=== PATIENT | female | born 1935 | race Caucasian/White ===

== ENCOUNTER 2016-07-19 20:36 | Observation (INO) | payer OTHER ==
[~2016-07-19 20:36] MED LIST: ALPR0.25 PO; AMLO5TAB2 PO; ASPI325T PO; CARB10TA2 PO; GLYB2.5T3 PO; HYDR-3580 PO; ISOS20TA PO; LACTCAP8 PO; LACTTAB8 PO; LEVO50TA4 PO; LEXA10TA PO; LOSA100T PO; METO25TA3 PO; NITR50VP SL; NYST15T TOPICAL; PROT40TA PO; RANO500 PO; SENN8.6T81 PO; oxygen
[2016-07-19 20:48] VITALS: BP 166/88; PULSE 73; RESP 18; TEMP 97.4; O2SAT 95
[2016-07-19] MEDS ORDERED: SODIUM CHLORIDE 0.9% FLUSH 5 ML FLUSH IVF PRN ×2 (21:00→23:00)
[2016-07-19 21:30] VITALS: O2SAT 95
--- NOTE | 2016-07-19 21:43 | RADRPT ---
EXAM DATE/TIME: 07/19/2016 21:31 [place] COMPARISON: CHEST SINGLE AP, May 26, 2016, 18:28. INDICATIONS : Chest pain MEDICAL HISTORY : Hypertension. SURGICAL HISTORY : Cardiac stents ENCOUNTER: Initial ACUITY: 1 day PAIN SCORE: 0/10 LOCATION: Bilateral chest FINDINGS: No acute infiltrates seen. No pleural effusion or pneumothorax. Mild cardiomegaly is stable. Patient has had previous median sternotomy and CABG. CONCLUSION: No evidence of acute cardiopulmonary disease. Compensated cardiomegaly. Mundo Gresham MD on July 19, 2016 at 21:41 Board Certified Radiologist. This report was verified electronically.
--- NOTE | 2016-07-19 21:45 | PD ---
HPI Chief Complaint: Chest Pain Time Seen by Provider: 20:49 Travel History International Travel<30 days: No Contact w/Intl Traveler<30days: No Traveled to known affect area: No History of Present Illness HPI 81-year-old female with history of CAD, 11 stents, CABG in 2006 with redo bypass in 2008, here for evaluation of chest pain. Patient describes substernal chest pressure that started about 30 minutes prior to arrival. She states that the pain has improved, however is still there. She follows with Dr. Shelley whom she states she saw 3 weeks ago and he told her that she was doing fine. No dyspnea. No paresthesias or motor deficits. The patient also expresses concerns that she may have a UTI. 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29) Cardiac Catheterization: Yes Cardiovascular Problems: Yes High Cholesterol: Yes Chemotherapy: Yes Chest Pain: Yes Congestive Heart Failure: Yes COPD: Yes Cerebrovascular Accident: Yes (left sided weakness) Coronary Artery Disease: Yes Diabetes: Yes Patient Takes Glucophage: No Diminished Hearing: No Endocrine: Yes Gastrointestinal Disorders: No GERD: Yes Glaucoma: No Genitourinary: Yes Headaches: No Hepatitis: No Hiatal Hernia: No Heparin Induced Thrombocytopen: No Hypertension: Yes Immune Disorder: No Implanted Vascular Access Dvce: Yes Kidney Stones: No Musculoskeletal: Yes (SPINAL STENOSIS) Neurologic: Yes (PARKINSONS ) Parkinson's Disease: Yes Psychiatric: No Reproductive: No Respiratory: Yes Migraines: No Myocardial Infarction: Yes Radiation Therapy: No Renal Failure: No Seizures: No Sickle Cell Disease: No Sleep Apnea: No Thyroid Disease: Yes Ulcer: No PNEUMOCCOCAL Vaccine (Year): 2007 ?: Not Menopausal: Yes : 11 Para: 4 Miscarriage: 7 Past Surgical History AICD: No Appendectomy: Yes Arteriovenous Shunt: No Body Medical Devices: cardiac stents x 11. Cardiac Surgery: Yes (QUADRUPLE BYPASS X2) Section: No Cholecystectomy: Yes Coronary Artery Bypass Graft: Yes Coronary Stent: Yes (11 STENTS) Ear Surgery: No Endocrine Surgery: No Eye Surgery: No Genitourinary Surgery: No Gynecologic Surgery: Yes (FIBROIDS REMOVED) Insulin Pump: No Joint Replacement: No Neurologic Surgery: Yes (TUMOR REMOVED FROM SPINE, TWO RIBS REMOVED) Oral Surgery: No Pacemaker: No Thoracic Surgery: Yes (QUAD BYPASS x2 (2007, 2009), ribs removed) Other Surgery: Yes (SARCOMA BILATERAL BREASTS,SPINE AND RIBS,UTERINE FIBROIDS) Social History Alcohol Use: No Tobacco Use: No ("QUIT 50 YEARS AGO") Substance Use: No Allergies-Medications (Allergen,Severity, Reaction): Coded Allergies: Contrast Media (Verified Allergy, Severe, Anaphylaxis, 07/19/16) Ilosone (Verified Allergy, Severe, UNKNOWN, 07/19/16) Iron (Verified Adverse Reaction, Intermediate, PT DOES NOT KNOW, 07/19/16) PT CAN'T TOLERATE "PO" IRON PILLS....PER DR. DARNELL WILLIS patient does not have allergy to iron (tolerated IV iron without issue)... PER DR. ALESHA MAXWELL (POM NOTE- 02/23/14) Reported Meds & Prescriptions Reported Meds & Active Scripts Active Reported [oxygen] 2 Hydrocodone-Acetaminophen 7.5-325 mg Tab 1 Tab PO Q6H PRN Sennosides 8.6 Mg Tab 17.2 Mg PO TID Ranexa ER 12 HR (Ranolazine) 500 Mg Tab 500 Mg PO DAILY Protonix (Pantoprazole Sodium) 40 Mg Tab 40 Mg PO DAILY Nystatin Topical (Nystatin) 100,000 unit/gm Cream 1 Applic TOPICAL ONCE PRN Nitroglycerin 5 Mg/Ml Inj 0.4 Mg SL PRN Metoprolol Tartrate 25 Mg Tab 25 Mg PO BID Losartan (Losartan Potassium) 100 Mg Tab 100 Mg PO DAILY Levothyroxine (Levothyroxine Sodium) 50 Mcg Tab 50 Mcg PO DAILY Probiotic (Lactobacillus Acidophilus) 1 Cap Cap 1 Cap PO DAILY Lactobacillus Acidophilus 1 Tab Tab 1 Tab PO TIDAC Isosorbide Mononitrate 20 Mg Tab 120 Mg PO BID Take 2 doses 7 hours apart. Glyburide 2.5 Mg Tab 2.5 Mg PO DAILY Take with meals at the same time each day Lexapro (Escitalopram Oxalate) 10 Mg Tab 10 Mg PO DAILY Carbidopa-Levodopa 10-100 Mg Tab 1 Tab PO TID Amlodipine (Amlodipine Besylate) 5 Mg Tab 5 Mg PO DAILY Aspirin 325 Mg Tab 325 Mg PO DAILY Alprazolam 0.25 Mg Tab 0.25 Mg PO HS PRN Review of Systems Except as stated in HPI: all other systems reviewed are Neg Physical Exam Narrative GENERAL: Well-developed, well-nourished, elderly-appearing female, awake, alert , no acute distress. SKIN: Warm and dry. HEAD: Atraumatic. Normocephalic. EYES: Pupils equal and round. No scleral icterus. No injection or drainage. ENT: Mucous membranes pink and moist. NECK: Trachea midline. No JVD. CARDIOVASCULAR: Regular rate and rhythm. Distal pulses brisk and equal bilaterally. RESPIRATORY: No accessory muscle use. Clear to auscultation. Breath sounds equal bilaterally. GASTROINTESTINAL: Abdomen soft, non-tender, nondistended. MUSCULOSKELETAL: No obvious deformities. No clubbing. No cyanosis. No edema. No chest wall tenderness. NEUROLOGICAL: Awake and alert. No obvious cranial nerve deficits. Motor grossly within normal limits. Normal speech. PSYCHIATRIC: Appropriate mood and affect; insight and judgment normal. Data Data Last Documented VS Vital Signs Date Time Temp Pulse Resp B/P Pulse Ox O2 Delivery O2 Flow Rate FiO2 07/19/16 21:30 95 Room Air 07/19/16 20:53 81 18 07/19/16 20:48 97.4 166/88 Orders Basic Metabolic Panel (Bmp) (07/19/16 20:58) Ckmb (Isoenzyme) Profile (07/19/16 20:58) Complete Blood Count With Diff (07/19/16 20:58) Prothrombin Time / Inr (Pt) (07/19/16 20:58) Act Partial Throm Time (Ptt) (07/19/16 20:58) Troponin I (07/19/16 20:58) Lipase (07/19/16 20:58) Chest, Single Ap (07/19/16 20:58) Ecg Monitoring (07/19/16 20:58) Bilateral Bp Monitoring (07/19/16 20:58) Iv Access Insert/Monitor (07/19/16 20:58) Oximetry (07/19/16 20:58) Sodium Chloride 0.9% Flush (Ns Flush) (07/19/16 21:00) Urinalysis - C+S If Indicated (07/19/16 20:58) Cath For Specimen (07/19/16 20:58) CKMB (07/19/16 21:20) CKMB% (07/19/16 21:20) Labs Laboratory Tests Test 07/19/16 07/19/16 21:20 21:42 White Blood Count 8.0 TH/MM3 Red Blood Count 4.99 MIL/MM3 Hemoglobin 13.5 GM/DL Hematocrit 41.0 % Mean Corpuscular Volume 82.1 FL Mean Corpuscular Hemoglobin 27.0 PG Mean Corpuscular Hemoglobin 32.8 % Concent Red Cell Distribution Width 15.9 % Platelet Count 153 TH/MM3 Mean Platelet Volume 9.4 FL Neutrophils (%) (Auto) 77.7 % Lymphocytes (%) (Auto) 13.3 % Monocytes (%) (Auto) 6.4 % Eosinophils (%) (Auto) 2.0 % Basophils (%) (Auto) 0.6 % Neutrophils # (Auto) 6.3 TH/MM3 Lymphocytes # (Auto) 1.1 TH/MM3 Monocytes # (Auto) 0.5 TH/MM3 Eosinophils # (Auto) 0.2 TH/MM3 Basophils # (Auto) 0.0 TH/MM3 CBC Comment DIFF FINAL Differential Comment Prothrombin Time 11.4 SEC Prothromb Time International 1.0 RATIO Ratio Activated Partial 22.1 SEC Thromboplast Time Sodium Level 136 MEQ/L Potassium Level 4.7 MEQ/L Chloride Level 101 MEQ/L Carbon Dioxide Level 27.3 MEQ/L Anion Gap 8 MEQ/L Blood Urea Nitrogen 28 MG/DL Creatinine 1.44 MG/DL Estimat Glomerular Filtration 35 ML/MIN Rate Random Glucose 146 MG/DL Calcium Level 9.3 MG/DL Total Creatine Kinase 103 U/L Creatine Kinase MB LESS THAN 0.5 NG/ML Troponin I LESS THAN 0.02 NG/ML Lipase 163 U/L Urine Color YELLOW Urine Turbidity HAZY Urine pH 5.5 Urine Specific [place] 1.028 Urine Protein 100 mg/dL Urine Glucose (UA) NEG mg/dL Urine Ketones NEG mg/dL Urine Occult Blood SMALL Urine Nitrite NEG Urine Bilirubin NEG Urine Urobilinogen LESS THAN 2.0 MG/DL Urine Leukocyte Esterase SMALL Urine RBC 20 /hpf Urine WBC 6 /hpf Urine Squamous Epithelial 1 /hpf Cells Urine Mucus FEW /lpf Microscopic Urinalysis Comment CATH-CULT NOT IND MDM Medical Decision Making Medical Screen Exam Complete: Yes Emergency Medical Condition: Yes Medical Record Reviewed: Yes Interpretation(s) EKG: Atrial fibrillation, rate 79, left axis deviation, RBBB with LAFB, T-wave inversions in V1 through V3, essentially unchanged from prior. Differential Diagnosis ACS, pneumothorax, pericarditis, PE, pneumonia, dissection Narrative Course Vital signs show heart rate 73, blood pressure 166/88, pulse ox 95% on room air , oral temp of 97.4F. CBC is unremarkable. BMP is remarkable for BUN 20, creatinine 1.44, GFR 35 which is around her baseline, otherwise unremarkable. Lipase is 163. Cardiac enzymes are negative. Catheterized urine specimen shows hazy urine, 100 protein, small occult blood, small leukocyte esterase, 20 RBCs, 6 WBCs. UA findings are not suggestive of UTI and RBCs are likely from slight trauma from catheter specimen. Chest x-ray shows no acute disease., Tachycardia megaly. Case discussed with head coach Dr. Brown who is covering for the patient's head coach Dr. Shelley. Given significant cardiac history, he agrees with keeping the patient overnight in the chest pain center for further cardiac evaluation. The patient was made aware of all findings and of plan for admission. Diagnosis Primary Impression: Chest pain Qualified Code: R07.9 - Chest pain, unspecified type Admitting Information Admitting Physician Requests: Observation Diony Juan MD Jul 19, 2016 21:45
[2016-07-19 22:01] LABS: BLOOD, URINE SMALL (NEG); GLUCOSE,URINE NEG (NEG); KETONE, URINE NEG (NEG); MUCUS URINE FEW /lpf (OCC); NITRITE,URINE NEG (NEG); PH, URINE 5.5 (5.0-8.5); SQUAMOUS EPITHELIAL CELL URINE 1 /hpf (0-5); URINE COLOR YELLOW (YELLW/STRAW)
[2016-07-19 22:02] LABS: COMMENT (UR) CATH-CULT NOT IND; CULTURE IF INDICATED CATH CULTURE NOT IND
[2016-07-19 22:04] LABS: AUTOMATED NEUTROPHIL # 6.3 TH/MM3 (1.8-7.7); BASOPHIL % 0.6 % (0.0-2.0); EOSINOPHIL # 0.2 TH/MM3 (0-0.4); HEMO FLAGS DIFF FINAL; LYMPH % 13.3 % (9.0-44.0); LYMPHOCYTE # 1.1 TH/MM3 (1.0-4.8); MEAN CELL VOLUME 82.1 FL (80.0-100.0); MEAN CORPUSCULAR HGB CONC 32.8 % (32.0-36.0); MONO % 6.4 % (0.0-8.0); NEUT % 77.7 % (16.0-70.0); PLATELET COUNT 153 TH/MM3 (150-450); RED BLOOD COUNT 4.99 MIL/MM3 (4.00-5.30); RED CELL DISTRIBUTION WIDTH 15.9 % (11.6-17.2)
[2016-07-19 22:23] LABS: ANION GAP 8 MEQ/L (5-15); APTT (PATIENT) 22.1 SEC (24.3-30.1); PROTHROMBIN TIME - PATIENT 11.4 SEC (9.8-11.6)
[2016-07-19 22:29] LABS: BICARBONATE 27.3 MEQ/L (21.0-32.0); BLOOD UREA NITROGEN 28 MG/DL (7-18); CHLORIDE 101 MEQ/L (98-107); CREATINE KINASE 103 U/L (26-192); GLOMERULAR FILTRATION RATE 35 ML/MIN (>89); SODIUM (NA) 136 MEQ/L (136-145)
[2016-07-19 22:30] LABS: POTASSIUM 4.7 MEQ/L (3.5-5.1)
[2016-07-19 22:43] LABS: CKMB LESS THAN 0.5 NG/ML (0.5-3.6)
[2016-07-19 23:00] VITALS: BP 144/72; PULSE 82; RESP 18; O2SAT 99
[2016-07-19] MEDS ORDERED: ASPIRIN 81 MG CHEW TAB PO ONE (23:00)
[2016-07-20] VITALS (9 sets, daily range): BP systolic 134–169; BP diastolic 60–80; PULSE 58–88; RESP 18–20; TEMP 97.9–99.4; O2SAT 95–97
[2016-07-20] MEDS: SODIUM CHLORIDE 0.9% FLUSH 5 ML FLUSH IVF SCH ×2 (09:00→21:11)
[2016-07-20] MEDS: RANOLAZINE 500 MG EXTENDED RELEASE TAB PO SCH (12:00)
[2016-07-20] MEDS: LACTOBACILLUS ACIDOPHILUS TAB PO SCH (12:14)
[2016-07-20] MEDS: LEVOTHYROXINE SODIUM 50 MCG TAB PO SCH (12:14)
[2016-07-20] MEDS: ESCITALOPRAM OXALATE 10 MG TAB PO SCH (12:15)
[2016-07-20] MEDS: ASPIRIN 325 MG TAB PO SCH (12:15)
[2016-07-20] MEDS: glyBURIDE 2.5 MG TAB PO SCH (12:15)
[2016-07-20] MEDS: amLODIPine BESYLATE 5 MG TAB PO SCH (12:15)
[2016-07-20] MEDS: PANTOPRAZOLE SOD 40 MG DELAYED RELEASE TAB PO SCH (12:15)
[2016-07-20] MEDS: METOPROLOL TARTRATE 25 MG TAB PO SCH ×2 (12:15→21:11)
[2016-07-20] MEDS: LOSARTAN 50 MG TAB PO SCH (12:15)
--- NOTE | 2016-07-20 13:03 | HHI.DCPOC ---
Discharge Care Plan Diagnosis: (1) Chest pain (2) Hx of CABG (3) Atrial fibrillation (4) H/O heart artery stent Goals to Promote Your Health * To prevent worsening of your condition and complications * To maintain your health at the optimal level Directions to Meet Your Goals Take your medications as prescribed Follow your dietary instruction Follow activity as directed Keep your appointments as scheduled Take your immunizations and boosters as scheduled If your symptoms worsen call your PCP, if no PCP go to Urgent Care Center or Emergency Room Smoking is Dangerous to Your Health. Avoid second hand smoke Call the 24-hour hour crisis hotline for domestic abuse at [facility] Jul 20, 2016 13:03
--- NOTE | 2016-07-20 14:18 | MH ---
cc: VAZQUEZ BUTLER MD DATE OF ADMISSION: 07/19/2016 DATE OF : 1935 CHIEF COMPLAINT Chest pain HISTORY OF PRESENT ILLNESS This 81-year-old patient with known coronary artery disease including open heart surgery and 11 cardiac stents and developed chest pain approximately four to five p.m. last night he characterized as "someone took a screwdriver into the center of my chest". There was radiation of pain to bilateral jaws and her neck area. Duration was approximately 15 minutes during this time it hurt to take a deep breath and she was nauseated diaphoretic and states she vomited in the emergency squad. No known precipitating factors or relieving factors. The patient followed with Dr. Shelley states she has seen him 3 weeks ago. PAST MEDICAL HISTORY: Past medical history includes; 1. COPD 2. Diabetes 3. hyperlipidemia 4. Hypertension 5. Parkinson's disease 6. Atrial fibrillation. 7. congestive heart failure 8. gastroesophageal reflux disease 9. 11 cardiac stents PAST SURGICAL HISTORY She had coronary artery bypass graft in 2006 and a redo bypass in 2008. SOCIAL HISTORY She lives at home with her son, her son helps take care of her she quit smoking at age 21. No alcohol or illegal drug use. States she has not been able to walk and has been progressively declining over the past 6 weeks and does follow with her primary provider and her primary care provider is made aware of this prior to arrival to this emergency room visit. PAST CARDIAC TESTING: She had seen Dr. Shelley three ago, at that time he recommended a cardiac nuclear stress test. She subsequently has declined that testing and she was admitted to the chest pain center in the fall of 2015 at that time was also recommended for her to have a nuclear stress test which she declined. MEDICATIONS Current medications include 1. Losartan 100 mg daily. 1. Lexapro 10 mg daily 2. a probiotic 1 tablet daily. 3. Xanax 0.25 mg q.h.s. p.r.n. as needed for anxiety. 4. Metoprolol Tartrate 25 mg b.i.d. 5. Ranexa 500 mg daily. 6. Amlodipine 5 mg daily. 7. Carbidopa / Levodopa 10/100, 3 tablets p.o. b.i.d. 8. Imdur 120 mg p.o. b.i.d. 9. Nitroglycerin sublingual p.r.n. as needed for chest pain. 10. Aspirin 325 mg daily. 11. Hydrocodone / Acetaminophen 7.5 / 3.25 mg tablet 1 tablet q.6 h p.r.n. 12. Protonix 40 mg daily. 13. Glipizide 2.5 mg daily. 14. Levothyroxine 50 mcg daily. ALLERGIES CONTRAST MEDIA IRON ILOSONE REVIEW OF SYSTEMS IN GENERAL: She states she has been in her general state of health with no recent illness, fevers, fatigue, malaise, reports an increasing progression of weakness where she is unable to walk. She is following with her primary care provider regarding this. Prior to that she was not walking much improved pretty sedentary. HEAD, EYES, EARS, NOSE, AND THROAT: No headache or dysphagia. CARDIOVASCULAR SYSTEM: No current chest pain, otherwise as stated above. RESPIRATORY: No current shortness of breath. No recent upper respiratory infection, cough, wheeze or hemoptysis. ABDOMEN: No diarrhea, constipation pain distension, blood in stools, nausea or vomiting other than during chest pain episode as mentioned above. GENITOURINARY: No dysuria or urgency, frequency. Does report a change in her urine is more concentrated and foul-smelling EXTREMITIES: No lower leg pain. Reports occasional numbness in her right lower extremity this is chronic and unchanged. MUSCULOSKELETAL: No change in Range of motion, no discomfort. Warmth, redness or swelling of her joints. Reports a progressive fatigue E[place] and is unable to walk and has been mostly bed bound for the last couple weeks. NEUROLOGIC: No motor or sensory deficits, loss of consciousness or change in memory. PSYCHIATRIC: No anxiety or depression. SKIN: No concerning lesions or rashes. PHYSICAL EXAMINATION VITAL SIGNS: Temperature is 98.4, pulse 80, respiratory 20, blood pressure 135/80 and 96% on room air. IN GENERAL: She is alert, obese, well-nourished, well-developed in no acute distress pleasant female. HEAD, EYES, EARS, NOSE, AND THROAT: Head: Normocephalic, atraumatic. Eyes clear. Pupils clear conjunctivae without injection. NECK: Neck is supple. Trachea is midline. CARDIOVASCULAR SYSTEM: She has an regular rate that is controlled without murmur, rub or gallop. No JVD. S1-S2. No S3. No S4. RESPIRATORY: Clear lungs throughout bilateral with no crackles, wheeze or rhonchi. Diminished in the bases. She is nonlabored, speaking in full sentences. Symmetrical chest rise. ABDOMEN: Abdomen is obese, soft, nontender, nondistended. Positive bowel sounds. EXTREMITIES: Pulses +2 x4. No dependent edema. NEUROLOGIC: Cranial nerves II through XII grossly intact. Motor strength 5/5. MUSCULOSKELETAL: Normal tone x4. She is nontender. No obvious deformities. PSYCHIATRIC: Psych she is alert, oriented x3 has a pleasant affect appropriate to mood, insight and judgment. SKIN: Skin is warm and dry with a normal turgor and texture. LABORATORY CBC is unremarkable. Chemistry has a creatinine of 1.44 and random glucose 146 otherwise unremarkable. Three sets of cardiac enzymes are negative. Coagulation is unremarkable. Also UA was completed is unremarkable. Chest x-ray Read by radiologist has a conclusion of no evidence of acute cardiopulmonary disease. Compensated cardiomegaly. Three EKG's. Atrial fibrillation with the right bundle branch block and T-wave abnormality and Q-waves in her inferior leads. ASSESSMENT/PLAN Chest pain. Patient has been admitted to the chest pain center. She was ruled out with three sets of EKG's and cardiac enzymes was also seen evaluated by Dr. Vazquez Butler. The patient was offered and encouraged to have a chemical stress test. The patient is adamant that she will not have a chemical stress test and we have called Dr. Myers who was covering for Dr. Shelley and he has been made aware of the patient's arrival to chest pain center and her continued refusal for any further cardiac testing. She states she would like to go home. All of her home medications have been reordered while appropriate in the chest pain center regarding her concern of her dark urine have encouraged her to increase her water intake. She has been encouraged to follow up with her primary care provider regarding her inability to walk over the past few weeks. The patient states her primary care provider is aware and is doing further testing. DICTATED BY: MELISSA Benedict Brent Allen/yomi /1:08 PM /2:15 PM
--- NOTE | 2016-07-20 15:59 | EKG ---
Date Performed: 07/20/2016 Time Performed: 03:54:50 PTAGE: 81 years EKG: ATRIAL FIBRILLATION INDETERMINATE AXIS RIGHT BUNDLE BRANCH BLOCK LEFT ANTERIOR FASCICULAR B LOCK MODERATE T-WAVE ABNORMALITY, CONSIDER LATERAL ISCHEMIA MODERATE T-WAVE ABNORMALITY, CONSIDER INF ERIOR ISCHEMIA ABNORMAL ECG Since PREVIOUS TRACING , no significant change noted PREVIOUS TRACIN07/19/2016 23.45 DOCTOR: Asuncion Oakes Interpretating Date/Time 07/20/2016 15:57:48
--- NOTE | 2016-07-20 16:00 | EKG ---
Date Performed: 07/19/2016 Time Performed: 23:45:16 PTAGE: 81 years EKG: ATRIAL FIBRILLATION RIGHT BUNDLE BRANCH BLOCK LEFT ANTERIOR FASCICULAR BLOCK ABNORMAL ECG S jim PREVIOUS TRACING , no significant change noted PREVIOUS TRACIN07/19/2016 19.44 DOCTOR: Asuncion Oakes Interpretating Date/Time 07/20/2016 15:59:24
--- NOTE | 2016-07-20 16:02 | EKG ---
Date Performed: 07/19/2016 Time Performed: 19:44:25 PTAGE: 81 years EKG: ATRIAL FIBRILLATION RIGHT BUNDLE BRANCH BLOCK LEFT ANTERIOR FASCICULAR BLOCK ABNORMAL ECG S jim PREVIOUS TRACING , no significant change noted PREVIOUS TRACIN05/27/2016 00.25 DOCTOR: Asuncion Oakes Interpretating Date/Time 07/20/2016 16:01:04
[2016-07-21 00:04] VITALS: BP 145/70; PULSE 64; RESP 20; TEMP 98.3; O2SAT 95
[2016-07-21 03:27] VITALS: BP 117/67; PULSE 57; RESP 20; TEMP 98; O2SAT 95
[2016-07-21] MEDS: LEVOTHYROXINE SODIUM 50 MCG TAB PO SCH (05:43)
[2016-07-21 08:00] VITALS: BP 194/80; PULSE 56; PULSE 62; RESP 20; TEMP 96.4; O2SAT 97
[2016-07-21 08:02] VITALS: O2SAT 96
[2016-07-21] MEDS: PANTOPRAZOLE SOD 40 MG DELAYED RELEASE TAB PO SCH (08:18)
[2016-07-21] MEDS: LACTOBACILLUS ACIDOPHILUS TAB PO SCH (08:18)
[2016-07-21] MEDS: glyBURIDE 2.5 MG TAB PO SCH (08:18)
[2016-07-21] MEDS: RANOLAZINE 500 MG EXTENDED RELEASE TAB PO SCH (08:19)
[2016-07-21] MEDS: METOPROLOL TARTRATE 25 MG TAB PO SCH (08:19)
[2016-07-21] MEDS: ASPIRIN 325 MG TAB PO SCH (08:19)
[2016-07-21] MEDS: LOSARTAN 50 MG TAB PO SCH (08:19)
[2016-07-21] MEDS: amLODIPine BESYLATE 5 MG TAB PO SCH (08:19)
[2016-07-21] MEDS: SODIUM CHLORIDE 0.9% FLUSH 5 ML FLUSH IVF SCH (08:19)
[2016-07-21] MEDS: ESCITALOPRAM OXALATE 10 MG TAB PO SCH (08:19)
[2016-07-21] MEDS ORDERED: ONDANSETRON HCL 4 MG/2 ML VIAL IV PUSH ONE (10:00)
[2016-07-21] MEDS ORDERED: COMMODE 3-IN-11 MIS (10:51)
[2016-07-21 12:00] VITALS: BP 175/82; PULSE 73; RESP 20; TEMP 95; O2SAT 98
== END 2016-07-21 13:30 | disposition home or self-care (01) ==
LOC: NEPE 20:36 → NEDA 22:52 → NEPFCDU 07-20 01:03
PROVIDERS: ADMIT Internal Medicine Interventional Cardiology; ATTEND Internal Medicine Interventional Cardiology
DX: R07.89 Other chest pain (principal); I48.91 Unspecified atrial fibrillation; I25.10 Atherosclerotic heart disease of native coronary artery without angina pectoris; I10 Essential (primary) hypertension; I50.9 Heart failure, unspecified; I25.2 Old myocardial infarction; E78.5 Hyperlipidemia, unspecified; E11.9 Type 2 diabetes mellitus without complications; J44.9 Chronic obstructive pulmonary disease, unspecified; J45.909 Unspecified asthma, uncomplicated; K21.9 Gastro-esophageal reflux disease without esophagitis; E78.00 Pure hypercholesterolemia, unspecified; M19.90 Unspecified osteoarthritis, unspecified site; Z95.5 Presence of coronary angioplasty implant and graft; Z95.1 Presence of aortocoronary bypass graft; Z86.73 Personal history of transient ischemic attack (TIA), and cerebral infarction without residual deficits; Z87.891 Personal history of nicotine dependence
CPT/HCPCS: 71010; 80048; 81001; 82550; 82552; 83690; 84484; 85025; 85610; 85730; 93005; 99285; G0378; J2405

== ENCOUNTER 2017-01-03 18:18 | Emergency (ER) | payer OTHER ==
[~2017-01-03] VITALS: Ht 162.6 cm; Wt 118.0 kg
[~2017-01-03 18:18] MED LIST changes: +COMMODE 3-IN-11 MIS; -LACTTAB8 PO; -NYST15T TOPICAL; -SENN8.6T81 PO; -oxygen
[2017-01-03 18:37] VITALS: BP 157/70; PULSE 60; RESP 20; TEMP 98.2; O2SAT 97
[2017-01-03] MEDS ORDERED: NEUR300C PO (18:45)
--- NOTE | 2017-01-03 18:54 | PD ---
HPI . 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 Patient tells me that she has been experiencing generalized weakness for quite some time and thinks that it may have worsened slightly yesterday and today. She decided to come in for further evaluation as she thinks it has become somewhat harder for her to get around her house. She does live with her son, who is a IRR[employer]ATION [employer]ER and helps her out on a daily basis. Today she is only reporting generalized weakness and tells me she feels fatigued. She also admits to dry mouth that has been going on for the past few weeks. She denies any recent fall or injury. She denies any nausea, vomiting, chest pain, shortness of breath or abdominal pain. She does admit to occasional constipation, which is chronic in nature. 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29) Cardiac Catheterization: Yes Cardiovascular Problems: Yes High Cholesterol: Yes Chemotherapy: Yes Chest Pain: Yes Congestive Heart Failure: Yes COPD: Yes Cerebrovascular Accident: Yes (left sided weakness) Coronary Artery Disease: Yes Diabetes: Yes Patient Takes Glucophage: No Diminished Hearing: No Endocrine: Yes Gastrointestinal Disorders: No GERD: Yes Glaucoma: No Genitourinary: Yes Headaches: No Hepatitis: No Hiatal Hernia: No Heparin Induced Thrombocytopen: No Hypertension: Yes Immune Disorder: No Implanted Vascular Access Dvce: Yes Kidney Stones: No Medical other: Yes (RHEUMATIC FEVER A CHILD) Musculoskeletal: Yes (SPINAL STENOSIS) Neurologic: Yes (PARKINSONS ) Parkinson's Disease: Yes Psychiatric: No Reproductive: No Respiratory: Yes Migraines: No Myocardial Infarction: Yes Radiation Therapy: No Renal Failure: No Seizures: No Sickle Cell Disease: No Sleep Apnea: No Thyroid Disease: Yes Ulcer: No Tetanus Vaccination: > 5 Years Influenza Vaccination: Yes PNEUMOCCOCAL Vaccine (Year): 2007 ?: Not Menopausal: Yes : 11 Para: 4 Miscarriage: 7 Past Surgical History AICD: No Appendectomy: Yes Arteriovenous Shunt: No Body Medical Devices: cardiac stents x 11. Cardiac Surgery: Yes (QUADRUPLE BYPASS X2) Section: No Cholecystectomy: Yes Coronary Artery Bypass Graft: Yes Coronary Stent: Yes (11 STENTS) Ear Surgery: No Endocrine Surgery: No Eye Surgery: No Genitourinary Surgery: No Gynecologic Surgery: Yes (FIBROIDS REMOVED) Insulin Pump: No Joint Replacement: No Neurologic Surgery: Yes (TUMOR REMOVED FROM SPINE, TWO RIBS REMOVED) Oral Surgery: No Pacemaker: No Thoracic Surgery: Yes (QUAD BYPASS x2 (2006, 2008), ribs removed) Other Surgery: Yes (SARCOMA BILATERAL BREASTS,SPINE AND RIBS,UTERINE FIBROIDS) Family History Family Myocardial Infarction: Yes Social History Alcohol Use: No Tobacco Use: No ("QUIT 50 YEARS AGO") Substance Use: No (PT DENIES) Allergies-Medications (Allergen,Severity, Reaction): Coded Allergies: Contrast Media (Verified Allergy, Severe, Anaphylaxis, 01/03/17) Ilosone (Verified Allergy, Severe, RASH, 01/03/17) Iron (Verified Adverse Reaction, Intermediate, RASH, 01/03/17) Reported Meds & Prescriptions Reported Meds & Active Scripts Active Reported Neurontin (Gabapentin) 300 Mg Cap 300 Mg PO TID Hydrocodone-Acetaminophen 7.5-325 mg Tab 1 Tab PO Q6H PRN Ranexa ER 12 HR (Ranolazine) 500 Mg Tab 500 Mg PO DAILY Protonix (Pantoprazole Sodium) 40 Mg Tab 40 Mg PO DAILY Nitroglycerin 5 Mg/Ml Inj 0.4 Mg SL PRN Metoprolol Tartrate 25 Mg Tab 25 Mg PO BID Losartan (Losartan Potassium) 100 Mg Tab 100 Mg PO DAILY Levothyroxine (Levothyroxine Sodium) 50 Mcg Tab 50 Mcg PO DAILY Probiotic (Lactobacillus Acidophilus) 1 Cap Cap 1 Cap PO DAILY Isosorbide Mononitrate 20 Mg Tab 120 Mg PO BID Take 2 doses 7 hours apart. Glyburide 2.5 Mg Tab 2.5 Mg PO DAILY Take with meals at the same time each day Lexapro (Escitalopram Oxalate) 10 Mg Tab 10 Mg PO DAILY Carbidopa-Levodopa 10-100 Mg Tab 3 Tab PO BID Amlodipine (Amlodipine Besylate) 5 Mg Tab 5 Mg PO DAILY Aspirin 325 Mg Tab 325 Mg PO DAILY Alprazolam 0.25 Mg Tab 0.25 Mg PO HS PRN Review of Systems General / Constitutional: No: Fever Eyes: No: Visual changes HENT: No: Headaches Cardiovascular: No: Chest Pain or Discomfort Respiratory: No: Shortness of Breath Gastrointestinal: No: Abdominal Pain Genitourinary: No: Dysuria Musculoskeletal: No: Pain Skin: No Rash Neurologic: Positive: Weakness Psychiatric: No: Depression Endocrine: No: Polydipsia Hematologic/Lymphatic: No: Easy Bruising Physical Exam Narrative GENERAL: AAO x 3, no acute distress, Well-nourished, well-developed patient. On nasal cannula. SKIN: Warm and dry. No visible rashes or bruising. Excoriations scattered over bilateral lower extremities right greater than left. no evidence of cellulitis HEAD: Normocephalic and atraumatic. EYES: No scleral icterus. No injection or drainage. EOM intact, PERRLA ENT: No nasal drainage noted. Mucous membranes pink. Airway patent. NECK: Supple, trachea midline. No JVD. No lymphadenopathy. CARDIOVASCULAR: Regular rate and rhythm without murmurs, gallops, or rubs. RESPIRATORY: Breath sounds equally diminished bilaterally. No accessory muscle use. No rhonchi or rales. No wheezing. GASTROINTESTINAL: Abdomen soft, non-tender, nondistended. Normoactive bowel sounds EXTREMITIES: No cyanosis or edema. Pedal pulses intact bilaterally. BACK: Nontender without obvious deformity. No CVA tenderness. NEURO: CN II-12 intact, senior sales associate strength normal b/l, UE and LE 5/5, no focal deficits PSYCH: AAO x 3, normal affect. Data Data Last Documented VS Vital Signs Date Time Temp Pulse Resp B/P Pulse Ox O2 Delivery O2 Flow Rate FiO2 01/03/17 18:40 59 18 98 Nasal Cannula 2 01/03/17 18:37 98.2 157/70 Orders Electrocardiogram (01/03/17 ) Complete Blood Count With Diff (01/03/17 19:05) Comprehensive Metabolic Panel (01/03/17 19:05) Prothrombin Time / Inr (Pt) (01/03/17 19:05) Act Partial Throm Time (Ptt) (01/03/17 19:05) Urinalysis - C+S If Indicated (01/03/17 19:05) Chest, Single Ap (01/03/17 ) Urine Culture (01/03/17 21:40) Labs Laboratory Tests Test 01/03/17 01/03/17 19:20 21:40 White Blood Count 5.5 TH/MM3 Red Blood Count 4.44 MIL/MM3 Hemoglobin 12.8 GM/DL Hematocrit 37.8 % Mean Corpuscular Volume 85.3 FL Mean Corpuscular Hemoglobin 28.7 PG Mean Corpuscular Hemoglobin 33.7 % Concent Red Cell Distribution Width 14.1 % Platelet Count 153 TH/MM3 Mean Platelet Volume 9.9 FL Neutrophils (%) (Auto) 71.0 % Lymphocytes (%) (Auto) 18.8 % Monocytes (%) (Auto) 8.1 % Eosinophils (%) (Auto) 1.7 % Basophils (%) (Auto) 0.4 % Neutrophils # (Auto) 3.9 TH/MM3 Lymphocytes # (Auto) 1.0 TH/MM3 Monocytes # (Auto) 0.4 TH/MM3 Eosinophils # (Auto) 0.1 TH/MM3 Basophils # (Auto) 0.0 TH/MM3 CBC Comment DIFF FINAL Differential Comment Prothrombin Time 11.6 SEC Prothromb Time International 1.0 RATIO Ratio Activated Partial 25.4 SEC Thromboplast Time Sodium Level 138 MEQ/L Potassium Level 4.5 MEQ/L Chloride Level 104 MEQ/L Carbon Dioxide Level 25.9 MEQ/L Anion Gap 8 MEQ/L Blood Urea Nitrogen 24 MG/DL Creatinine 1.35 MG/DL Estimat Glomerular Filtration 38 ML/MIN Rate Random Glucose 161 MG/DL Calcium Level 9.3 MG/DL Total Bilirubin 0.9 MG/DL Aspartate Amino Transf 25 U/L (AST/SGOT) Alanine Aminotransferase 7 U/L (ALT/SGPT) Alkaline Phosphatase 55 U/L Total Protein 7.3 GM/DL Albumin 3.6 GM/DL Urine Color DARK-YELLOW Urine Turbidity HAZY Urine pH 5.5 Urine Specific [place] 1.025 Urine Protein 30 mg/dL Urine Glucose (UA) NEG mg/dL Urine Ketones TRACE mg/dL Urine Occult Blood NEG Urine Nitrite NEG Urine Bilirubin NEG Urine Urobilinogen 2.0 MG/DL Urine Leukocyte Esterase TRACE Urine RBC 6 /hpf Urine WBC 6 /hpf Urine Squamous Epithelial 6 /hpf Cells Urine Amorphous Sediment RARE Urine Bacteria MANY /hpf Urine Hyaline Casts 3 /lpf Urine Mucus FEW /lpf Microscopic Urinalysis Comment CULTURE INDICATED MDM Medical Decision Making Medical Screen Exam Complete: Yes Emergency Medical Condition: Yes Medical Record Reviewed: Yes Differential Diagnosis Parkinson's-related fatigue, less likely CVA, urinary tract infection, pneumonia , hypothyroidism, Narrative Course 81-year-old female here with complaints of over one months worth of weakness. She has no specific complaints other than generalized weakness and some dry mouth. Labs and chest x-ray have been ordered. This may be related to her medications and chronic conditions. However we will rule out any type of acute infection. Labs have been reviewed. Patient appears to have a urinary tract infection, which can explain her symptoms. I will go ahead and treat her with a course of antibiotics. Ultimately she'll need follow-up to primary care provider to make sure that this has been resolved. The rest of her labs are fairly unremarkable compared to prior labs in the computer. Chest x-ray is unremarkable. I discussed these findings with the patient. She was understanding. Case discussed with Dr. Eason. Patient verbalized understanding of instructions, questions were answered, and thanked me for their care. I advised them if their condition worsens, please return to the nearest emergency room for further care. Diagnosis Primary Impression: UTI (urinary tract infection) Qualified Code: N30.01 - Acute cystitis with hematuria Patient Instructions: General Instructions Additional Instructions: Please return to emergency department if your symptoms return or worsen. Follow up with your primary care provider. Take medications as prescribed. Med/Other Pt SpecificInfo: Prescription(s) given Scripts Nitrofurantoin Monohydrate Macrocrystals (Macrobid)100 Mg [id number] Mg PO BID 7 Days Ref 0 Prov:Walter Myers MD 01/03/17 Disposition: DISCHARGE HOME Condition: Stable Juliana Bullock Jan 03, 2017 18:54
[2017-01-03 19:46] LABS: AUTOMATED NEUTROPHIL # 3.9 TH/MM3 (1.8-7.7); BASOPHIL % 0.4 % (0.0-2.0); EOSINOPHIL # 0.1 TH/MM3 (0-0.4); EOSINOPHIL % 1.7 % (0.0-4.0); HEMATOCRIT 37.8 % (35.0-46.0); HEMO FLAGS DIFF FINAL; LYMPH % 18.8 % (9.0-44.0); MEAN CELL VOLUME 85.3 FL (80.0-100.0); MEAN CORPUSCULAR HEMOGLOBIN 28.7 PG (27.0-34.0); MEAN CORPUSCULAR HGB CONC 33.7 % (32.0-36.0); MONO % 8.1 % (0.0-8.0); PLATELET COUNT 153 TH/MM3 (150-450); RED BLOOD COUNT 4.44 MIL/MM3 (4.00-5.30); RED CELL DISTRIBUTION WIDTH 14.1 % (11.6-17.2); WHITE BLOOD COUNT 5.5 TH/MM3 (4.0-11.0)
[2017-01-03 19:57] LABS: APTT (PATIENT) 25.4 SEC (24.3-30.1); PROTHROMBIN TIME - PATIENT 11.6 SEC (9.8-11.6)
[2017-01-03 20:12] LABS: ALT (GPT) 7 U/L (10-53)
[2017-01-03 20:15] LABS: ALKALINE PHOSPHATASE 55 U/L (45-117); TOTAL BILIRUBIN ADULT 0.9 MG/DL (0.2-1.0)
[2017-01-03 20:22] LABS: ANION GAP 8 MEQ/L (5-15); AST (GOT) 25 U/L (15-37); BICARBONATE 25.9 MEQ/L (21.0-32.0); BLOOD UREA NITROGEN 24 MG/DL (7-18); CHLORIDE 104 MEQ/L (98-107); GLOMERULAR FILTRATION RATE 38 ML/MIN (>89); POTASSIUM 4.5 MEQ/L (3.5-5.1); SODIUM (NA) 138 MEQ/L (136-145)
--- NOTE | 2017-01-03 20:40 | RADRPT ---
EXAM DATE/TIME: 01/03/2017 19:46 [facility] COMPARISON: CHEST SINGLE AP, July 19, 2016, 21:31. INDICATIONS : Weakness, cough MEDICAL HISTORY : Hypertension. Diabetes mellitus type II. Cardiovascular disease. SURGICAL HISTORY : CABG. ENCOUNTER: Initial ACUITY: 1 day PAIN SCORE: 6/10 LOCATION: Bilateral chest FINDINGS: Cardiomegaly, median sternotomy, CABG, similar to prior. The central bronchopulmonary markings are f airly well delineated. Calcified nodule lower left lung stable. No focal infiltrate seen. Both hem idiaphragms well delineated. CONCLUSION: No acute findings. Cardiomegaly. Cruz Art MD on January 03, 2017 at 20:36 Board Certified Radiologist. This report was verified electronically.
[2017-01-03 22:11] LABS: BACTERIA, URINE MANY /hpf; BLOOD, URINE NEG (NEG); COMMENT (UR) CULTURE INDICATED; CULTURE IF INDICATED CULTURE INDICATED; GLUCOSE,URINE NEG (NEG); HYALINE CAST, URINE 3 /lpf (RARE); KETONE, URINE TRACE mg/dL (NEG); MUCUS URINE FEW /lpf (OCC); NITRITE,URINE NEG (NEG); PH, URINE 5.5 (5.0-8.5); SQUAMOUS EPITHELIAL CELL URINE 6 /hpf (0-5); URINE COLOR DARK-YELLOW (YELLW/STRAW)
[2017-01-03] MEDS ORDERED: MACR100C2 PO (22:16)
[2017-01-03 23:04] VITALS: BP 155/98; PULSE 88; RESP 16; O2SAT 96
[2017-01-04] MEDS ORDERED: ONDANSETRON ODT 4 MG TAB PO ONE (00:30)
--- NOTE | 2017-01-04 13:45 | EKG ---
Date Performed: 01/03/2017 Time Performed: 18:58:13 PTAGE: 81 years EKG: ATRIAL FIBRILLATION MARKED RIGHT AXIS DEVIATION RIGHT BUNDLE BRANCH BLOCK MODERATE T-WAVE A BNORMALITY, CONSIDER LATERAL ISCHEMIA ABNORMAL ECG Compared to prior tracing no significant change PREVIOUS TRACING : 07/20/2016 03.54 DOCTOR: Sunday Forbes Interpretating Date/Time 01/04/2017 13:42:44
== END 2017-01-04 00:48 | disposition home or self-care (01) ==
LOC: NEPE 18:18
DX: N30.01 Acute cystitis with hematuria (principal); R94.31 Abnormal electrocardiogram [ECG] [EKG]; I10 Essential (primary) hypertension; J44.9 Chronic obstructive pulmonary disease, unspecified; I50.9 Heart failure, unspecified; E11.9 Type 2 diabetes mellitus without complications; I48.91 Unspecified atrial fibrillation; Z79.82 Long term (current) use of aspirin; I25.10 Atherosclerotic heart disease of native coronary artery without angina pectoris; Z95.5 Presence of coronary angioplasty implant and graft; Z79.84 Long term (current) use of oral hypoglycemic drugs
CPT/HCPCS: 71010; 80053; 81001; 85025; 85610; 85730; 87086; 93005; 99285

== ENCOUNTER 2017-03-09 10:47 | Emergency (ER) | payer MEDICAID, MEDICARE, OTHER ==
[~2017-03-09] VITALS: Ht 157.5 cm; Wt 114.0 kg
[~2017-03-09 10:47] MED LIST changes: -COMMODE 3-IN-11 MIS; +MACR100C2 PO; +NEUR300C PO
[2017-03-09 10:52] VITALS: BP 167/74; PULSE 71; RESP 18; TEMP 97.8; O2SAT 98
[2017-03-09] MEDS ORDERED: PLAV75TA29 PO (11:00)
[2017-03-09] MEDS ORDERED: SODIUM CHLORIDE 0.9% FLUSH 10 ML FLUSH IVF PRN (11:15)
[2017-03-09 11:17] VITALS: RESP 18; O2SAT 98
[2017-03-09 11:21] VITALS: BP_SYST 135; BP_SYST 153; BP_DIAS 68; BP_DIAS 69; PULSE 68; RESP 18; O2SAT 99
--- NOTE | 2017-03-09 11:24 | PD ---
HPI Chief Complaint: Pain: Acute or Chronic Time Seen by Provider: 11:05 Travel History International Travel<30 days: No Contact w/Intl Traveler<30days: No Traveled to known affect area: No History of Present Illness HPI Patient is an 81-year-old female presenting to emergency for evaluation of back pain. Patient states the pain started 2 months ago, it's intermittent occurring approximately once a week. When it does occur it radiates to her right upper chest wall and down her back. She states when it occurs it wakes her up and she equates it to labor pains. Patient reports taking Lortab which alleviates the pain, pain is worse with movement. She states the pain is a 7 out of 10 and describes it as cramping. Patient is wheelchair bound for the last 2 years and oxygen dependent on 2 L nasal cannula. She denies any nausea, vomiting, abdominal pain, chest pain, dizziness, increased shortness of breath. She does have COPD which again requires her to be on oxygen. She saw her primary doctor 2 weeks ago and did not mention it to her at that time despite the symptoms ongoing for 2 months. 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29) Cardiac Catheterization: Yes High Cholesterol: Yes Chemotherapy: Yes Chest Pain: Yes Congestive Heart Failure: Yes COPD: Yes Cerebrovascular Accident: Yes Coronary Artery Disease: Yes Diabetes: Yes Gastrointestinal Disorders: No GERD: Yes Glaucoma: No Genitourinary: Yes Headaches: No Hepatitis: No Hiatal Hernia: No Heparin Induced Thrombocytopen: No Hypertension: Yes Immune Disorder: No Kidney Stones: No Musculoskeletal: Yes (SPINAL STENOSIS) Parkinson's Disease: Yes Psychiatric: No Reproductive: No Migraines: No Myocardial Infarction: Yes Radiation Therapy: No Renal Failure: No Seizures: No Sickle Cell Disease: No Sleep Apnea: No Thyroid Disease: Yes Ulcer: No Tetanus Vaccination: > 5 Years Influenza Vaccination: Yes PNEUMOCCOCAL Vaccine (Year): 2007 Menopausal: Yes : 11 Para: 4 Miscarriage: 7 Past Surgical History AICD: No Appendectomy: Yes Arteriovenous Shunt: No Section: No Cholecystectomy: Yes Coronary Artery Bypass Graft: Yes Coronary Stent: Yes (11 STENTS) Ear Surgery: No Endocrine Surgery: No Eye Surgery: No Genitourinary Surgery: No Gynecologic Surgery: Yes (FIBROIDS REMOVED) Insulin Pump: No Joint Replacement: No Neurologic Surgery: Yes (TUMOR REMOVED FROM SPINE, TWO RIBS REMOVED) Oral Surgery: No Pacemaker: No Family History Family Myocardial Infarction: Yes Social History Alcohol Use: Yes (rare) Tobacco Use: No ("QUIT 50 YEARS AGO") Substance Use: No (PT DENIES) Allergies-Medications (Allergen,Severity, Reaction): Coded Allergies: diatrizoate meglumine (Verified Allergy, Severe, Anaphylaxis, 03/09/17) erythromycin base (Verified Allergy, Severe, RASH, 03/09/17) gadobenic acid (Verified Allergy, Severe, Anaphylaxis, 03/09/17) gadodiamide (Verified Allergy, Severe, Anaphylaxis, 03/09/17) gadoteridol (Verified Allergy, Severe, Anaphylaxis, 03/09/17) iodixanol (Verified Allergy, Severe, Anaphylaxis, 03/09/17) iohexol (Verified Allergy, Severe, Anaphylaxis, 03/09/17) ferrous fumarate (Verified Allergy, Intermediate, RASH, 03/09/17) ferrous sulfate (Verified Allergy, Intermediate, RASH, 03/09/17) ferumoxytol (Verified Allergy, Intermediate, RASH, 03/09/17) iron (Verified Allergy, Intermediate, RASH, 03/09/17) multivitamin infusion, adult no.4 with vitamin K (Verified Allergy, Intermediate, RASH, 03/09/17) multivitamin with iron,other minerals (Verified Allergy, Intermediate, RASH, 03/09/17) Reported Meds & Prescriptions Reported Meds & Active Scripts Active Reported Plavix (Clopidogrel Bisulfate) 75 Mg Tab 75 Mg PO DAILY Neurontin (Gabapentin) 300 Mg Cap 300 Mg PO TID Hydrocodone-Acetaminophen 7.5-325 mg Tab 1 Tab PO Q6H PRN Ranexa ER 12 HR (Ranolazine) 500 Mg Tab 500 Mg PO DAILY Protonix (Pantoprazole Sodium) 40 Mg Tab 40 Mg PO DAILY Nitroglycerin 5 Mg/Ml Inj 0.4 Mg SL PRN Metoprolol Tartrate 25 Mg Tab 25 Mg PO BID Losartan (Losartan Potassium) 100 Mg Tab 100 Mg PO DAILY Levothyroxine (Levothyroxine Sodium) 50 Mcg Tab 50 Mcg PO DAILY Isosorbide Mononitrate 20 Mg Tab 120 Mg PO BID Take 2 doses 7 hours apart. Glyburide 2.5 Mg Tab 2.5 Mg PO DAILY Take with meals at the same time each day Lexapro (Escitalopram Oxalate) 10 Mg Tab 10 Mg PO DAILY Carbidopa-Levodopa 10-100 Mg Tab 3 Tab PO BID Amlodipine (Amlodipine Besylate) 5 Mg Tab 5 Mg PO DAILY Aspirin 325 Mg Tab 325 Mg PO DAILY Alprazolam 0.25 Mg Tab 0.25 Mg PO HS PRN Review of Systems ROS Limitations: Unresponsive General / Constitutional: No: Fever, Chills HENT: No: Headaches, Lightheadedness Cardiovascular: No: Chest Pain or Discomfort, Diaphoresis, Edema Respiratory: Positive: Pleuritic Pain, No: Shortness of Breath Gastrointestinal: No: Nausea, Vomiting, Abdominal Pain Genitourinary: No: Dysuria Musculoskeletal: Positive: Myalgias, Pain (RIGHT UPPER BACK) Neurologic: No: Weakness, Dizziness, Syncope, Change in Mentation Physical Exam Narrative GENERAL: Obese, alert, elderly female. Resting comfortably in no acute distress. SKIN: Warm and dry. HEAD: Atraumatic. Normocephalic. EYES: Pupils equal and round. No scleral icterus. No injection or drainage. ENT: No nasal bleeding or discharge. Mucous membranes pink and moist. NECK: Trachea midline. No JVD. CARDIOVASCULAR: Regular rate and rhythm. RESPIRATORY: No accessory muscle use. Diminished in bases. GASTROINTESTINAL: Abdomen soft, non-tender, nondistended. Hepatic and splenic margins not palpable. Positive bowel sounds, no rebound, no guarding MUSCULOSKELETAL: Extremities without clubbing, cyanosis, or edema. No obvious deformities. TTP in right upper back. NEUROLOGICAL: Awake and alert. No obvious cranial nerve deficits. Motor grossly within normal limits. Five out of 5 muscle strength in the arms and legs. Normal speech. Tremor in upper extremities PSYCHIATRIC: Appropriate mood and affect; insight and judgment normal. Data Data Last Documented VS Vital Signs Date Time Temp Pulse Resp B/P (MAP) Pulse Ox O2 Delivery O2 Flow Rate FiO2 03/09/17 11:21 68 18 153/69 (97) 99 Nasal Cannula 2.00 135/68 (90) 03/09/17 10:52 97.8 Orders Orders Electrocardiogram (03/09/17 11:15) Ckmb (Isoenzyme) Profile (03/09/17 11:15) Complete Blood Count With Diff (03/09/17 11:15) Comprehensive Metabolic Panel (03/09/17 11:15) Magnesium (Mg) (03/09/17 11:15) Prothrombin Time / Inr (Pt) (03/09/17 11:15) Act Partial Throm Time (Ptt) (03/09/17 11:15) Troponin I (03/09/17 11:15) Lipase (03/09/17 11:15) Chest, Single Ap (03/09/17 11:15) Ecg Monitoring (03/09/17 11:15) Bilateral Bp Monitoring (03/09/17 11:15) Iv Access Insert/Monitor (03/09/17 11:15) Oximetry (03/09/17 11:15) Sodium Chloride 0.9% Flush (Ns Flush) (03/09/17 11:15) Labs Laboratory Tests Test 03/09/17 11:20 White Blood Count 5.8 TH/MM3 Red Blood Count 4.47 MIL/MM3 Hemoglobin 12.9 GM/DL Hematocrit 39.0 % Mean Corpuscular Volume 87.4 FL Mean Corpuscular Hemoglobin 29.0 PG Mean Corpuscular Hemoglobin Concent 33.2 % Red Cell Distribution Width 14.4 % Platelet Count 144 TH/MM3 Mean Platelet Volume 9.3 FL Neutrophils (%) (Auto) 65.8 % Lymphocytes (%) (Auto) 24.3 % Monocytes (%) (Auto) 7.5 % Eosinophils (%) (Auto) 2.0 % Basophils (%) (Auto) 0.4 % Neutrophils # (Auto) 3.8 TH/MM3 Lymphocytes # (Auto) 1.4 TH/MM3 Monocytes # (Auto) 0.4 TH/MM3 Eosinophils # (Auto) 0.1 TH/MM3 Basophils # (Auto) 0.0 TH/MM3 CBC Comment DIFF FINAL Differential Comment Prothrombin Time 11.3 SEC Prothromb Time International Ratio 1.0 RATIO Activated Partial Thromboplast Time 26.8 SEC Blood Urea Nitrogen 34 MG/DL Creatinine 1.53 MG/DL Random Glucose 169 MG/DL Total Protein 7.3 GM/DL Albumin 3.5 GM/DL Calcium Level 8.8 MG/DL Magnesium Level 2.1 MG/DL Alkaline Phosphatase 55 U/L Aspartate Amino Transf (AST/SGOT) 13 U/L Alanine Aminotransferase (ALT/SGPT) LESS THAN 6 U/L Total Bilirubin 0.6 MG/DL Sodium Level 140 MEQ/L Potassium Level 4.1 MEQ/L Chloride Level 106 MEQ/L Carbon Dioxide Level 26.4 MEQ/L Anion Gap 8 MEQ/L Estimat Glomerular Filtration Rate 33 ML/MIN Total Creatine Kinase 32 U/L Troponin I LESS THAN 0.02 NG/ML Lipase 196 U/L MDM Medical Decision Making Medical Screen Exam Complete: Yes Emergency Medical Condition: Yes Medical Record Reviewed: Yes Interpretation(s) Last Impressions Chest X-Ray 03/09/17 1115 Signed Impressions: Service Date/Time: Saturday, March 09, 2017 11:20 - CONCLUSION: No acute cardiopulmonary abnormality is identified. Mundo Abel MD Laboratory Tests Test 03/09/17 11:20 White Blood Count 5.8 TH/MM3 Red Blood Count 4.47 MIL/MM3 Hemoglobin 12.9 GM/DL Hematocrit 39.0 % Mean Corpuscular Volume 87.4 FL Mean Corpuscular Hemoglobin 29.0 PG Mean Corpuscular Hemoglobin Concent 33.2 % Red Cell Distribution Width 14.4 % Platelet Count 144 TH/MM3 Mean Platelet Volume 9.3 FL Neutrophils (%) (Auto) 65.8 % Lymphocytes (%) (Auto) 24.3 % Monocytes (%) (Auto) 7.5 % Eosinophils (%) (Auto) 2.0 % Basophils (%) (Auto) 0.4 % Neutrophils # (Auto) 3.8 TH/MM3 Lymphocytes # (Auto) 1.4 TH/MM3 Monocytes # (Auto) 0.4 TH/MM3 Eosinophils # (Auto) 0.1 TH/MM3 Basophils # (Auto) 0.0 TH/MM3 CBC Comment DIFF FINAL Differential Comment Prothrombin Time 11.3 SEC Prothromb Time International Ratio 1.0 RATIO Activated Partial Thromboplast Time 26.8 SEC Blood Urea Nitrogen 34 MG/DL Creatinine 1.53 MG/DL Random Glucose 169 MG/DL Total Protein 7.3 GM/DL Albumin 3.5 GM/DL Calcium Level 8.8 MG/DL Magnesium Level 2.1 MG/DL Alkaline Phosphatase 55 U/L Aspartate Amino Transf (AST/SGOT) 13 U/L Alanine Aminotransferase (ALT/SGPT) LESS THAN 6 U/L Total Bilirubin 0.6 MG/DL Sodium Level 140 MEQ/L Potassium Level 4.1 MEQ/L Chloride Level 106 MEQ/L Carbon Dioxide Level 26.4 MEQ/L Anion Gap 8 MEQ/L Estimat Glomerular Filtration Rate 33 ML/MIN Total Creatine Kinase 32 U/L Troponin I LESS THAN 0.02 NG/ML Lipase 196 U/L Vital Signs Date Time Temp Pulse Resp B/P (MAP) Pulse Ox O2 Delivery O2 Flow Rate FiO2 03/09/17 10:55 79 17 03/09/17 10:52 97.8 71 18 167/74 (105) 98 Differential Diagnosis Radiculopathy versus muscle strain versus muscle spasm versus ACS versus unstable angina versus other Narrative Course Patient is an 81-year-old female presenting with 2 months of right upper back pain that radiates to her chest and down her back. Pain in right upper back is reproducible on palpation. Patient's vital signs are stable, IV access established, patient placed on telemetry monitoring continuous pulse oximetry. She is on 2 L of O2 via nasal cannula this is her baseline. Labs and imaging ordered and pending. CBC, chemistry, coags reviewed, no acute abnormalities identified EKG reviewed by my attending physician. Cardiac enzymes are negative 1 set Chest x-ray shows no acute disease. Discussed findings and plan with my attending physician. Due to the chronic nature of patient's pain and the negative cardiac workup. Patient will be discharged home. Pain is most consistent with musculoskeletal pain. She is encouraged to follow-up with her primary doctor next week as scheduled. She is encouraged to continue taking the previously prescribed Lortab as needed for pain. Additionally patient was encouraged to apply warm moist heat to the affected area and continue range of motion exercises in her upper extremities. She was encouraged to return to emergency department for any new or worsening symptoms. Patient verbalized understanding of instructions. Patient is stable for discharge. Diagnosis Primary Impression: Back pain Qualified Codes: M54.6 - Pain in thoracic spine Referrals: Primary Care Physician 1 week As scheduled Patient Instructions: Back Pain (ED), General Instructions, Muscle Cramp (ED), Muscle Spasm (ED) Additional Instructions: Follow-up with your primary doctor as scheduled Continue home medications as previously prescribed You may apply topical analgesics such as BenGay or bio freeze to the affected area as directed and as needed Apply warm moist heat to the effected area, continue range of motion exercises and upper extremities. Return to emergency department for any new or worsening symptoms Med/Other Pt SpecificInfo: No Change to Meds Disposition: 01 DISCHARGE HOME Condition: Stable Swati Snowden Mar 09, 2017 11:24
[2017-03-09 11:32] LABS: AUTOMATED NEUTROPHIL # 3.8 TH/MM3 (1.8-7.7); BASOPHIL % 0.4 % (0.0-2.0); EOSINOPHIL # 0.1 TH/MM3 (0-0.4); HEMO FLAGS DIFF FINAL; LYMPH % 24.3 % (9.0-44.0); LYMPHOCYTE # 1.4 TH/MM3 (1.0-4.8); MEAN CELL VOLUME 87.4 FL (80.0-100.0); MEAN CORPUSCULAR HGB CONC 33.2 % (32.0-36.0); MONO % 7.5 % (0.0-8.0); NEUT % 65.8 % (16.0-70.0); PLATELET COUNT 144 TH/MM3 (150-450); RED BLOOD COUNT 4.47 MIL/MM3 (4.00-5.30); RED CELL DISTRIBUTION WIDTH 14.4 % (11.6-17.2); WHITE BLOOD COUNT 5.8 TH/MM3 (4.0-11.0)
--- NOTE | 2017-03-09 11:39 | RADRPT ---
EXAM DATE/TIME: 03/09/2017 11:20 [facility] COMPARISON: CHEST SINGLE AP, January 03, 2017, 19:46. INDICATIONS : Chest pain. MEDICAL HISTORY : Hypertension. Diabetes mellitus type II. Cardiovascular disease. SURGICAL HISTORY : CABG. ENCOUNTER: Initial ACUITY: 1 day PAIN SCORE: 3/10 LOCATION: Right upper chest FINDINGS: Portable AP view of the chest demonstrates mildly enlarged cardiac silhouette stable from the prior s tudy. Patient is post median sternotomy and CABG. No effusion, consolidation, or pneumothorax is pres ent. Stable calcified granuloma in the left lower lung zone. Bones and soft tissues demonstrate no ac trevor finding. CONCLUSION: No acute cardiopulmonary abnormality is identified. Mundo Abel MD on March 09, 2017 at 11:34 Board Certified Radiologist. This report was verified electronically.
[2017-03-09 11:42] LABS: APTT (PATIENT) 26.8 SEC (24.3-30.1); PROTHROMBIN TIME - PATIENT 11.3 SEC (9.8-11.6)
[2017-03-09 11:49] LABS: ANION GAP 8 MEQ/L (5-15); AST (GOT) 13 U/L (15-37); BICARBONATE 26.4 MEQ/L (21.0-32.0); BLOOD UREA NITROGEN 34 MG/DL (7-18); CHLORIDE 106 MEQ/L (98-107); GLOMERULAR FILTRATION RATE 33 ML/MIN (>89); MAGNESIUM 2.1 MG/DL (1.5-2.5); POTASSIUM 4.1 MEQ/L (3.5-5.1); SODIUM (NA) 140 MEQ/L (136-145)
[2017-03-09 11:55] LABS: ALKALINE PHOSPHATASE 55 U/L (45-117); ALT (GPT) LESS THAN 6 U/L (10-53); TOTAL BILIRUBIN ADULT 0.6 MG/DL (0.2-1.0)
[2017-03-09 12:14] LABS: CREATINE KINASE 32 U/L (26-192)
[2017-03-09 18:10] VITALS: BP 144/78; TEMP 97.7
--- NOTE | 2017-03-10 09:50 | EKG ---
Date Performed: 03/09/2017 Time Performed: 10:56:53 PTAGE: 81 years EKG: Likely Sinus rhythm ; although, there is some baseline artifact and T-waves are fairly subtle INDETERMINATE AXIS RIGHT BU NDLE BRANCH BLOCK ABNORMAL ECG PREVIOUS TRACING : 01/03/2017 18.58 Since prior tracing, likely sinus rhythm has replaced the a trial fibrillation. DOCTOR: Amado Horta Interpretating Date/Time 03/10/2017 09:48:43
== END 2017-03-09 18:10 | disposition home or self-care (01) ==
LOC: NEPC 10:47
DX: M54.6 Pain in thoracic spine (principal); R07.9 Chest pain, unspecified; M79.1 Myalgia; I45.10 Unspecified right bundle-branch block; R94.31 Abnormal electrocardiogram [ECG] [EKG]; I48.91 Unspecified atrial fibrillation; I11.0 Hypertensive heart disease with heart failure; I50.9 Heart failure, unspecified; G20 Parkinson's disease
CPT/HCPCS: 71010; 80053; 82550; 83690; 83735; 84484; 85025; 85610; 85730; 93005; 99285

== ENCOUNTER 2017-03-11 10:37 | Emergency (ER) | payer MEDICARE ==
[~2017-03-11 10:37] MED LIST changes: -LACTCAP8 PO; -MACR100C2 PO; +PLAV75TA29 PO
[2017-03-11 10:39] VITALS: BP 113/55; PULSE 72; RESP 20; TEMP 98.1; O2SAT 94
[2017-03-11] MEDS: RESP: ALBUTEROL 2.5 MG/IPRATROPIUM 0.5 MG NEB (SCH) INH (11:00)
[2017-03-11] MEDS ORDERED: SODIUM CHLORIDE 0.9% FLUSH 10 ML FLUSH IVF PRN (11:00)
[2017-03-11 11:07] VITALS: O2SAT 95
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
[2017-03-11 11:11] LABS: BLOOD GAS BASE EXCESS 2.9 mmol/L (-2-2); BLOOD GAS CARBOXYHEMOGLOBIN 1.8 % (0-4); BLOOD GAS HCO3 27 mmol/L (22-26); BLOOD GAS O2 HGB SATURATION 92 % (90-100); BLOOD GAS OXYGEN CONTENT 16.8 Vol % (12.0-20.0); BLOOD GAS PCO2 44 mmHG (38-42); BLOOD GAS PO2 70 mmHG (61-120); CRITICAL VALUE NO; DRAW SITE LT RADIAL; FIO2 21 %; NUMBER OF ARTERIAL PUNCTURES 1; STAT YES; TEMP CORR TO 98.6; ULNAR PULSE PRESENT
--- NOTE | 2017-03-11 11:19 | RADRPT ---
EXAM DATE/TIME: 03/11/2017 11:09 [facility] COMPARISON: CHEST SINGLE AP, March 09, 2017, 11:20. INDICATIONS : Short of breath & chest pressure. MEDICAL HISTORY : Stroke. Hypercholesterolemia. Hypertension. Thyroid disease. Parkinson's disease. head trauma. tremor s. myocardial infarction. congestive heart failure. coronary artery disease. copd. asthma. tuberculos is. gerd. decreased renal function. spinal stenosis. chronic uti. arthritis. diabetes. sarcoma, chest . chemotherapy. SURGICAL HISTORY : CABG Appendectomy. Cholecystectomy. Tumor removed form spine. 2Ribs removed. Vein stripping for bypas s graft. 11 coronary stents. Abdominal srurgery for ruptured stomach. Fibroids removed. Bilateral joaquin ast surgery. Spine surgery. ENCOUNTER: Initial ACUITY: 1 day PAIN SCORE: 5/10 LOCATION: chest FINDINGS: Median sternotomy wires with post surgical changes of prior cardiac surgery. Rectal exam enlarged. Mi ld diffuse interstitial prominence. No significant focal pleural or parenchymal opacities. Remainder of the exam is unchanged. CONCLUSION: 1. No acute abnormality or significant interval change. Titi Gillis MD on March 11, 2017 at 11:16 Board Certified Radiologist. This report was verified electronically.
[2017-03-11 11:22] LABS: AUTOMATED NEUTROPHIL # 3.5 TH/MM3 (1.8-7.7); BASOPHIL % 0.5 % (0.0-2.0); EOSINOPHIL # 0.2 TH/MM3 (0-0.4); EOSINOPHIL % 3.3 % (0.0-4.0); HEMATOCRIT 38.6 % (35.0-46.0); HEMO FLAGS DIFF FINAL; LYMPH % 19.5 % (9.0-44.0); MEAN CELL VOLUME 86.3 FL (80.0-100.0); MEAN CORPUSCULAR HEMOGLOBIN 29.1 PG (27.0-34.0); MEAN CORPUSCULAR HGB CONC 33.7 % (32.0-36.0); MONO % 8.8 % (0.0-8.0); NEUT % 67.9 % (16.0-70.0); PLATELET COUNT 138 TH/MM3 (150-450); RED BLOOD COUNT 4.47 MIL/MM3 (4.00-5.30); WHITE BLOOD COUNT 5.2 TH/MM3 (4.0-11.0)
[2017-03-11 11:25] LABS: CHLORIDE 105 MEQ/L (98-107); POTASSIUM 4.3 MEQ/L (3.5-5.1); SODIUM (NA) 140 MEQ/L (136-145)
[2017-03-11 11:29] LABS: ANION GAP 8 MEQ/L (5-15); BLOOD UREA NITROGEN 27 MG/DL (7-18); MAGNESIUM 2.4 MG/DL (1.5-2.5)
[2017-03-11 11:32] LABS: ALT (GPT) 15 U/L (10-53); AST (GOT) 20 U/L (15-37); GLOMERULAR FILTRATION RATE 43 ML/MIN (>89)
[2017-03-11 11:34] LABS: TOTAL BILIRUBIN ADULT 0.7 MG/DL (0.2-1.0)
[2017-03-11 11:35] LABS: ALKALINE PHOSPHATASE 64 U/L (45-117); CREATINE KINASE 200 U/L (26-192)
[2017-03-11 11:48] LABS: CKMB 0.8 NG/ML (0.5-3.6)
[2017-03-11] MEDS ORDERED: ACETAMINOPHEN/HYDROcodone 325 MG/5 MG TAB PO ONE (12:15)
[2017-03-11] MEDS ORDERED: CARBIDOPA/LEVODOPA 10 MG/100 MG TAB PO ONE (12:15)
[2017-03-11] MEDS ORDERED: ALBUTEROL SULFATE 90 MCG/ACT HFA 8 GM INHALER INH ONE (12:30)
[2017-03-11 13:47] VITALS: BP 189/83; PULSE 82; RESP 18; O2SAT 96
[2017-03-11 14:00] VITALS: BP 199/83; PULSE 78; RESP 16
[2017-03-11 14:57] VITALS: BP 186/74; PULSE 78; RESP 16; O2SAT 97
--- NOTE | 2017-03-12 13:18 | EKG ---
Date Performed: 03/11/2017 Time Performed: 13:21:13 PTAGE: 81 years EKG: Sinus rhythm with low amplitude P-wave INDETERMINATE AXIS RIGHT BUNDLE BRANCH BLOCK LEFT ANTERIOR FASCICULAR BLOC K MODERATE T-WAVE ABNORMALITY, CONSIDER ANTEROLATERAL ISCHEMIA ABNORMAL ECG PREVIOUS TRACING : 03/09/2017 10.56 Since the prior tracing, there has been no significant seri al change. DOCTOR: Rin Fletcher Interpretating Date/Time 03/12/2017 13:16:18
== END 2017-03-11 15:31 | disposition home or self-care (01) ==
LOC: PHED 10:37
DX: R06.00 Dyspnea, unspecified (principal); G89.29 Other chronic pain; E07.9 Disorder of thyroid, unspecified; E11.9 Type 2 diabetes mellitus without complications; G20 Parkinson's disease; I11.0 Hypertensive heart disease with heart failure; I25.10 Atherosclerotic heart disease of native coronary artery without angina pectoris; I25.2 Old myocardial infarction; I48.91 Unspecified atrial fibrillation; I50.9 Heart failure, unspecified; J44.9 Chronic obstructive pulmonary disease, unspecified; Z86.73 Personal history of transient ischemic attack (TIA), and cerebral infarction without residual deficits; Z90.49 Acquired absence of other specified parts of digestive tract; Z95.5 Presence of coronary angioplasty implant and graft; Z95.1 Presence of aortocoronary bypass graft
CPT/HCPCS: 36600; 71010; 80053; 82550; 82552; 82805; 83735; 83880; 84484; 85025; 93005; 94640; 94664; 99285

== ENCOUNTER 2017-04-07 11:25 | Emergency (ER) | payer MEDICARE ==
[~2017-04-07] VITALS: Ht 165.1 cm; Wt 110.0 kg
[2017-04-07 11:35] VITALS: BP 191/86; PULSE 81; RESP 22; TEMP 98.7; O2SAT 97
[2017-04-07] MEDS ORDERED: SODIUM CHLORIDE 0.9% FLUSH 10 ML FLUSH IVF PRN (11:45)
--- NOTE | 2017-04-07 11:47 | PD ---
HPI Chief Complaint: Respiratory Distress Time Seen by Provider: 11:35 Travel History International Travel<30 days: No Contact w/Intl Traveler<30days: No Traveled to known affect area: No History of Present Illness HPI This is an 81-year-old female with history of Parkinson's, diabetes, coronary artery disease, COPD, CHF, atrial fibrillation, presents via EMS for evaluation. She reports increased dyspnea for 1 year. She has been evaluated for this several times in the past. She reports that today she got up and felt some generalized weakness and she also feels that her chronic dyspnea was somewhat worse and this opted her to come here for evaluation. She did use her at-home albuterol nebulizer prior to arrival. She endorses increased urinary frequency and is concerned that she may have a urinary tract infection. She also reports a chronic cough with clear sputum production. She denies any chest pain, fevers or chills, abdominal pain, nausea or vomiting, dysuria, flank pain. She has no other complaints at this time. 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29) Cardiac Catheterization: Yes Cardiovascular Problems: Yes High Cholesterol: Yes Chemotherapy: Yes Chest Pain: Yes Congestive Heart Failure: Yes COPD: Yes Cerebrovascular Accident: Yes Coronary Artery Disease: Yes Diabetes: Yes Patient Takes Glucophage: No Diminished Hearing: No Endocrine: Yes Gastrointestinal Disorders: No GERD: Yes Glaucoma: No Genitourinary: Yes Headaches: No Hepatitis: No Hiatal Hernia: No Heparin Induced Thrombocytopen: No Hypertension: Yes Immune Disorder: No Implanted Vascular Access Dvce: Yes Kidney Stones: No Musculoskeletal: Yes (SPINAL STENOSIS) Neurologic: Yes (PARKINSONS ) Parkinson's Disease: Yes Psychiatric: No Reproductive: No Respiratory: Yes (copd) Migraines: No Myocardial Infarction: Yes Radiation Therapy: No Renal Failure: No Seizures: No Sickle Cell Disease: No Sleep Apnea: No Thyroid Disease: Yes Ulcer: No PNEUMOCCOCAL Vaccine (Year): 2007 ?: Not Menopausal: Yes : 11 Para: 4 Miscarriage: 7 Past Surgical History AICD: No Appendectomy: Yes Arteriovenous Shunt: No Body Medical Devices: cardiac stents x 11. Cardiac Surgery: Yes (QUADRUPLE BYPASS X2) Section: No Cholecystectomy: Yes Coronary Artery Bypass Graft: Yes Coronary Stent: Yes (11 STENTS) Ear Surgery: No Endocrine Surgery: No Eye Surgery: No Genitourinary Surgery: No Gynecologic Surgery: Yes (FIBROIDS REMOVED) Insulin Pump: No Joint Replacement: No Neurologic Surgery: Yes (TUMOR REMOVED FROM SPINE, TWO RIBS REMOVED) Oral Surgery: No Pacemaker: No Thoracic Surgery: Yes (QUAD BYPASS x2 (2006, 2009), ribs removed) Other Surgery: Yes (SARCOMA BILATERAL BREASTS,SPINE AND RIBS,UTERINE FIBROIDS) Family History Family Myocardial Infarction: Yes Social History Alcohol Use: Yes (rare) Tobacco Use: No ("QUIT 50 YEARS AGO") Substance Use: No (PT DENIES) Allergies-Medications (Allergen,Severity, Reaction): Coded Allergies: diatrizoate meglumine (Verified Allergy, Severe, Anaphylaxis, 03/11/17) erythromycin base (Verified Allergy, Severe, RASH, 03/11/17) gadobenic acid (Verified Allergy, Severe, Anaphylaxis, 03/11/17) gadodiamide (Verified Allergy, Severe, Anaphylaxis, 03/11/17) gadoteridol (Verified Allergy, Severe, Anaphylaxis, 03/11/17) iodixanol (Verified Allergy, Severe, Anaphylaxis, 03/11/17) iohexol (Verified Allergy, Severe, Anaphylaxis, 03/11/17) ferrous fumarate (Verified Allergy, Intermediate, RASH, 03/11/17) ferrous sulfate (Verified Allergy, Intermediate, RASH, 03/11/17) ferumoxytol (Verified Allergy, Intermediate, RASH, 03/11/17) iron (Verified Allergy, Intermediate, RASH, 03/11/17) multivitamin infusion, adult no.4 with vitamin K (Verified Allergy, Intermediate, RASH, 03/11/17) multivitamin with iron,other minerals (Verified Allergy, Intermediate, RASH, 03/11/17) Reported Meds & Prescriptions Reported Meds & Active Scripts Active Macrobid (Nitrofurantoin Monohydrate Macrocrystals) 100 Mg Capsule 100 Mg PO BID 7 Days Reported Plavix (Clopidogrel Bisulfate) 75 Mg Tab 75 Mg PO DAILY Neurontin (Gabapentin) 300 Mg Cap 300 Mg PO TID Hydrocodone-Acetaminophen 7.5-325 mg Tab 1 Tab PO Q6H PRN Ranexa ER 12 HR (Ranolazine) 500 Mg Tab 500 Mg PO DAILY Protonix (Pantoprazole Sodium) 40 Mg Tab 40 Mg PO DAILY Nitroglycerin 5 Mg/Ml Inj 0.4 Mg SL PRN Metoprolol Tartrate 25 Mg Tab 25 Mg PO BID Losartan (Losartan Potassium) 100 Mg Tab 100 Mg PO DAILY Levothyroxine (Levothyroxine Sodium) 50 Mcg Tab 50 Mcg PO DAILY Isosorbide Mononitrate 20 Mg Tab 120 Mg PO BID Take 2 doses 7 hours apart. Glyburide 2.5 Mg Tab 2.5 Mg PO DAILY Take with meals at the same time each day Lexapro (Escitalopram Oxalate) 10 Mg Tab 10 Mg PO DAILY Carbidopa-Levodopa 10-100 Mg Tab 3 Tab PO BID Amlodipine (Amlodipine Besylate) 5 Mg Tab 5 Mg PO DAILY Aspirin 325 Mg Tab 325 Mg PO DAILY Alprazolam 0.25 Mg Tab 0.25 Mg PO HS PRN Review of Systems Except as stated in HPI: all other systems reviewed are Neg Physical Exam Narrative GENERAL: Well-developed well-nourished female in no acute distress, conversing normally on room air pulse oximetry 97%. SKIN: Warm and dry. There are some excoriated skin lesions noted on the right leg and right arm. HEAD: Atraumatic. Normocephalic. EYES: Pupils equal and round. No scleral icterus. No injection or drainage. ENT: No nasal bleeding or discharge. Mucous membranes pink and moist. NECK: Trachea midline. No JVD. CARDIOVASCULAR: Regular rate and rhythm. No murmur appreciated. RESPIRATORY: No accessory muscle use. Clear to auscultation. Breath sounds equal bilaterally. No crackles no wheezing or rhonchi GASTROINTESTINAL: Abdomen soft, non-tender, nondistended. Hepatic and splenic margins not palpable. MUSCULOSKELETAL: No obvious deformities. No clubbing. No cyanosis. No edema. NEUROLOGICAL: Awake and alert. No obvious cranial nerve deficits. Motor grossly within normal limits. Normal speech. PSYCHIATRIC: Appropriate mood and affect; insight and judgment normal. Data Data Last Documented VS Vital Signs Date Time Temp Pulse Resp B/P (MAP) Pulse Ox O2 Delivery O2 Flow Rate FiO2 04/07/17 11:43 97 Room Air 04/07/17 11:35 98.7 81 22 191/86 (121) Orders Orders Complete Blood Count With Diff (04/07/17 11:42) Comprehensive Metabolic Panel (04/07/17 11:42) B-Type Natriuretic Peptide (04/07/17 11:42) Magnesium (Mg) (04/07/17 11:42) Ckmb (Isoenzyme) Profile (04/07/17 11:42) Troponin I (04/07/17 11:42) Urinalysis - C+S If Indicated (04/07/17 11:42) Iv Access Insert/Monitor (04/07/17 11:42) Electrocardiogram (04/07/17 11:42) Ecg Monitoring (04/07/17 11:42) Oximetry (04/07/17 11:42) Oxygen Administration (04/07/17 11:42) Chest, Single Ap (04/07/17 11:42) Sodium Chloride 0.9% Flush (Ns Flush) (04/07/17 11:45) Acetaminophen (Tylenol) (04/07/17 12:30) CKMB (04/07/17 11:45) CKMB% (04/07/17 11:45) Urine Culture (04/07/17 12:55) Nitrofurantoin Monohyd Macrocr (Macrobid (04/07/17 13:30) Tramadol (Ultram) (04/07/17 13:30) Labs Laboratory Tests Test 04/07/17 11:45 04/07/17 12:55 White Blood Count 6.3 TH/MM3 Red Blood Count 4.39 MIL/MM3 Hemoglobin 12.7 GM/DL Hematocrit 38.1 % Mean Corpuscular Volume 86.7 FL Mean Corpuscular Hemoglobin 28.9 PG Mean Corpuscular Hemoglobin Concent 33.4 % Red Cell Distribution Width 14.7 % Platelet Count 134 TH/MM3 Mean Platelet Volume 8.8 FL Neutrophils (%) (Auto) 74.7 % Lymphocytes (%) (Auto) 16.6 % Monocytes (%) (Auto) 5.7 % Eosinophils (%) (Auto) 1.8 % Basophils (%) (Auto) 1.2 % Neutrophils # (Auto) 4.7 TH/MM3 Lymphocytes # (Auto) 1.0 TH/MM3 Monocytes # (Auto) 0.4 TH/MM3 Eosinophils # (Auto) 0.1 TH/MM3 Basophils # (Auto) 0.1 TH/MM3 CBC Comment DIFF FINAL Differential Comment Blood Urea Nitrogen 20 MG/DL Creatinine 1.38 MG/DL Random Glucose 187 MG/DL Total Protein 7.5 GM/DL Albumin 3.5 GM/DL Calcium Level 9.1 MG/DL Magnesium Level 2.1 MG/DL Alkaline Phosphatase 57 U/L Aspartate Amino Transf (AST/SGOT) 45 U/L Alanine Aminotransferase (ALT/SGPT) 7 U/L Total Bilirubin 0.7 MG/DL Sodium Level 138 MEQ/L Potassium Level 5.3 MEQ/L Chloride Level 105 MEQ/L Carbon Dioxide Level 27.2 MEQ/L Anion Gap 6 MEQ/L Estimat Glomerular Filtration Rate 37 ML/MIN Total Creatine Kinase 115 U/L Creatine Kinase MB 0.5 NG/ML Troponin I LESS THAN 0.02 NG/ML B-Type Natriuretic Peptide 112 PG/ML Urine Color YELLOW Urine Turbidity HAZY Urine pH 5.5 Urine Specific [place] 1.026 Urine Protein TRACE mg/dL Urine Glucose (UA) NEG mg/dL Urine Ketones TRACE mg/dL Urine Occult Blood NEG Urine Nitrite NEG Urine Bilirubin NEG Urine Urobilinogen 2.0 MG/DL Urine Leukocyte Esterase TRACE Urine RBC LESS THAN 1 /hpf Urine WBC 6 /hpf Urine WBC Clumps RARE Urine Squamous Epithelial Cells 4 /hpf Urine Bacteria MOD /hpf Urine Mucus FEW /lpf Microscopic Urinalysis Comment CULTURE INDICATED MDM Medical Decision Making Medical Screen Exam Complete: Yes Emergency Medical Condition: Yes Medical Record Reviewed: Yes Differential Diagnosis COPD, CHF, CHF exacerbation, COPD exacerbation, acute coronary syndrome, pneumonia, pneumothorax, pulmonary embolism, UTI Narrative Course The patient was placed on ECG monitoring pulse oximetry. A 12-lead EKG will be obtained. Plan is for basic lab work, chest x-ray. Labwork is been reviewed and found to be reassuring. EKG reveals atrial fibrillation with a rate of 72, her EKG appears consistent with previous on record. Her potassium is 5.3 but this is moderately hemolyzed and this is likely a spurious result. Her GFR is 37 which is consistent with her baseline. BNP is mildly elevated at 112. Cardiac enzymes are negative. Urine was cloudy and foul-smelling. She has wbc's and wbc clumps with moderate bacteria, culture pending. Therefore the patient will be started on Macrobid for her UTI. She is stable for discharge and outpatient follow-up. Diagnosis Primary Impression: UTI (urinary tract infection) Qualified Codes: N39.0 - Urinary tract infection, site not specified Additional Impression: Dyspnea Qualified Codes: R06.00 - Dyspnea, unspecified Additional Instructions: Medication as prescribed. Follow up close with primary care physician. Stay well hydrated. Return for any emergent medical conditions. Med/Other Pt SpecificInfo: Prescription(s) given Scripts Nitrofurantoin Monohydrate Macrocrystals (Macrobid) 100 Mg Capsule 100 MG PO BID for Infection for 7 Days, #14 CAP 0 Refills Prov: Josh Dinero MD 04/07/17 Disposition: 01 DISCHARGE HOME Condition: Stable Zia Garvey Apr 07, 2017 11:47
[2017-04-07 11:55] LABS: AUTOMATED NEUTROPHIL # 4.7 TH/MM3 (1.8-7.7); BASOPHIL # 0.1 TH/MM3 (0-0.2); BASOPHIL % 1.2 % (0.0-2.0); EOSINOPHIL # 0.1 TH/MM3 (0-0.4); EOSINOPHIL % 1.8 % (0.0-4.0); HEMATOCRIT 38.1 % (35.0-46.0); HEMO FLAGS DIFF FINAL; LYMPH % 16.6 % (9.0-44.0); MEAN CELL VOLUME 86.7 FL (80.0-100.0); MEAN CORPUSCULAR HEMOGLOBIN 28.9 PG (27.0-34.0); MEAN CORPUSCULAR HGB CONC 33.4 % (32.0-36.0); MONO % 5.7 % (0.0-8.0); NEUT % 74.7 % (16.0-70.0); PLATELET COUNT 134 TH/MM3 (150-450); RED BLOOD COUNT 4.39 MIL/MM3 (4.00-5.30); RED CELL DISTRIBUTION WIDTH 14.7 % (11.6-17.2); WHITE BLOOD COUNT 6.3 TH/MM3 (4.0-11.0)
--- NOTE | 2017-04-07 12:11 | RADRPT ---
EXAM DATE/TIME: 04/07/2017 11:48 [facility] COMPARISON: CHEST SINGLE AP, March 11, 2017, 11:09. INDICATIONS : Shortness of breath and general weakness. MEDICAL HISTORY : Chronic obstructive pulmonary disease. Congestive heart failure. Myocardial infarction. Stroke. SURGICAL HISTORY : CABG. Cardiac stents. ENCOUNTER: Initial ACUITY: 1 day PAIN SCORE: 0/10 LOCATION: Bilateral chest FINDINGS: There is advanced cardiomegaly. The patient is post median sternotomy. The lungs demonstrate chronic interstitial changes but are otherwise clear. The examination is stable compared to a previous dated 03/11/17. CONCLUSION: 1. Advanced cardiomegaly. 2. No acute cardiopulmonary findings. Walter Sarabia MD on April 07, 2017 at 12:08 Board Certified Radiologist. This report was verified electronically.
[2017-04-07] MEDS ORDERED: ACETAMINOPHEN 325 MG TAB PO ONE (12:30)
[2017-04-07 12:49] LABS: ALKALINE PHOSPHATASE 57 U/L (45-117); ALT (GPT) 7 U/L (10-53); ANION GAP 6 MEQ/L (5-15); AST (GOT) 45 U/L (15-37); BICARBONATE 27.2 MEQ/L (21.0-32.0); BLOOD UREA NITROGEN 20 MG/DL (7-18); CHLORIDE 105 MEQ/L (98-107); GLOMERULAR FILTRATION RATE 37 ML/MIN (>89); MAGNESIUM 2.1 MG/DL (1.5-2.5); SODIUM (NA) 138 MEQ/L (136-145); TOTAL BILIRUBIN ADULT 0.7 MG/DL (0.2-1.0)
[2017-04-07 12:50] LABS: CREATINE KINASE 115 U/L (26-192); POTASSIUM 5.3 MEQ/L (3.5-5.1)
--- NOTE | 2017-04-07 13:04 | EKG ---
Date Performed: 04/07/2017 Time Performed: 11:50:15 PTAGE: 81 years EKG: ATRIAL FIBRILLATION INDETERMINATE AXIS RIGHT BUNDLE BRANCH BLOCK MODERATE T-WAVE ABNORMALIT Y, CONSIDER LATERAL ISCHEMIA MODERATE T-WAVE ABNORMALITY, CONSIDER INFERIOR ISCHEMIA ABNORMAL ECG PREVIOUS TRACING : 03/11/2017 13.21 DOCTOR: Mateo Mata Interpretating Date/Time 04/07/2017 12:59:48
[2017-04-07 13:17] LABS: BACTERIA, URINE MOD /hpf; BLOOD, URINE NEG (NEG); COMMENT (UR) CULTURE INDICATED; CULTURE IF INDICATED CULTURE INDICATED; GLUCOSE,URINE NEG (NEG); KETONE, URINE TRACE mg/dL (NEG); MUCUS URINE FEW /lpf (OCC); NITRITE,URINE NEG (NEG); PH, URINE 5.5 (5.0-8.5); SQUAMOUS EPITHELIAL CELL URINE 4 /hpf (0-5); URINE COLOR YELLOW (YELLW/STRAW)
[2017-04-07] MEDS ORDERED: MACR100C2 PO (13:22)
[2017-04-07 13:27] LABS: CKMB 0.5 NG/ML (0.5-3.6)
[2017-04-07] MEDS ORDERED: NITROFURANTOIN MONOHYD MACROCR 100 MG CAP PO ONE (13:30)
[2017-04-07] MEDS ORDERED: traMADol HCL 50 MG TAB PO ONE (13:30)
[2017-04-07 14:49] VITALS: O2SAT 97
== END 2017-04-07 16:54 | disposition home or self-care (01) ==
LOC: NEPC 11:25
DX: N39.0 Urinary tract infection, site not specified (principal); R06.00 Dyspnea, unspecified; R94.31 Abnormal electrocardiogram [ECG] [EKG]; E11.9 Type 2 diabetes mellitus without complications; J44.9 Chronic obstructive pulmonary disease, unspecified; I48.91 Unspecified atrial fibrillation; G20 Parkinson's disease; I11.0 Hypertensive heart disease with heart failure; Z79.01 Long term (current) use of anticoagulants
CPT/HCPCS: 71010; 80053; 81001; 82550; 82552; 83735; 83880; 84484; 85025; 87086; 93005

== ENCOUNTER 2017-06-02 12:51 | Emergency (ER) | payer MEDICARE, OTHER ==
[~2017-06-02 12:51] MED LIST changes: +ASPI-183 PO; -ASPI325T PO; +MACR100C2 PO
[2017-06-02 13:10] VITALS: BP 201/119; PULSE 82; RESP 18; TEMP 98; O2SAT 98
--- NOTE | 2017-06-02 13:24 | PD ---
HPI Chief Complaint: Flank/Kidney Pain Time Seen by Provider: 13:10 Travel History International Travel<30 days: No Contact w/Intl Traveler<30days: No Traveled to known affect area: No History of Present Illness HPI 82-year-old female came to the emergency room with history of abdominal pain, back pain, feeling anxious for past 4 days. She also says that she's been vomiting. She had seen her primary care 2 days ago and was given medication. Patient says she takes it but it has not resolved the symptoms. She has been somewhat hypertensive. She appeared extremely anxious. The pain seems to be just there. No aggravating or relieving factors identified. Pain is everywhere on the abdominal area. PFSH Past Medical History Narrative Medical List of her past medical, surgical, social and family history is reviewed from the nursing note. 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29) Cardiac Catheterization: Yes Cardiovascular Problems: Yes High Cholesterol: Yes Chemotherapy: Yes Chest Pain: Yes Congestive Heart Failure: Yes COPD: Yes Cerebrovascular Accident: Yes Coronary Artery Disease: Yes Diabetes: Yes Patient Takes Glucophage: No Diminished Hearing: No Endocrine: Yes Gastrointestinal Disorders: No GERD: Yes Glaucoma: No Genitourinary: Yes Headaches: No Hepatitis: No Hiatal Hernia: No Heparin Induced Thrombocytopen: No Hypertension: Yes Immune Disorder: No Implanted Vascular Access Dvce: Yes Kidney Stones: No Musculoskeletal: Yes (SPINAL STENOSIS) Neurologic: Yes (PARKINSONS ) Parkinson's Disease: Yes Psychiatric: No Reproductive: No Respiratory: Yes (copd) Migraines: No Myocardial Infarction: Yes Radiation Therapy: No Renal Failure: No Seizures: No Sickle Cell Disease: No Sleep Apnea: No Thyroid Disease: Yes Ulcer: No PNEUMOCCOCAL Vaccine (Year): 2007 Menopausal: Yes : 11 Para: 4 Miscarriage: 7 Past Surgical History AICD: No Appendectomy: Yes Arteriovenous Shunt: No Body Medical Devices: cardiac stents x 11. Cardiac Surgery: Yes (QUADRUPLE BYPASS X2) Section: No Cholecystectomy: Yes Coronary Artery Bypass Graft: Yes Coronary Stent: Yes (11 STENTS) Ear Surgery: No Endocrine Surgery: No Eye Surgery: No Genitourinary Surgery: No Gynecologic Surgery: Yes (FIBROIDS REMOVED) Insulin Pump: No Joint Replacement: No Neurologic Surgery: Yes (TUMOR REMOVED FROM SPINE, TWO RIBS REMOVED) Oral Surgery: No Pacemaker: No Thoracic Surgery: Yes (QUAD BYPASS x2 (2007, 2008), ribs removed) Other Surgery: Yes (SARCOMA BILATERAL BREASTS,SPINE AND RIBS,UTERINE FIBROIDS) Family History Family Myocardial Infarction: Yes Social History Alcohol Use: Yes (rare) Tobacco Use: No ("QUIT 50 YEARS AGO") Substance Use: No (PT DENIES) Allergies-Medications (Allergen,Severity, Reaction): Coded Allergies: diatrizoate meglumine (Verified Allergy, Severe, Anaphylaxis, 06/02/17) erythromycin base (Verified Allergy, Severe, RASH, 06/02/17) gadobenic acid (Verified Allergy, Severe, Anaphylaxis, 06/02/17) gadodiamide (Verified Allergy, Severe, Anaphylaxis, 06/02/17) gadoteridol (Verified Allergy, Severe, Anaphylaxis, 06/02/17) iodixanol (Verified Allergy, Severe, Anaphylaxis, 06/02/17) iohexol (Verified Allergy, Severe, Anaphylaxis, 06/02/17) ferrous fumarate (Verified Allergy, Intermediate, RASH, 06/02/17) ferrous sulfate (Verified Allergy, Intermediate, RASH, 06/02/17) ferumoxytol (Verified Allergy, Intermediate, RASH, 06/02/17) iron (Verified Allergy, Intermediate, RASH, 06/02/17) multivitamin infusion, adult no.4 with vitamin K (Verified Allergy, Intermediate, RASH, 06/02/17) multivitamin with iron,other minerals (Verified Allergy, Intermediate, RASH, 06/02/17) Comments List of his allergies reviewed from the nursing note. Reported Meds & Prescriptions Reported Meds & Active Scripts Active Reported Plavix (Clopidogrel Bisulfate) 75 Mg Tab 75 Mg PO DAILY Neurontin (Gabapentin) 300 Mg Cap 300 Mg PO TID Hydrocodone-Acetaminophen 7.5-325 mg Tab 1 Tab PO Q6H PRN Ranexa ER 12 HR (Ranolazine) 500 Mg Tab 500 Mg PO DAILY Protonix (Pantoprazole Sodium) 40 Mg Tab 40 Mg PO DAILY Nitroglycerin 5 Mg/Ml Inj 0.4 Mg SL PRN Metoprolol Tartrate 25 Mg Tab 25 Mg PO BID Losartan (Losartan Potassium) 100 Mg Tab 100 Mg PO DAILY Levothyroxine (Levothyroxine Sodium) 50 Mcg Tab 50 Mcg PO DAILY Isosorbide Mononitrate 20 Mg Tab 120 Mg PO BID Take 2 doses 7 hours apart. Glyburide 2.5 Mg Tab 2.5 Mg PO DAILY Take with meals at the same time each day Lexapro (Escitalopram Oxalate) 10 Mg Tab 10 Mg PO DAILY Carbidopa-Levodopa 10-100 Mg Tab 3 Tab PO BID Amlodipine (Amlodipine Besylate) 5 Mg Tab 5 Mg PO DAILY Aspirin 325 Mg Tab 325 Mg PO DAILY Alprazolam 0.25 Mg Tab 0.25 Mg PO HS PRN Narrative Medication List of her home medications reviewed from the nursing note. Review of Systems Except as stated in HPI: all other systems reviewed are Neg Gastrointestinal: Positive: Nausea, Vomiting, Abdominal Pain Physical Exam Narrative GENERAL: Awake, alert, obese, very anxious, moderate disc SKIN: Focused skin assessment warm/dry. HEAD: Atraumatic. Normocephalic. EYES: Pupils equal and round. No scleral icterus. No injection or drainage. ENT: No nasal bleeding or discharge. Mucous membranes pink and moist. NECK: Trachea midline. No JVD. CARDIOVASCULAR: Regular rate and rhythm. No murmur appreciated. RESPIRATORY: No accessory muscle use. Clear to auscultation. Breath sounds equal bilaterally. GASTROINTESTINAL: Abdomen soft, diffuse tenderness, nondistended. Hepatic and splenic margins not palpable. MUSCULOSKELETAL: No obvious deformities. No clubbing. No cyanosis. No edema. NEUROLOGICAL: Awake and alert. No obvious cranial nerve deficits. Motor grossly within normal limits. Normal speech. PSYCHIATRIC: Appropriate mood and affect; insight and judgment normal. Data Data Last Documented VS Orders Orders Complete Blood Count With Diff (06/02/17 13:34) Comprehensive Metabolic Panel (06/02/17 13:34) Urinalysis - C+S If Indicated (06/02/17 13:34) Electrocardiogram (06/02/17 ) Chest, Single Ap (06/02/17 ) Ct Abd/Pel W/O Iv Contrast (06/02/17 ) Clonidine (Catapres) (06/02/17 13:45) Non Destructive Tester / Telemetry [id number].Q8H (06/02/17 13:34) ^ Saline Lock (06/02/17 13:34) Urine Culture (06/02/17 13:45) Albuterol Neb (Albuterol Neb) (12/3/17 15:30) Ed Discharge Order (06/02/17 15:52) Labs Laboratory Tests Test 06/02/17 13:45 White Blood Count 4.3 TH/MM3 Red Blood Count 4.75 MIL/MM3 Hemoglobin 13.3 GM/DL Hematocrit 42.1 % Mean Corpuscular Volume 88.7 FL Mean Corpuscular Hemoglobin 28.1 PG Mean Corpuscular Hemoglobin Concent 31.7 % Red Cell Distribution Width 14.1 % Platelet Count 140 TH/MM3 Mean Platelet Volume 9.3 FL Neutrophils (%) (Auto) 63.7 % Lymphocytes (%) (Auto) 25.8 % Monocytes (%) (Auto) 8.0 % Eosinophils (%) (Auto) 2.2 % Basophils (%) (Auto) 0.3 % Neutrophils # (Auto) 2.8 TH/MM3 Lymphocytes # (Auto) 1.1 TH/MM3 Monocytes # (Auto) 0.3 TH/MM3 Eosinophils # (Auto) 0.1 TH/MM3 Basophils # (Auto) 0.0 TH/MM3 CBC Comment DIFF FINAL Differential Comment Urine Collection Type CLEAN CATCH Urine Color YELLOW Urine Turbidity CLEAR Urine pH 5.5 Urine Specific [place] 1.016 Urine Protein NEG mg/dL Urine Glucose (UA) NEG mg/dL Urine Ketones NEG mg/dL Urine Occult Blood NEG Urine Nitrite NEG Urine Bilirubin NEG Urine Leukocyte Esterase NEG Urine WBC 0-2 /hpf Urine Squamous Epithelial Cells 6-8 /hpf Urine Bacteria MOD /hpf Microscopic Urinalysis Comment CULTURE INDICATED Urine Collection Time 13:45 Blood Urea Nitrogen 16 MG/DL Creatinine 1.30 MG/DL Random Glucose 167 MG/DL Total Protein 7.9 GM/DL Albumin 3.8 GM/DL Calcium Level 8.8 MG/DL Alkaline Phosphatase 62 U/L Aspartate Amino Transf (AST/SGOT) 46 U/L Alanine Aminotransferase (ALT/SGPT) 22 U/L Total Bilirubin 0.8 MG/DL Sodium Level 137 MEQ/L Potassium Level 5.2 MEQ/L Chloride Level 104 MEQ/L Carbon Dioxide Level 26.6 MEQ/L Anion Gap 6 MEQ/L Estimat Glomerular Filtration Rate 39 ML/MIN MDM Medical Decision Making Medical Screen Exam Complete: Yes Emergency Medical Condition: Yes Medical Record Reviewed: Yes Interpretation(s) Twelve-lead EKG was reviewed by me. Normal sinus rhythm, extremely right axis deviation, right bundle branch block. Heart rate of 80 bpm. Differential Diagnosis Small bowel obstruction, acute cholecystitis, electrolyte abnormality Narrative Course 3:56 PM all the blood test results of back and within acceptable limit. UA is negative. CT abdomen and pelvis was negative. Patient started complaining of some shortness of breath after she came back from CT and I ordered an albuterol. I am ready to discharge her home. In my opinion patient is extremely anxious. She needs to see her primary care. Procedures EKG Prior to Arrival: No Diagnosis Primary Impression: Abdominal pain, unspecified site Additional Impression: Anxiety Referrals: Primary Care Physician Additional Instructions: Please follow-up with your primary care physician. Return to the ER if the condition worsens or any other new concerns. Disposition: 01 DISCHARGE HOME Condition: Stable Vignesh Rojo MD Jun 02, 2017 13:24
[2017-06-02] MEDS ORDERED: cloNIDine HCL 0.1 MG TAB PO ONE (13:45)
[2017-06-02 13:56] LABS: BLOOD, URINE NEG (NEG); GLUCOSE,URINE NEG (NEG); KETONE, URINE NEG (NEG); NITRITE,URINE NEG (NEG); PH, URINE 5.5 (5.0-8.5)
[2017-06-02 13:57] LABS: AUTOMATED NEUTROPHIL # 2.8 TH/MM3 (1.8-7.7); BASOPHIL % 0.3 % (0.0-2.0); EOSINOPHIL # 0.1 TH/MM3 (0-0.4); EOSINOPHIL % 2.2 % (0.0-4.0); HEMATOCRIT 42.1 % (35.0-46.0); HEMO FLAGS DIFF FINAL; LYMPH % 25.8 % (9.0-44.0); LYMPHOCYTE # 1.1 TH/MM3 (1.0-4.8); MEAN CELL VOLUME 88.7 FL (80.0-100.0); MEAN CORPUSCULAR HEMOGLOBIN 28.1 PG (27.0-34.0); MEAN CORPUSCULAR HGB CONC 31.7 % (32.0-36.0); NEUT % 63.7 % (16.0-70.0); PLATELET COUNT 140 TH/MM3 (150-450); RED BLOOD COUNT 4.75 MIL/MM3 (4.00-5.30); RED CELL DISTRIBUTION WIDTH 14.1 % (11.6-17.2); WHITE BLOOD COUNT 4.3 TH/MM3 (4.0-11.0)
[2017-06-02 14:04] VITALS: BP 213/128; PULSE 70; RESP 20; O2SAT 97
[2017-06-02 14:05] LABS: CHLORIDE 104 MEQ/L (98-107); SODIUM (NA) 137 MEQ/L (136-145)
[2017-06-02 14:08] LABS: METHOD OF COLLECTION CLEAN CATCH
[2017-06-02 14:09] LABS: ANION GAP 6 MEQ/L (5-15); BACTERIA, URINE MOD /hpf; BICARBONATE 26.6 MEQ/L (21.0-32.0); BLOOD UREA NITROGEN 16 MG/DL (7-18); COMMENT (UR) CULTURE INDICATED; CULTURE IF INDICATED CULTURE INDICATED; URINE COLOR YELLOW (YELLW/STRAW); WBC, URINE 0-2 /hpf (0-5)
[2017-06-02 14:12] LABS: ALT (GPT) 22 U/L (10-53); AST (GOT) 46 U/L (15-37); GLOMERULAR FILTRATION RATE 39 ML/MIN (>89)
[2017-06-02 14:14] LABS: TOTAL BILIRUBIN ADULT 0.8 MG/DL (0.2-1.0)
[2017-06-02 14:15] LABS: ALKALINE PHOSPHATASE 62 U/L (45-117)
--- NOTE | 2017-06-02 14:22 | RADRPT ---
EXAM DATE/TIME: 06/02/2017 13:49 [facility] COMPARISON: CHEST SINGLE AP, April 07, 2017, 11:48. INDICATIONS : Fever, cough, chest pains, right flank pain MEDICAL HISTORY : Carcinoma, bone. Congestive heart failure. Chronic obstructive pulmonary disease. SURGICAL HISTORY : CABG. ENCOUNTER: Initial ACUITY: 1 day PAIN SCORE: 5/10 LOCATION: Bilateral chest FINDINGS: Postsurgical features of prior median sternotomy and cardiac surgery. Cardiac slit is enlarged. There are no new focal pleural or parenchymal opacities. Remainder of exam is unchanged. CONCLUSION: 1. Postsurgical features with compensated cardiomegaly. 2. No significant interval change or acute abnormality. Titi Gillis MD on June 02, 2017 at 14:19 Board Certified Radiologist. This report was verified electronically.
[2017-06-02 14:23] LABS: POTASSIUM 5.2 MEQ/L (3.5-5.1)
[2017-06-02] MEDS ORDERED: RESP: ALBUTEROL 2.5 MG/3 ML NEB (SCH) NEB ONE (15:30)
--- NOTE | 2017-06-02 15:33 | RADRPT ---
EXAM DATE/TIME: 06/02/2017 14:46 [facility] COMPARISON: CT ABDOMEN & PELVIS W/O CONTRAST, October 01, 2015, 12:47. INDICATIONS : Right flank pain. ORAL CONTRAST: No oral contrast ingested. RADIATION DOSE: 23.34 CTDIvol (mGy) MEDICAL HISTORY : Cerebrovascular disease. Cardiovascular disease Hypertension.Renal disease. Diabetes. SURGICAL HISTORY : CABG Coronary artery stent.Appendectomy.Cholecystectomy. Fibroids removed. ENCOUNTER: Initial ACUITY: 3 days PAIN SCALE: 6/10 LOCATION: Right flank TECHNIQUE: Volumetric scanning of the abdomen and pelvis was performed. Using automated exposure control and ad justment of the mA and/or kV according to patient size, radiation dose was kept as low as reasonably achievable to obtain optimal diagnostic quality images. DICOM format image data is available electro nically for review and comparison. FINDINGS: LOWER LUNGS: The visualized lower lungs are clear. LIVER: Homogeneous density without lesion. There is no dilation of the biliary tree. Gallbladder is surgica lly absent. SPLEEN: Normal size without lesion. Scattered calcifications. PANCREAS: Within normal limits. KIDNEYS: Stable in appearance with cortical scarring noted in the right kidney. Small calcified density in the central superior right renal pole stable from prior exam and likely vascular in etiology. No hydrone phrosis or radiopaque renal calculi. ADRENAL GLANDS: Within normal limits. VASCULAR: There is no aortic aneurysm. BOWEL/MESENTERY: The stomach, small bowel, and colon demonstrate no acute abnormality. There is no free intraperitone al air or fluid. ABDOMINAL WALL: Within normal limits. RETROPERITONEUM: There is no lymphadenopathy. BLADDER: No wall thickening or mass. REPRODUCTIVE: Within normal limits. INGUINAL: There is no lymphadenopathy or hernia. MUSCULOSKELETAL: Within normal limits for patient age. CONCLUSION: 1. No calcified renal calculi or evidence for obstructive uropathy. 2. No stable examination without acute CT abnormality in the abdomen or pelvis. Titi Gillis MD on June 02, 2017 at 15:27 Board Certified Radiologist. This report was verified electronically.
[2017-06-02 15:38] VITALS: BP 188/99; PULSE 65; RESP 20; O2SAT 100
--- NOTE | 2017-06-03 18:28 | EKG ---
Date Performed: 06/02/2017 Time Performed: 13:59:33 PTAGE: 82 years EKG: ATRIAL FIBRILLATION MARKED RIGHT AXIS DEVIATION RIGHT BUNDLE BRANCH BLOCK ABNORMAL ECG Comp ared to PREVIOUS TRACING , the patient continues in a right bundle branch block. Patient continue s in atrial fibrillation. PREVIOUS TRACING 04/07/2017 11.50.15 DOCTOR: Rodriguez Pedro Interpretating Date/Time 06/03/2017 18:27:33
== END 2017-06-02 16:22 | disposition home or self-care (01) ==
LOC: PHED 12:51
DX: R10.9 Unspecified abdominal pain (principal); F41.9 Anxiety disorder, unspecified; R82.99 Other abnormal findings in urine; J44.9 Chronic obstructive pulmonary disease, unspecified; I10 Essential (primary) hypertension; E78.00 Pure hypercholesterolemia, unspecified; J45.909 Unspecified asthma, uncomplicated; E11.9 Type 2 diabetes mellitus without complications; I67.9 Cerebrovascular disease, unspecified; Z95.5 Presence of coronary angioplasty implant and graft; Z79.01 Long term (current) use of anticoagulants; Z79.899 Other long term (current) drug therapy
CPT/HCPCS: 71010; 74176; 80053; 81001; 85025; 87086; 93005; 94664; 99285; J7613

== ENCOUNTER 2017-07-19 18:11 | Observation (INO) | payer MEDICARE, MEDICAID ==
[~2017-07-19] VITALS: Ht 160 cm; Wt 110.2 kg
[2017-07-19] VITALS (8 sets, daily range): BP systolic 120–191; BP diastolic 68–112; PULSE 93–109; RESP 16–18; TEMP 98.3–98.9; O2SAT 97–100
[~2017-07-19 18:11] MED LIST changes: -MACR100C2 PO
[2017-07-19] MEDS ORDERED: ONDANSETRON HCL 4 MG/2 ML VIAL IV PUSH ONE (18:30)
--- NOTE | 2017-07-19 18:31 | PD ---
HPI Chief Complaint: Abdominal Pain Time Seen by Provider: 18:16 Travel History International Travel<30 days: No Contact w/Intl Traveler<30days: No Traveled to known affect area: No History of Present Illness HPI 82 y/o female presents with diffuse abdominal pain with cough, congestion, body aches, nonbloody emesis, constipation and general ill feeling over the past couple of days. She states her son is sick with similar symptoms. She states she feels worse when she moves around. She denies other modifying factors. She denies other concurrent complaints. She presents by ambulance. 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29) Cardiac Catheterization: Yes Cardiovascular Problems: Yes (QUAD BYPASSX2) High Cholesterol: Yes Chemotherapy: No Chest Pain: Yes Congestive Heart Failure: Yes COPD: Yes Cerebrovascular Accident: No Coronary Artery Disease: Yes Diabetes: Yes Patient Takes Glucophage: No Diminished Hearing: No Endocrine: Yes Gastrointestinal Disorders: No GERD: Yes Glaucoma: No Genitourinary: Yes Headaches: No Hepatitis: No Hiatal Hernia: No Heparin Induced Thrombocytopen: No Hypertension: Yes Immune Disorder: No Implanted Vascular Access Dvce: Yes Kidney Stones: No Medical other: No (RHEUMATIC FEVER A CHILD) Musculoskeletal: Yes (SPINAL STENOSIS) Neurologic: Yes (PARKINSONS ) Parkinson's Disease: Yes Psychiatric: No Reproductive: No Respiratory: No Migraines: No Myocardial Infarction: Yes Radiation Therapy: No Renal Failure: No Seizures: No Sickle Cell Disease: No Sleep Apnea: No Thyroid Disease: Yes Ulcer: No Tetanus Vaccination: > 5 Years Influenza Vaccination: Yes PNEUMOCCOCAL Vaccine (Year): 2007 Menopausal: Yes : 11 Para: 4 Miscarriage: 7 Past Surgical History AICD: No Appendectomy: Yes Arteriovenous Shunt: No Body Medical Devices: cardiac stents x 11. Cardiac Surgery: Yes (QUADRUPLE BYPASS X2) Section: No Cholecystectomy: Yes Coronary Artery Bypass Graft: Yes Coronary Stent: Yes (11 STENTS) Ear Surgery: No Endocrine Surgery: No Eye Surgery: No Genitourinary Surgery: No Gynecologic Surgery: Yes (FIBROIDS REMOVED) Hysterectomy: No Insulin Pump: No Joint Replacement: No Neurologic Surgery: Yes (TUMOR REMOVED FROM SPINE, TWO RIBS REMOVED) Oral Surgery: No Pacemaker: No Thoracic Surgery: Yes (QUAD BYPASS x2 (2007, 2009), ribs removed) Other Surgery: Yes (SARCOMA BILATERAL BREASTS,SPINE AND RIBS,UTERINE FIBROIDS) Family History Family Myocardial Infarction: Yes Social History Alcohol Use: Yes (rare) Tobacco Use: No ("QUIT 50 YEARS AGO") Substance Use: No (PT DENIES) Allergies-Medications (Allergen,Severity, Reaction): Coded Allergies: diatrizoate meglumine (Verified Allergy, Severe, Anaphylaxis, 07/19/17) erythromycin base (Verified Allergy, Severe, RASH, 07/19/17) gadobenic acid (Verified Allergy, Severe, Anaphylaxis, 07/19/17) gadodiamide (Verified Allergy, Severe, Anaphylaxis, 07/19/17) gadoteridol (Verified Allergy, Severe, Anaphylaxis, 07/19/17) iodixanol (Verified Allergy, Severe, Anaphylaxis, 07/19/17) iohexol (Verified Allergy, Severe, Anaphylaxis, 07/19/17) ferrous fumarate (Verified Allergy, Intermediate, RASH, 07/19/17) ferrous sulfate (Verified Allergy, Intermediate, RASH, 07/19/17) ferumoxytol (Verified Allergy, Intermediate, RASH, 07/19/17) iron (Verified Allergy, Intermediate, RASH, 07/19/17) multivitamin infusion, adult no.4 with vitamin K (Verified Allergy, Intermediate, RASH, 07/19/17) multivitamin with iron,other minerals (Verified Allergy, Intermediate, RASH, 07/19/17) Reported Meds & Prescriptions Reported Meds & Active Scripts Active Reported Plavix (Clopidogrel Bisulfate) 75 Mg Tab 75 Mg PO DAILY Neurontin (Gabapentin) 300 Mg Cap 300 Mg PO TID Hydrocodone-Acetaminophen 7.5-325 mg Tab 1 Tab PO Q6H PRN Ranexa ER 12 HR (Ranolazine) 500 Mg Tab 500 Mg PO DAILY Protonix (Pantoprazole Sodium) 40 Mg Tab 40 Mg PO DAILY Nitroglycerin 5 Mg/Ml Inj 0.4 Mg SL PRN Metoprolol Tartrate 25 Mg Tab 25 Mg PO BID Losartan (Losartan Potassium) 100 Mg Tab 100 Mg PO DAILY Levothyroxine (Levothyroxine Sodium) 50 Mcg Tab 50 Mcg PO DAILY Isosorbide Mononitrate 20 Mg Tab 120 Mg PO BID Take 2 doses 7 hours apart. Glyburide 2.5 Mg Tab 2.5 Mg PO DAILY Take with meals at the same time each day Lexapro (Escitalopram Oxalate) 10 Mg Tab 10 Mg PO DAILY Carbidopa-Levodopa 10-100 Mg Tab 3 Tab PO BID Amlodipine (Amlodipine Besylate) 5 Mg Tab 5 Mg PO DAILY Aspirin 325 Mg Tab 325 Mg PO DAILY Alprazolam 0.25 Mg Tab 0.25 Mg PO HS PRN Review of Systems Except as stated in HPI: all other systems reviewed are Neg Physical Exam Narrative GENERAL: Well-nourished, well-developed patient. Frequent nonproductive cough noted SKIN: Warm and dry. HEAD: Normocephalic and atraumatic. EYES: No injection or drainage. ENT: No nasal drainage noted. NECK: Supple, trachea midline. CARDIOVASCULAR: Regular rate and rhythm RESPIRATORY: Breath sounds equal bilaterally. No accessory muscle use. GASTROINTESTINAL: Abdomen soft, mild distention with diffuse tenderness NEUROLOGICAL: Awake. Moves all extremities and sensory grossly within normal limits. Normal speech. Data Data Last Documented VS Vital Signs Date Time Temp Pulse Resp B/P (MAP) Pulse Ox O2 Delivery O2 Flow Rate FiO2 07/19/17 18:29 18 97 Room Air 07/19/17 18:16 98.3 93 177/95 (122) Orders Orders Complete Blood Count With Diff (07/19/17 18:16) Comprehensive Metabolic Panel (07/19/17 18:16) Urinalysis - C+S If Indicated (07/19/17 18:16) Lipase (07/19/17 18:16) Iv Access Insert/Monitor (07/19/17 18:16) Oximetry (07/19/17 18:16) Ct Abd/Pel W/O Iv Contrast (07/19/17 ) Ondansetron Inj (Zofran Inj) (07/19/17 18:30) Influenzae A/B Antigen (07/19/17 18:25) Chest, Pa & Lat (07/19/17 ) Lactic Acid (07/19/17 18:26) Albuterol-Ipratropium Neb (Duoneb Neb) (07/19/17 18:45) Oral Contrast - Adult (07/19/17 18:36) Labs Laboratory Tests Test 07/19/17 18:40 White Blood Count 5.6 TH/MM3 Red Blood Count 4.44 MIL/MM3 Hemoglobin 13.1 GM/DL Hematocrit 39.5 % Mean Corpuscular Volume 88.8 FL Mean Corpuscular Hemoglobin 29.6 PG Mean Corpuscular Hemoglobin Concent 33.3 % Red Cell Distribution Width 13.0 % Platelet Count 122 TH/MM3 Mean Platelet Volume 9.6 FL Neutrophils (%) (Auto) 79.6 % Lymphocytes (%) (Auto) 8.8 % Monocytes (%) (Auto) 9.9 % Eosinophils (%) (Auto) 1.2 % Basophils (%) (Auto) 0.5 % Neutrophils # (Auto) 4.4 TH/MM3 Lymphocytes # (Auto) 0.5 TH/MM3 Monocytes # (Auto) 0.6 TH/MM3 Eosinophils # (Auto) 0.1 TH/MM3 Basophils # (Auto) 0.0 TH/MM3 CBC Comment DIFF FINAL Differential Comment MDM Medical Decision Making Medical Screen Exam Complete: Yes Emergency Medical Condition: Yes Medical Record Reviewed: Yes (past history confirmed) Differential Diagnosis Influenza, pneumonia, URI, obstruction, gastroenteritis, COPD Narrative Course Will check blood work, urinalysis, chest x-ray, influenza, and check CT scan abdomen pelvis while dosing with Zofran and DuoNeb's and reevaluate Physician Communication Physician Communication oncoming physician dr ignacio will follow workup and reevaluate Nahomi Beranrd MD Jul 19, 2017 18:31
[2017-07-19] MEDS ORDERED: RESP: ALBUTEROL 2.5 MG/IPRATROPIUM 0.5 MG NEB (SCH) NEB ONE (18:45)
[2017-07-19 18:52] LABS: AUTOMATED NEUTROPHIL # 4.4 TH/MM3 (1.8-7.7); BASOPHIL % 0.5 % (0.0-2.0); EOSINOPHIL # 0.1 TH/MM3 (0-0.4); EOSINOPHIL % 1.2 % (0.0-4.0); HEMATOCRIT 39.5 % (35.0-46.0); HEMOGLOBIN 13.1 GM/DL (11.6-15.3); LYMPH % 8.8 % (9.0-44.0); LYMPHOCYTE # 0.5 TH/MM3 (1.0-4.8); MEAN CELL VOLUME 88.8 FL (80.0-100.0); MEAN CORPUSCULAR HEMOGLOBIN 29.6 PG (27.0-34.0); MEAN CORPUSCULAR HGB CONC 33.3 % (32.0-36.0); MEAN PLATELET VOLUME 9.6 FL (7.0-11.0); MONO % 9.9 % (0.0-8.0); MONOCYTE # 0.6 TH/MM3 (0-0.9); NEUT % 79.6 % (16.0-70.0); PLATELET COUNT 122 TH/MM3 (150-450); RED BLOOD COUNT 4.44 MIL/MM3 (4.00-5.30); WHITE BLOOD COUNT 5.6 TH/MM3 (4.0-11.0)
[2017-07-19 19:01] LABS: CHLORIDE 100 MEQ/L (98-107); SODIUM (NA) 135 MEQ/L (136-145)
[2017-07-19 19:04] LABS: CALCIUM 9.1 MG/DL (8.5-10.1)
[2017-07-19 19:05] LABS: ALBUMIN 3.6 GM/DL (3.4-5.0); BICARBONATE 26.5 MEQ/L (21.0-32.0); BLOOD UREA NITROGEN 23 MG/DL (7-18); GLUCOSE,RANDOM 179 MG/DL (74-106); LIPASE 108 U/L (73-393)
[2017-07-19 19:07] LABS: ALT (GPT) 7 U/L (10-53); AST (GOT) 20 U/L (15-37); GLOMERULAR FILTRATION RATE 27 ML/MIN (>89)
[2017-07-19 19:09] LABS: TOTAL BILIRUBIN ADULT 0.8 MG/DL (0.2-1.0); TOTAL PROTEIN 7.6 GM/DL (6.4-8.2)
[2017-07-19 19:10] LABS: ALKALINE PHOSPHATASE 64 U/L (45-117)
--- NOTE | 2017-07-19 19:10 | PD ---
Physical Exam Date Seen by Provider: Jul 19, 2017 Time Seen by Provider: 19:10 Narrative Accepted in transfer of care from Dr. Bernard GENERAL: Pleasant elderly female in no acute distress no respiratory distress with 2 L/m supplemental oxygen in place SKIN: Warm and dry. HEAD: Normocephalic. EYES: No scleral icterus. No injection or drainage. NECK: Supple, trachea midline. No JVD or lymphadenopathy. CARDIOVASCULAR: Regular rate and rhythm without murmurs, gallops, or rubs. RESPIRATORY: Breath sounds equal bilaterally. No accessory muscle use. GASTROINTESTINAL: Abdomen soft, non-tender, nondistended. Data Data Last Documented VS Vital Signs Date Time Temp Pulse Resp B/P (MAP) Pulse Ox O2 Delivery O2 Flow Rate FiO2 07/19/17 21:55 18 07/19/17 21:51 98 130/73 (92) 100 Nasal Cannula 4.00 07/19/17 18:16 98.3 Orders Orders Complete Blood Count With Diff (07/19/17 18:16) Comprehensive Metabolic Panel (07/19/17 18:16) Urinalysis - C+S If Indicated (07/19/17 18:16) Lipase (07/19/17 18:16) Iv Access Insert/Monitor (07/19/17 18:16) Oximetry (07/19/17 18:16) Ct Abd/Pel W/O Iv Contrast (07/19/17 ) Ondansetron Inj (Zofran Inj) (07/19/17 18:30) Influenzae A/B Antigen (07/19/17 18:25) Chest, Pa & Lat (07/19/17 ) Lactic Acid (07/19/17 18:26) Albuterol-Ipratropium Neb (Duoneb Neb) (07/19/17 18:45) Oral Contrast - Adult (07/19/17 18:36) Diatrizoate Liq ( Gastrofer Brownleeq) (07/19/17 19:12) Nitroglycerin 2% Oint (Nitroglycerin 2% (07/19/17 19:45) Ckmb (Isoenzyme) Profile (07/19/17 18:40) Troponin I (07/19/17 18:40) Nitroglycerin 2% Oint (Nitroglycerin 2% (07/19/17 21:45) Electrocardiogram (07/19/17 ) Admit Order (Ed Use Only) (07/19/17 ) Soil Science Professor / Telemetry AILYN.Q8H (07/19/17 22:03) Diet 1999 Ada Cons Carb (07/20/17 Breakfast) Activity Oob With Assistance (07/19/17 22:03) Notify Dr: Other (07/19/17 22:03) Activity Bed Rest With Brp (07/19/17 22:03) Vital Signs (Adult) Q4H (07/19/17 22:03) Cardiac Rhythm .As Directed (07/19/17 22:03) Notify Dr: Other .PRN (07/19/17 22:03) Notify Parameters (07/19/17 22:03) Resp Oxygen Nasal Cannula (07/19/17 ) Ckmb (Isoenzyme) Profile (07/19/17 22:03) Ckmb (Isoenzyme) Profile (07/20/17 01:03) Troponin I (07/19/17 22:03) Troponin I (07/20/17 01:03) Electrocardiogram (07/19/17 22:03) Electrocardiogram (07/20/17 01:03) ^ Obtain (07/19/17 22:03) Sodium Chloride 0.9% Flush (Ns Flush) (07/19/17 22:15) Sodium Chloride 0.9% Flush (Ns Flush) (07/20/17 09:00) Acetaminophen (Tylenol) (07/19/17 22:15) Ondansetron Inj (Zofran Inj) (07/19/17 22:15) Nitroglycerin Sl (Nitrostat Sl) (07/19/17 22:15) Aspirin (Aspirin) (07/20/17 09:00) Soil Science Professor / Telemetry AILNY.Q8H (07/19/17 22:03) Albuterol-Ipratropium Neb (Duoneb Neb) (07/19/17 22:15) Labs Laboratory Tests Test 07/19/17 18:40 07/19/17 21:15 White Blood Count 5.6 TH/MM3 Red Blood Count 4.44 MIL/MM3 Hemoglobin 13.1 GM/DL Hematocrit 39.5 % Mean Corpuscular Volume 88.8 FL Mean Corpuscular Hemoglobin 29.6 PG Mean Corpuscular Hemoglobin Concent 33.3 % Red Cell Distribution Width 13.0 % Platelet Count 122 TH/MM3 Mean Platelet Volume 9.6 FL Neutrophils (%) (Auto) 79.6 % Lymphocytes (%) (Auto) 8.8 % Monocytes (%) (Auto) 9.9 % Eosinophils (%) (Auto) 1.2 % Basophils (%) (Auto) 0.5 % Neutrophils # (Auto) 4.4 TH/MM3 Lymphocytes # (Auto) 0.5 TH/MM3 Monocytes # (Auto) 0.6 TH/MM3 Eosinophils # (Auto) 0.1 TH/MM3 Basophils # (Auto) 0.0 TH/MM3 CBC Comment DIFF FINAL Differential Comment Blood Urea Nitrogen 23 MG/DL Creatinine 1.80 MG/DL Random Glucose 179 MG/DL Total Protein 7.6 GM/DL Albumin 3.6 GM/DL Calcium Level 9.1 MG/DL Alkaline Phosphatase 64 U/L Aspartate Amino Transf (AST/SGOT) 20 U/L Alanine Aminotransferase (ALT/SGPT) 7 U/L Total Bilirubin 0.8 MG/DL Sodium Level 135 MEQ/L Potassium Level 4.1 MEQ/L Chloride Level 100 MEQ/L Carbon Dioxide Level 26.5 MEQ/L Anion Gap 9 MEQ/L Estimat Glomerular Filtration Rate 27 ML/MIN Lactic Acid Level 1.2 mmol/L Total Creatine Kinase 64 U/L Troponin I LESS THAN 0.02 NG/ML Lipase 108 U/L Urine Color ANT Urine Turbidity SLIGHT Urine pH 5.5 Urine Specific [place] 1.032 Urine Protein TRACE mg/dL Urine Glucose (UA) NEG mg/dL Urine Ketones TRACE mg/dL Urine Occult Blood NEG Urine Nitrite NEG Urine Bilirubin NEG Urine Leukocyte Esterase NEG Urine RBC 0-3 /hpf Urine WBC 3-5 /hpf Urine Squamous Epithelial Cells 0-5 /hpf Urine Calcium Oxalate Crystals MOD /hpf Urine Hyaline Casts 3-5 /lpf Microscopic Urinalysis Comment CULT NOT INDICATED [facility] Medical Record Reviewed: Yes Supervised Visit with ART: No Interpretation(s) UA: cx not indicated tropo I: <0.02, not elevated; ck: 64, not elevated lactic acid: 1.2, not elevated influenza a/b ag: neg Last Impressions Chest X-Ray 07/19/17 0000 Signed Impressions: Service Date/Time: Wednesday, July 19, 2017 19:07 - CONCLUSION: 1. Mild cardiomegaly. Clear lungs. Cruz Barrett Jr., MD Abdomen/Pelvis CT 07/19/17 0000 Signed Impressions: Service Date/Time: Wednesday, July 19, 2017 20:19 - CONCLUSION: 1. No acute abnormality. 2. Prior cholecystectomy. 3. Prior granulomatous disease. Cruz Barrett Jr., MD CBC & BMP Diagram 07/19/17 18:40 Total Protein 7.6, Albumin 3.6, Calcium Level 9.1, Alkaline Phosphatase 64, Aspartate Amino Transf (AST/SGOT) 20, Alanine Aminotransferase (ALT/SGPT) 7 L, Total Bilirubin 0.8 Vital Signs Date Time Temp Pulse Resp B/P (MAP) Pulse Ox O2 Delivery O2 Flow Rate FiO2 07/19/17 21:55 18 07/19/17 21:51 98 16 130/73 (92) 100 Nasal Cannula 4.00 07/19/17 20:44 109 18 182/78 (112) 100 Nasal Cannula 4.00 07/19/17 20:11 108 18 191/112 (138) 100 Nasal Cannula 4.00 07/19/17 18:29 18 97 Room Air 07/19/17 18:16 98.3 93 18 177/95 (122) 97 EKG: sinus tachycardia with first degree av block rate [address] depression Differential Diagnosis Accepted in transfer of care from Dr. Bernard; please refer to her dictation Narrative Course Accepted in transfer of care from Dr. Bernard Lab values resulted patient identified to have renal insufficiency CK and troponin are within normal range; CT abdomen and pelvis reveals no acute process. Patient with history of CAD CABG and a catheterization with multiple coronary stents hypertension dyslipidemia diabetes AFib RBBB previous tobacco use COPD who presents for complaint of recent chest pain and intermittent nausea and intermittent and vague abdominal pain with lab values grossly within normal range specifically CK and troponin I less than 0.02 also with some renal insufficiency no evidence of congestive heart failure COPD; in view of risk factors profile of CAD hypertension dyslipidemia and COPD with a chest pain abdominal pain and nausea concerning for her nausea being her anginal equivalents that has improved while here in the emergency department after application Nitropaste and Zofran recommend patient be admitted for observation to chest pain center for serial cardiac enzymes and evaluation for nuclear stress test in a.m. Patient is followed by Dr. Shelley and review medical records indicates previously she had declined any recommendations for stress test but states that she was just here for but states that she is agreeable with this time to proceed with stress test if indicated. Discussed with Dr Roth --obs to group home supervisor Physician Communication Physician Communication discussed with [facility] --- OBS Diagnosis Primary Impression: Chest pain Additional Impression: Renal insufficiency Admitting Information Admitting Physician Requests: Observation Dian Valero MD Jul 19, 2017 19:10
[2017-07-19] MEDS ORDERED: DIATRIZOATE MEGLUM/DIATRIZOATE SOD 9 ML CUP ONE (19:12)
--- NOTE | 2017-07-19 19:27 | RADRPT ---
EXAM DATE/TIME: 07/19/2017 19:07 [facility] COMPARISON: CHEST PA & LAT, April 17, 2014, 12:27. INDICATIONS : Cough. MEDICAL HISTORY : Cerebrovascular disease. Cardiovascular disease Hypertension.Renal disease. Diabetes SURGICAL HISTORY : CABG Coronary artery stent.Appendectomy.Cholecystectomy. Fibroids removed ENCOUNTER: Initial ACUITY: 1 day PAIN SCORE: 4/10 LOCATION: Bilateral chest FINDINGS: PA and lateral views of the chest demonstrate the lungs to be symmetrically aerated without evidence of mass, infiltrate or effusion. Stable mild cardiomegaly. Osseous structures are intact. Median ster notomy wires. CONCLUSION: 1. Mild cardiomegaly. Clear lungs. Cruz Barrett Jr., MD on July 19, 2017 at 19:24 Board Certified Radiologist. This report was verified electronically.
[2017-07-19] MEDS ORDERED: NITROGLYCERIN 2% OINT 1 GM PACKET TOPICAL ONE ×2 (19:45→21:45)
[2017-07-19 20:04] LABS: TROPONIN I LESS THAN 0.02 NG/ML (0.02-0.05)
--- NOTE | 2017-07-19 20:46 | RADRPT ---
EXAM DATE/TIME: 07/19/2017 20:19 [facility] COMPARISON: CT ABDOMEN & PELVIS W/O CONTRAST, June 02, 2017, 14:46. INDICATIONS : Nausea, vomiting, abdominal pain ORAL CONTRAST: Partial prescribed oral contrast ingested. RADIATION DOSE: 24.97 CTDIvol (mGy) ; Patient body habitus MEDICAL HISTORY : Diabetes mellitus type 2. Parkinsons. Gastroesophageal reflux disease.CHF, COPD, asthma, tuberculosis SURGICAL HISTORY : CABG Appendectomy.Cholecystectomy. ENCOUNTER: Initial ACUITY: 1 day PAIN SCALE: 5/10 LOCATION: abdomen TECHNIQUE: Volumetric scanning of the abdomen and pelvis was performed. Using automated exposure control and ad justment of the mA and/or kV according to patient size, radiation dose was kept as low as reasonably achievable to obtain optimal diagnostic quality images. DICOM format image data is available electro nically for review and comparison. FINDINGS: LOWER LUNGS: A small calcified granuloma noted within the left lung base. Lung bases are otherwise clear. Coronary artery atherosclerotic ossifications noted. Heart normal in size. LIVER: Homogeneous density without lesion. There is no dilation of the biliary tree. Gallbladder is surgica lly absent. SPLEEN: Normal size without lesion. Small granulomatous calcifications involving the spleen. PANCREAS: Within normal limits. KIDNEYS: Normal in size and shape. There is no mass, stone, or hydronephrosis. An atherosclerotic calcificati on is seen involving the upper pole of the right kidney. ADRENAL GLANDS: Within normal limits. VASCULAR: There is no aortic aneurysm. BOWEL/MESENTERY: The stomach, small bowel, and colon demonstrate no acute abnormality. There is no free intraperitone al air or fluid. ABDOMINAL WALL: Within normal limits. RETROPERITONEUM: There is no lymphadenopathy. BLADDER: No wall thickening or mass. REPRODUCTIVE: Within normal limits. Uterus is anteverted and just to the right of midline. INGUINAL: There is no lymphadenopathy or hernia. MUSCULOSKELETAL: A degenerative lumbar spine. CONCLUSION: 1. No acute abnormality. 2. Prior cholecystectomy. 3. Prior granulomatous disease. Cruz Barrett Jr., MD on July 19, 2017 at 20:41 Board Certified Radiologist. This report was verified electronically.
[2017-07-19 21:28] LABS: BILIRUBIN, URINE NEG (NEG); BLOOD, URINE NEG (NEG); GLUCOSE,URINE NEG (NEG); KETONE, URINE TRACE mg/dL (NEG); NITRITE,URINE NEG (NEG); PH, URINE 5.5 (5.0-8.5); URINE LEUKOCYTE ESTERASE NEG (NEG)
[2017-07-19 21:34] LABS: URINE COLOR AMBER (YELLW/STRAW)
[2017-07-19 21:36] LABS: CALCIUM OXALATE CRYSTALS,URINE MOD /hpf; RBC, URINE 0-3 /hpf (0-3); SQUAMOUS EPITHELIAL CELL URINE 0-5 /hpf (0-5)
[2017-07-19] MEDS ORDERED: ONDANSETRON HCL 4 MG/2 ML VIAL IV PUSH PRN (22:15)
[2017-07-19] MEDS ORDERED: NITROGLYCERIN 0.4 MG SL 25 TABS/BTL SL PRN (22:15)
[2017-07-19] MEDS ORDERED: SODIUM CHLORIDE 0.9% FLUSH 10 ML FLUSH IV FLUSH PRN (22:15)
[2017-07-19] MEDS ORDERED: RESP: ALBUTEROL 2.5 MG/IPRATROPIUM 0.5 MG NEB (PRN) NEB (22:15)
[2017-07-19] MEDS ORDERED: ACETAMINOPHEN 500 MG CPLT PO PRN (22:15)
[2017-07-19 23:38] LABS: TROPONIN I LESS THAN 0.02 NG/ML (0.02-0.05)
[2017-07-20] VITALS (8 sets, daily range): BP systolic 108–220; BP diastolic 60–106; PULSE 82–107; RESP 18–20; TEMP 98.3–99.6; O2SAT 92–100
[2017-07-20] MEDS ORDERED: cloNIDine HCL 0.1 MG TAB PO PRN (01:00)
[2017-07-20] MEDS ORDERED: ACETAMINOPHEN/HYDROcodone 325 MG/10 MG TAB PO ONE (01:00)
[2017-07-20 02:32] LABS: TROPONIN I LESS THAN 0.02 NG/ML (0.02-0.05)
[2017-07-20] MEDS ORDERED: ASPIRIN 325 MG TAB PO SCH (09:00)
[2017-07-20] MEDS ORDERED: SODIUM CHLORIDE 0.9% FLUSH 10 ML FLUSH IV FLUSH SCH (09:00)
[2017-07-20] MEDS ORDERED: RANOLAZINE 500 MG EXTENDED RELEASE TAB PO SCH (09:15)
[2017-07-20] MEDS ORDERED: amLODIPine BESYLATE 5 MG TAB PO SCH (09:15)
[2017-07-20] MEDS ORDERED: ISOSORBIDE MONONITRATE 60 MG TAB PO SCH (09:15)
[2017-07-20] MEDS ORDERED: LOSARTAN 50 MG TAB PO SCH (09:15)
[2017-07-20] MEDS ORDERED: CLOPIDOGREL 75 MG TAB PO SCH (09:15)
[2017-07-20] MEDS ORDERED: PANTOPRAZOLE SOD 40 MG DELAYED RELEASE TAB PO SCH (09:15)
[2017-07-20] MEDS ORDERED: CARBIDOPA/LEVODOPA 10 MG/100 MG TAB PO SCH (09:15)
[2017-07-20] MEDS ORDERED: METOPROLOL TARTRATE 25 MG TAB PO SCH (09:15)
[2017-07-20] MEDS ORDERED: ESCITALOPRAM OXALATE 10 MG TAB PO SCH (09:15)
--- NOTE | 2017-07-20 09:28 | HHI.HP ---
HPI Service [facility] Primary Care Physician Nely Irizarry MD Admission Diagnosis chest pain, renal insufficiency Diagnoses: (1) Body aches Diagnosis: Principal (2) Pharyngitis Diagnosis: Principal Chief Complaint: General myalgia, pharyngitis Travel History International Travel<30 Days: No Contact w/Intl Traveler <30 Da: No Traveled to Known Affected Are: No History of Present Illness 82-year-old female with known history of hypertension, hyperlipidemia , coronary artery disease status coronary bypass surgery, history myocardial infarction, diabetes, hypertension, hyperlipidemia, chronic obstructive pulmonary disease, chronic tobacco use, chronic kidney disease stage III, spinal stenosis, chronic diastolic congestive heart failure, hypothyroidism who presented to hospital for a plethora of vague symptoms. Patient indicates that she has had just generalized problems with her legs, feet, arms, runny nose, sore throat, cough, congestion. Is not elaborate on any specific symptom except for her sore throat. Upon review of the medical records it would appear as if patient did present with the same generalized symptoms to the initial ER physician. Workup was done which did not indicate any acute abnormality. Because the patient's cardiac history,consideration that some of her symptoms could be a cardiac variant. Patient absolutely denies any chest pain. She does have reproducible chest pain on palpation. She mainly complained of her throat, generalized body aches and fatigue. Patient is followed by Dr. Shelley on a regular basis. Medications do indicate maximized medication treatment. Patient states that she will not undergo a stress test at this time. Recommend follow-up with her soil conservationist. Review of Systems Constitutional: COMPLAINS OF: Fatigue Respiratory: COMPLAINS OF: Cough Gastrointestinal: COMPLAINS OF: Nausea Except as stated in HPI: all other systems reviewed are Neg Past Family Social History Past Medical History Coronary artery disease with coronary bypass surgery History CVA Diabetes Hypertension Hyperlipidemia Degenerative joint disease Mitral regurgitation Parkinson's Chronic obstructive pulmonary disease Anemia Chronic kidney disease stage III Atrial fibrillation Myocardial infarction Spinal stenosis Chronic diastolic congestive heart failure sarcoma status post surgery Hypothyroidism. Past Surgical History Appendectomy. CABG x 2. Coronary artery catheterization and stent placement. D C. Fibroid surgery. Chest operation to remove sarcoma. Breast sarcoma status post surgical removal. Cholecystectomy Reported Medications Reported Meds & Active Scripts Active Reported Plavix (Clopidogrel Bisulfate) 75 Mg Tab 75 Mg PO DAILY Neurontin (Gabapentin) 300 Mg Cap 300 Mg PO TID Hydrocodone-Acetaminophen 7.5-325 mg Tab 1 Tab PO Q6H PRN Ranexa ER 12 HR (Ranolazine) 500 Mg Tab 500 Mg PO DAILY Protonix (Pantoprazole Sodium) 40 Mg Tab 40 Mg PO DAILY Nitroglycerin 5 Mg/Ml Inj 0.4 Mg SL PRN Metoprolol Tartrate 25 Mg Tab 25 Mg PO BID Losartan (Losartan Potassium) 100 Mg Tab 100 Mg PO DAILY Levothyroxine (Levothyroxine Sodium) 50 Mcg Tab 50 Mcg PO DAILY Isosorbide Mononitrate 20 Mg Tab 120 Mg PO BID Take 2 doses 7 hours apart. Glyburide 2.5 Mg Tab 2.5 Mg PO DAILY Take with meals at the same time each day Lexapro (Escitalopram Oxalate) 10 Mg Tab 10 Mg PO DAILY Carbidopa-Levodopa 10-100 Mg Tab 3 Tab PO BID Amlodipine (Amlodipine Besylate) 5 Mg Tab 5 Mg PO DAILY Aspirin 325 Mg Tab 325 Mg PO DAILY Alprazolam 0.25 Mg Tab 0.25 Mg PO HS PRN Allergies: Coded Allergies: diatrizoate meglumine (Verified Allergy, Severe, Anaphylaxis, 07/19/17) erythromycin base (Verified Allergy, Severe, RASH, 07/19/17) gadobenic acid (Verified Allergy, Severe, Anaphylaxis, 07/19/17) gadodiamide (Verified Allergy, Severe, Anaphylaxis, 07/19/17) gadoteridol (Verified Allergy, Severe, Anaphylaxis, 07/19/17) iodixanol (Verified Allergy, Severe, Anaphylaxis, 07/19/17) iohexol (Verified Allergy, Severe, Anaphylaxis, 07/19/17) ferrous fumarate (Verified Allergy, Intermediate, RASH, 07/19/17) ferrous sulfate (Verified Allergy, Intermediate, RASH, 07/19/17) ferumoxytol (Verified Allergy, Intermediate, RASH, 07/19/17) iron (Verified Allergy, Intermediate, RASH, 07/19/17) multivitamin infusion, adult no.4 with vitamin K (Verified Allergy, Intermediate, RASH, 07/19/17) multivitamin with iron,other minerals (Verified Allergy, Intermediate, RASH, 07/19/17) Family History Reviewed and significant for diabetes Social History Patient states that she has been smoking 1 pack a cigarettes a day since she was 13 years old. Denies any alcohol or illicit drugs Physical Exam Vital Signs Vital Signs Date Time Temp Pulse Resp B/P (MAP) Pulse Ox O2 Delivery O2 Flow Rate FiO2 07/20/17 08:00 98.3 107 20 108/60 (76) 92 07/20/17 04:00 98.3 93 18 195/106 (135) 97 07/20/17 01:15 96 Nasal Cannula 2.00 07/20/17 00:00 99.6 105 18 220/98 (138) 100 07/20/17 00:00 104 07/19/17 23:20 105 16 120/68 (85) 100 Nasal Cannula 4.00 07/19/17 23:16 98.9 105 18 120/68 (85) 100 Nasal Cannula 4.00 07/19/17 22:39 99 Nasal Cannula 4.00 07/19/17 21:55 18 07/19/17 21:51 98 16 130/73 (92) 100 Nasal Cannula 4.00 07/19/17 20:44 109 18 182/78 (112) 100 Nasal Cannula 4.00 07/19/17 20:11 108 18 191/112 (138) 100 Nasal Cannula 4.00 07/19/17 18:29 18 97 Room Air 07/19/17 18:16 98.3 93 18 177/95 (122) 97 Physical Exam GENERAL: Well-developed, well-nourished, in no acute distress. alert and orientated HEENT: Head is normocephalic without any lesions or masses noted. Facial features are symmetric. Eyes: Pupils equal round reactive to light. Extraocular muscles are intact. Conjunctivae were clear. Oropharyngeal: Posterior pharynx does indicate cobblestoning appearance, postnasal drip. Tongue is midline without deviation posterior tongue does have yellow-brown coloration. Buccal mucosa is moist without any masses or lesions NECK: Supple without any masses. Trachea midline no deviation. No JVD, no bruits are appreciated CARDIAC: Regular rhythm, regular rate. S1/S2 are heard. No murmurs gallops or rubs. Reproducible chest wall tenderness LUNGS: Clear to auscultation bilaterally. No wheeze, rhonchi or rales. No use of accessory muscles on inspiration or expiration. ABDOMEN: Soft, nontender. Nondistended. Bowel sounds heard in all 4 quadrants. No organomegaly or masses. Negative rebound, negative guarding EXTREMITIES: No edema, pulses are equal bilaterally. No cyanosis or clubbing NEUROLOGY: Mood and affect appear appropriate. Cranial nerves II through XII grossly intact. Muscle strength 5/5 in upper and lower extremities bilaterally. Deep tendon reflexes are 2+ in upper and lower extremities bilaterally. Laboratory Laboratory Tests Test 07/19/17 18:40 07/19/17 21:15 07/19/17 23:11 07/20/17 02:00 White Blood Count 5.6 Red Blood Count 4.44 Hemoglobin 13.1 Hematocrit 39.5 Mean Corpuscular Volume 88.8 Mean Corpuscular Hemoglobin 29.6 Mean Corpuscular Hemoglobin Concent 33.3 Red Cell Distribution Width 13.0 Platelet Count 122 Mean Platelet Volume 9.6 Neutrophils (%) (Auto) 79.6 Lymphocytes (%) (Auto) 8.8 Monocytes (%) (Auto) 9.9 Eosinophils (%) (Auto) 1.2 Basophils (%) (Auto) 0.5 Neutrophils # (Auto) 4.4 Lymphocytes # (Auto) 0.5 Monocytes # (Auto) 0.6 Eosinophils # (Auto) 0.1 Basophils # (Auto) 0.0 CBC Comment DIFF FINAL Differential Comment Blood Urea Nitrogen 23 Creatinine 1.80 Random Glucose 179 Total Protein 7.6 Albumin 3.6 Calcium Level 9.1 Alkaline Phosphatase 64 Aspartate Amino Transf (AST/SGOT) 20 Alanine Aminotransferase (ALT/SGPT) 7 Total Bilirubin 0.8 Sodium Level 135 Potassium Level 4.1 Chloride Level 100 Carbon Dioxide Level 26.5 Anion Gap 9 Estimat Glomerular Filtration Rate 27 Lactic Acid Level 1.2 Total Creatine Kinase 64 71 84 Troponin I LESS THAN 0.02 LESS THAN 0.02 LESS THAN 0.02 Lipase 108 Urine Color ANT Urine Turbidity SLIGHT Urine pH 5.5 Urine Specific [place] 1.032 Urine Protein TRACE Urine Glucose (UA) NEG Urine Ketones TRACE Urine Occult Blood NEG Urine Nitrite NEG Urine Bilirubin NEG Urine Leukocyte Esterase NEG Urine RBC 0-3 Urine WBC 3-5 Urine Squamous Epithelial Cells 0-5 Urine Calcium Oxalate Crystals MOD Urine Hyaline Casts 3-5 Microscopic Urinalysis Comment CULT NOT INDICATED Date/Time Source Procedure Growth Status 07/19/17 19:01 Nasal Aspirate Influenza Types A,B Antigen (CARLOS) - Final NEGATIVE FOR FLU A AND B ANTIGEN.... Complete Result Diagram: 07/19/17183907/19/171839 Imaging Last Impressions Chest X-Ray 07/19/17 0000 Signed Impressions: Service Date/Time: Wednesday, July 19, 2017 19:07 - CONCLUSION: 1. Mild cardiomegaly. Clear lungs. Cruz Barrett Jr., MD Abdomen/Pelvis CT 07/19/17 0000 Signed Impressions: Service Date/Time: Wednesday, July 19, 2017 20:19 - CONCLUSION: 1. No acute abnormality. 2. Prior cholecystectomy. 3. Prior granulomatous disease. Cruz Barrett Jr., MD Caprinmani VTE Risk Assessment Caprini VTE Risk Assessment: Mod/High Risk (score >= 2) Caprini Risk Assessment Model Point Value = 1 Point Value = 2 Point Value = 3 Point Value = 5 Age 41-60 Minor surgery BMI > 25 kg/m2 Swollen legs Varicose veins or History of unexplained or recurrent spontaneous Oral contraceptives or hormone replacement Sepsis (< 1 month) Serious lung disease, including pneumonia (< 1 month) Abnormal pulmonary function Acute myocardial infarction Congestive heart failure (< 1 month) History of inflammatory bowel disease Medical patient at bed rest Age 61-74 Arthroscopic surgery Major open surgery (> 45 min) Laparoscopic surgery (> 45 min) Malignancy Confined to bed (> 72 hours) Immobilizing plaster cast Central venous access Age >= 75 History of VTE Family history of VTE Factor V Leiden Prothrombin [id number] Lupus anticoagulant Anticardiolipin antibodies Elevated serum homocysteine Heparin-induced thrombocytopenia Other congenital or acquired thrombophilia Stroke (< 1 month) Elective arthroplasty Hip, pelvis, or leg fracture Acute spinal cord injury (< 1 month) Prophylaxis Regimen Total Risk Factor Score Risk Level Prophylaxis Regimen 0-1 Low Early ambulation 2 Moderate Order ONE of the following: *Sequential Compression Device (SCD) *Heparin 5000 units SQ BID 3-4 Higher Order ONE of the following medications: *Heparin 5000 units SQ TID *Enoxaparin/Lovenox 40 mg SQ daily (WT < 150 kg, CrCl > 30 mL/min) *Enoxaparin/Lovenox 30 mg SQ daily (WT < 150 kg, CrCl > 10-29 mL/min) *Enoxaparin/Lovenox 30 mg SQ BID (WT < 150 kg, CrCl > 30 mL/min) AND/OR *Sequential Compression Device (SCD) 5 or more Highest Order ONE of the following medications: *Heparin 5000 units SQ TID (Preferred with Epidurals) *Enoxaparin/Lovenox 40 mg SQ daily (WT < 150 kg, CrCl > 30 mL/min) *Enoxaparin/Lovenox 30 mg SQ daily (WT < 150 kg, CrCl > 10-29 mL/min) *Enoxaparin/Lovenox 30 mg SQ BID (WT < 150 kg, CrCl > 30 mL/min) AND *Sequential Compression Device (SCD) Assessment and Plan Assessment and Plan Generalized myalgia, fatigue, pharyngitis, cough, congestion, nausea Likely viral etiology, adenovirus Influenza testing was negative Rapid strep screen was negative Symptomatic treatment Hypertension, hyperlipidemia, coronary artery disease, history myocardial infarction, atrial fibrillation Presenting symptoms possible angina variant Serial cardiac enzymes have been performed which do not indicate any acute changes to represent acute coronary event EKG showed atrial fibrillation with RVR. Right bundle branch block without any signs of ischemia Patient deferring any cardiac stress testing at this time Patient's home medications have been continued to include aspirin, metoprolol , Plavix, Norvasc, Imdur, Ranexa Diabetes Accu-Cheks with sliding scale insulin Hypothyroidism Replacement therapy has been continued Chronic kidney disease stage III Continue monitor renal function Avoid nephrotoxins DVT prevention Subcutaneous heparin Discharge disposition Discharge home in stable condition Activity: Ad lenny. Diet: Healthy heart diet/diabetic diet Medications per medication reconciliation Follow-up with primary medical doctor in one week Problem Qualifiers (1) Pharyngitis: Qualified Codes: J02.9 - Acute pharyngitis, unspecified Severino Castillo Jul 20, 2017 09:28
[2017-07-20] MEDS ORDERED: GLUCAGON 1 MG/ML VIAL OTHER PRN (09:30)
[2017-07-20] MEDS ORDERED: DEXTROSE 50% IN WATER 50 ML VIAL(D50) IV PUSH PRN (09:30)
[2017-07-20] MEDS ORDERED: GABAPENTIN 300 MG CAP PO SCH (10:00)
[2017-07-20] MEDS ORDERED: HEPARIN SODIUM - SQ 10,000 UNITS/ML VIAL SQ SCH (10:00)
[2017-07-20] MEDS ORDERED: [UNRECOGNIZED DRUG - OTHER] BUCCAL (11:57)
--- NOTE | 2017-07-20 11:58 | HHI.DCPOC ---
Discharge Care Plan Diagnosis: (1) Body aches (2) Pharyngitis Goals to Promote Your Health * To prevent worsening of your condition and complications * To maintain your health at the optimal level Directions to Meet Your Goals Take your medications as prescribed Follow your dietary instruction Follow activity as directed Keep your appointments as scheduled Take your immunizations and boosters as scheduled If your symptoms worsen call your PCP, if no PCP go to Urgent Care Center or Emergency Room Smoking is Dangerous to Your Health. Avoid second hand smoke Call the 24-hour hour crisis hotline for domestic abuse at Severino Castillo Jul 20, 2017 11:58
[2017-07-20] MEDS ORDERED: BENZOCAINE 6 MG/MENTHOL 10 MG LOZENGE BUCCAL PRN (12:00)
[2017-07-20] MEDS: INSULIN ASPART SUPPLEMENTAL SCALE SQ SCH ×2 (12:00→17:00)
--- NOTE | 2017-07-20 12:00 | HHI.FF ---
Face to Face Verification Diagnosis: (1) Physical deconditioning (2) Chronic hypoxemic respiratory failure (3) Body aches Physical Therapy Order: Evaluate and Treat, Improve ambulation, Strength and gait training Home Health Nursing Order: Medical education Oxygen administration education Nursing assessment with vital signs I have seen patient Sarah Chino on 07/20/17. My clinical findings support the need for the requested home health care services because: Deconditioned w/ increased weakness I certify that my clinical findings support that this patient is homebound because: Hx COPD- exertion dyspnea/weakness Unsteady gait/balance Severino Castillo Jul 20, 2017 12:00
--- NOTE | 2017-07-20 12:48 | EKG ---
Date Performed: 07/19/2017 Time Performed: 21:59:44 PTAGE: 82 years EKG: PROBABLY ATRIAL FIBRILLATION WITH BASELINE ARTIFACT. OTHER EKGS SHOW ATRIAL FIBRILLATION MA RKED RIGHT AXIS DEVIATION RIGHT BUNDLE BRANCH BLOCK ABNORMAL ECG Since PREVIOUS TRACING , no significant change noted PREVIOUS TRACIN06/02/2017 13.59 DOCTOR: Amado Horta Interpretating Date/Time 07/20/2017 12:46:26
--- NOTE | 2017-07-20 12:49 | EKG ---
Date Performed: 07/20/2017 Time Performed: 01:17:08 PTAGE: 82 years EKG: PROBABLY ATRIAL FIBRILLATION (THOUGH BASELINE ARTIFACT PRECLUDES PRECISE DIAGNOSIS) MARKED RIGHT AXIS DEVIATION RIGHT BUNDLE BRANCH BLOCK ST DEPRESSION, CONSIDER SUBENDOCARDIAL INJURY ABNORMAL ECG Likely no significant change from prior. PREVIOUS TRACING : 07/19/2017 21.59 DOCTOR: Amado Horta Interpretating Date/Time 07/20/2017 12:48:12
[2017-07-20] MEDS ORDERED: OXYGENDME NAS.CANULA (15:54)
[2017-07-21] MEDS ORDERED: LEVOTHYROXINE SODIUM 50 MCG TAB PO SCH (06:00)
== END 2017-07-20 18:17 | disposition home or self-care (01) ==
LOC: PHED 18:11 → PHEDA 22:06 → PH3A 23:24
PROVIDERS: ADMIT Hospitalist; ATTEND Hospitalist
DX: R07.9 Chest pain, unspecified (principal); M79.1 Myalgia; J02.9 Acute pharyngitis, unspecified; I13.0 Hypertensive heart and chronic kidney disease with heart failure and stage 1 through stage 4 chronic kidney disease, or unspecified chronic kidney disease; I50.32 Chronic diastolic (congestive) heart failure; N18.3 Chronic kidney disease, stage 3 (moderate); E11.22 Type 2 diabetes mellitus with diabetic chronic kidney disease; E78.5 Hyperlipidemia, unspecified; E03.9 Hypothyroidism, unspecified; G20 Parkinson's disease; I25.10 Atherosclerotic heart disease of native coronary artery without angina pectoris; I25.2 Old myocardial infarction; I48.91 Unspecified atrial fibrillation; I45.10 Unspecified right bundle-branch block; J44.9 Chronic obstructive pulmonary disease, unspecified; K21.9 Gastro-esophageal reflux disease without esophagitis; K59.00 Constipation, unspecified; Z95.1 Presence of aortocoronary bypass graft; F17.210 Nicotine dependence, cigarettes, uncomplicated; Z95.5 Presence of coronary angioplasty implant and graft; Z86.73 Personal history of transient ischemic attack (TIA), and cerebral infarction without residual deficits; Z90.49 Acquired absence of other specified parts of digestive tract
CPT/HCPCS: 71046; 74176; 80053; 81001; 82550; 82948; 83605; 83690; 84484; 85025; 87081; 87804; 87880; 93005; 94664; 96374; 97162; 99285; G0378; G8987; G8988; J2405; Q9963

== ENCOUNTER 2018-06-18 12:23 | Observation (INO) ==
--- NOTE | 2018-06-18 12:38 | ED ---
HPI General Chief Complaint: Chest Pain Stated Complaint: Chest Pain Time Seen by Provider: 06/18/18 12:35 Source: patient and EMS Mode of arrival: EMS Limitations: no limitations History of Present Illness HPI narrative: 83-year old female patient with history of LA, CAD status post CABG, hypertension, follows up with Dr. Shelley, presents to the ER today for left-sided chest discomfort which she states is nonradiating, had taken her nitroglycerin, was given aspirin by EMS, and she states is now resolved. She reports some shortness of breath. Nausea was noted as well. No vomiting, diarrhea, fevers, or any other symptoms. Modifying Factors: None Associated Signs & Symptoms: Chest pains, Risk Factors: Cardiac history Related Data Previous Rx's Medication Instructions Recorded levofloxacin [Levaquin] 500 mg PO DAILY 7 Days #7 tab 06/15/18 Allergies Allergy/AdvReac Type Severity Reaction Status Date / Time diatrizoate meglumine Allergy Severe Anaphylaxis Verified 06/18/18 12:32 erythromycin base Allergy Severe RASH Verified 06/18/18 12:32 gadobenic acid Allergy Severe Anaphylaxis Verified 06/18/18 12:32 gadodiamide Allergy Severe Anaphylaxis Verified 06/18/18 12:32 gadoteridol Allergy Severe Anaphylaxis Verified 06/18/18 12:32 iodixanol Allergy Severe Anaphylaxis Verified 06/18/18 12:32 iohexol Allergy Severe Anaphylaxis Verified 06/18/18 12:32 ferrous fumarate Allergy Intermediate RASH Verified 06/18/18 12:32 ferrous sulfate Allergy Intermediate RASH Verified 06/18/18 12:32 ferumoxytol Allergy Intermediate RASH Verified 06/18/18 12:32 iron Allergy Intermediate RASH Verified 06/18/18 12:33 multivitamin infusion, adult Allergy Intermediate RASH Verified 06/18/18 12:33 no.4 with vitamin K multivitamin with iron,other Allergy Intermediate RASH Verified 06/18/18 12:33 minerals Review of Systems ROS: all other systems reviewed are negative PMFSH History History Provided By: Patient Medical History Medical History Diabetes mellitus (Acute) History of CHF (congestive heart failure) (Acute) History of COPD (Acute) History of CVA (cerebrovascular accident) (Acute) History of atrial fibrillation (Acute) Hypertension (Acute) Parkinson disease (Acute) Surgical History Surgical History History of cholecystectomy (Acute) History of coronary artery bypass graft (Acute) History of open heart surgery (Acute) S/P appendectomy (Acute) Social History Social History Substance History: No History of Abuse Smoking Status: Former smoker How Often Do You Have a Drink Containing Alcohol: Never Recent Travel in [facility] within the Last 8 Weeks: No Recent Out of Country Travel within the Last 8 Weeks: No Exam Narrative Exam Narrative: GENERAL: Well-developed elderly obese female patient currently in mild distress. Awake and oriented x3. SKIN: Focused skin assessment warm/dry. HEAD: Atraumatic. Normocephalic. EYES: Pupils equal and round. No scleral icterus. No injection or drainage. ENT: No nasal bleeding or discharge. Mucous membranes pink and moist. NECK: Trachea midline. No JVD. CARDIOVASCULAR: Regular rate and rhythm. No murmur appreciated. RESPIRATORY: No accessory muscle use. Clear to auscultation. Breath sounds equal bilaterally. GASTROINTESTINAL: Abdomen soft, non-tender, nondistended. Hepatic and splenic margins not palpable. MUSCULOSKELETAL: No obvious deformities. No clubbing. No cyanosis. No edema. NEUROLOGICAL: Awake and alert. No obvious cranial nerve deficits. Motor grossly within normal limits. Normal speech. PSYCHIATRIC: Appropriate mood and affect; insight and judgment normal. Course Initial Documented Vital Signs Temperature 98.1 F 06/18/18 12:28 Pulse Rate 75 06/18/18 12:28 Respiratory Rate 18 06/18/18 12:28 Blood Pressure 147/83 H 06/18/18 12:28 Pulse Oximetry 98 06/18/18 12:28 Last Documented Vital Signs Temperature 98.1 F 06/18/18 12:28 Pulse Rate 61 06/18/18 12:47 Respiratory Rate 18 06/18/18 12:28 Blood Pressure 147/83 H 06/18/18 12:28 Pulse Oximetry 95 06/18/18 12:47 Medical Decision Making MDM Narrative Medical decision making narrative: Lab work and workup was fairly unremarkable. Considering her history, at this point my plan would be to admit the patient for further cardiac evaluation. Case is discussed with cardiology of GI on- call Dr. Myers and he would like me to admit the patient for chest pain center for further evaluation. patient is now chest pain-free on reevaluation at 3 PM. Medical Screen Exam Complete: Yes Emergency Medical Condition: Yes Differential Diagnosis Differential Diagnosis: Unstable angina versus ACS versus dysrhythmias versus electrolyte abnormalities Lab Data Lab results reviewed: Yes I reviewed the patient's lab results. Result diagrams: 06/18/18 12:40 06/18/18 12:40 Lab Results 06/18/18 06/18/18 06/18/18 Range/Units 12:40 12:40 12:40 WBC 6.0 (4.0-11.0) th/mm3 RBC 4.11 (4.00-5.30) mil/mm3 Hgb 12.7 (11.6-15.3) gm/dL Hct 37.2 (35.0-46.0) % MCV 90.4 (80.0-100.0) fL MCH 30.9 (27.0-34.0) pg MCHC 34.2 (32.0-36.0) % RDW 13.8 (11.6-17.2) % Plt Count 126 L (150-450) th/mm3 MPV 10.1 (7.0-11.0) fL Neut % (Auto) 66.5 (16.0-70.0) % Lymph % (Auto) 20.6 (9.0-44.0) % Tate % (Auto) 10.0 H (0.0-8.0) % Eos % (Auto) 2.4 (0.0-4.0) % Baso % (Auto) 0.5 (0.0-2.0) % Neut # (Auto) 4.0 (1.8-7.7) th/mm3 Lymph # (Auto) 1.2 (1.0-4.8) th/mm3 Tate # (Auto) 0.6 (0.0-0.9) th/mm3 Eos # (Auto) 0.1 (0.0-0.4) th/mm3 Baso # (Auto) 0.0 (0.0-0.2) th/mm3 WBC Differential . Differential Comment Auto diff final PT 11.9 H (9.8-11.6) sec INR 1.2 Ratio APTT 26.8 (23.4-31.7) sec Sodium 139 (136-145) meq/L Potassium 4.5 (3.5-5.1) meq/L Chloride 104 (98-107) meq/L Carbon Dioxide 28.7 (21.0-32.0) meq/L Anion Gap 6 (5-15) meq/L BUN 20 H (7-18) mg/dL Creatinine 1.46 H (0.50-1.00) mg/dL Estimated GFR 34 L (>89) mL/min Random Glucose 124 H (74-106) mg/dL Calcium 8.3 L (8.5-10.1) mg/dL Total Bilirubin 0.7 (0.2-1.0) mg/dL AST 18 (15-37) U/L ALT 15 (10-53) U/L Alkaline Phosphatase 65 (45-117) U/L Troponin I Less than 0.02 L (0.02-0.05) ng/mL B-Natriuretic Peptide (0-100) pg/mL Total Protein 7.6 (6.4-8.2) g/dL Albumin 3.7 (3.4-5.0) g/dL Lipase 170 (73-393) U/L 18 Range/Units 12:40 WBC (4.0-11.0) th/mm3 RBC (4.00-5.30) mil/mm3 Hgb (11.6-15.3) gm/dL Hct (35.0-46.0) % MCV (80.0-100.0) fL MCH (27.0-34.0) pg MCHC (32.0-36.0) % RDW (11.6-17.2) % Plt Count (150-450) th/mm3 MPV (7.0-11.0) fL Neut % (Auto) (16.0-70.0) % Lymph % (Auto) (9.0-44.0) % Tate % (Auto) (0.0-8.0) % Eos % (Auto) (0.0-4.0) % Baso % (Auto) (0.0-2.0) % Neut # (Auto) (1.8-7.7) th/mm3 Lymph # (Auto) (1.0-4.8) th/mm3 Tate # (Auto) (0.0-0.9) th/mm3 Eos # (Auto) (0.0-0.4) th/mm3 Baso # (Auto) (0.0-0.2) th/mm3 WBC Differential Differential Comment PT (9.8-11.6) sec INR Ratio APTT (23.4-31.7) sec Sodium (136-145) meq/L Potassium (3.5-5.1) meq/L Chloride (98-107) meq/L Carbon Dioxide (21.0-32.0) meq/L Anion Gap (5-15) meq/L BUN (7-18) mg/dL Creatinine (0.50-1.00) mg/dL Estimated GFR (>89) mL/min Random Glucose (74-106) mg/dL Calcium (8.5-10.1) mg/dL Total Bilirubin (0.2-1.0) mg/dL AST (15-37) U/L ALT (10-53) U/L Alkaline Phosphatase (45-117) U/L Troponin I (0.02-0.05) ng/mL B-Natriuretic Peptide 96 (0-100) pg/mL Total Protein (6.4-8.2) g/dL Albumin (3.4-5.0) g/dL Lipase (73-393) U/L Imaging Data Attestation: I personally reviewed and interpreted this imaging study as follows : Radiologist's impression: Chest X-Ray 06/18/18 12:35 CONCLUSION: 1. Cardiomegaly. 2. No pulmonary edema or focal infiltrate. ECG Data Attestation: I personally reviewed and interpreted this ECG as follows: Interpretation: EKG shows A. fib at a rate of 75 bpm. No signs of acute ST elevations or depressions. There is a right bundle branch block pattern. Discharge Plan Discharge Disposition Patient Disposition: ED Admit(ED Internal Use Only) Discharge Condition Condition: Stable Discharge Order Discharge Orders: ED Use Only Admit Order (Routine); Ordered 06/18/18 Ordered By: Ld Gloria Discharge Details Anticipated Discharge Date: 06/18/18 Diagnosis: Chest pain Physicians Team ED Provider: Ld Gloria Primary Care Provider: Nathaniel Jones Rxs /Orders / Referrals /Forms Prescriptions: No Action levofloxacin [Levaquin] 500 mg tablet 500 mg PO DAILY 7 Days Qty: 7 RF: 0 Discharge Instructions Patient Printed Instructions: Chest Pain (ED) Status ED Status: With Doctor
[2018-06-18 12:54] LABS: Baso % (Auto) 0.5 % (0.0-2.0); Eos # (Auto) 0.1 th/mm3 (0.0-0.4); Eos % (Auto) 2.4 % (0.0-4.0); Hematocrit 37.2 % (35.0-46.0); Hemoglobin 12.7 gm/dL (11.6-15.3); Lymph # (Auto) 1.2 th/mm3 (1.0-4.8); Lymph % (Auto) 20.6 % (9.0-44.0); Mean Corpuscular HGB Conc 34.2 % (32.0-36.0); Mean Corpuscular Hemoglobin 30.9 pg (27.0-34.0); Mean Corpuscular Volume 90.4 fL (80.0-100.0); Mean Platelet Volume 10.1 fL (7.0-11.0); Mono # (Auto) 0.6 th/mm3 (0.0-0.9); Neut % (Auto) 66.5 % (16.0-70.0); Platelet Count 126 th/mm3 (150-450); Red Blood Count 4.11 mil/mm3 (4.00-5.30); Red Cell Distribution Width 13.8 % (11.6-17.2)
--- NOTE | 2018-06-18 13:02 | XR ---
EXAM DATE: 06/18/2018 12:59 PM EST AGE/SEX: 83 years / Female INDICATIONS: Chest pain and nausea. CLINICAL DATA: This is the patient's sequela encounter. Patient reports that signs and symptoms have been present for 4 - 6 days and indicates a pain score of 8/10. MEDICAL/SURGICAL HISTORY: . Diabetes mellitus type 2. Parkinsons. Gastroesophageal reflux disea se.CHF, COPD, asthma, tuberculosis. CABG. COMPARISON: [facility], CHEST 1V SINGLE AP, 06/15/2018. . FINDINGS: Median sternotomy wires are noted status post cardiac surgery. The heart is enlarged. The pulmonary v ascular pattern is normal. The lungs are clear. CONCLUSION: 1. Cardiomegaly. 2. No pulmonary edema or focal infiltrate. Electronically signed by: Ayaan Summers MD Board Certified Radiologist 06/18/2018 1:01 PM EST
[2018-06-18 13:06] LABS: Activated Partial Thrombo Time 26.8 sec (23.4-31.7); INR 1.2 Ratio; Prothrombin Time 11.9 sec (9.8-11.6)
[2018-06-18 13:16] LABS: Alanine Aminotransferase 15 U/L (10-53); Albumin 3.7 g/dL (3.4-5.0); Alkaline Phosphatase 65 U/L (45-117); Anion Gap 6 meq/L (5-15); Aspartate Aminotransferase 18 U/L (15-37); Blood Urea Nitrogen 20 mg/dL (7-18); Calcium 8.3 mg/dL (8.5-10.1); Carbon Dioxide 28.7 meq/L (21.0-32.0); Chloride 104 meq/L (98-107); Glomerular Filtration Rate 34 mL/min (>89); Glucose,Random 124 mg/dL (74-106); Lipase 170 U/L (73-393); Potassium 4.5 meq/L (3.5-5.1); Sodium 139 meq/L (136-145); Total Protein 7.6 g/dL (6.4-8.2)
[2018-06-18] MEDS ORDERED: Acetaminophen 500 MG Tablet PO PRN (15:55)
--- NOTE | 2018-06-18 16:46 | P.HPCA ---
History of Present Illness Primary Care Physician: Nathaniel Jones Chief Complaint: Chest pain History of Present Illness: 83 year old female with history of CAD, CABG, hypertension, diabetes, atrial fibrillation, COPD, O2 dependent, diastolic congestive heart failure, and Parkinson's disease presents emergency room for further evaluation of nonexertional chest pain. Onset 1000. Comfort awakened her from sleep. Location left anterior chest. Unable to characterize. No radiation. Associated symptoms included nausea x1 nonbloody emesis. Denied dyspnea or diaphoresis. No precipitating or relieving factors. Took nitro sublingual x1 dose experienced mild relief of discomfort. Denies similar pain in the past and does not remind her of past cardiac pain. Follows with Dr. Shelley, no recent cardiac testing. Currently taking Levaquin for reported for UTI started on 06/15. No fever, chills, cough, dysuria, or injury. Uncertain of home medications , states "I take at least 17 different pills." Of note, patient originally told me her son didn't like the way she looked so he brought her to ER. Before going to hospital, she went to the bathroom and at that time developed left anterior chest pain and nausea. No current chest pain. Past cardiac testing [employer] Dr. Shelley. Most recent stress test reported to be normal in either January or March 2017. 08/17/2010 Cardiac catheterization (Dr. Shelley) Conclusions-moderate left ventricular disc function with triple-vessel disease, as detailed above. Recommendations-medical management at this point in time. The patient had multiple bypass operations and multiple coronary interventions. 04/15/2009 Cardiac catheterization (Dr. Horta and Dr. Alejo) Conclusion 1. Difficult in-stent restenosis of [place] LAD. 2. Patent graft to obtuse marginal. 3. Poor visualization of MICHELLE to the LAD. 09/23/2008 CABG REDO (Dr. Gutierrez) Redo coronary artery bypass grafting x3 with MICHELLE to the distal LAD, aorto SVG to the obtuse marginal artery, and SVG patch angioplasty at the distal SV diagonal graft, extending into the diagonal artery across the anastomosis 02/21/2007 CABG x4 (Dr. Gutierrez) Coronary artery bypass grafting surgery x4 consisting of left internal mammary artery, left anterior descending artery; aorta Y saphenous vein graft, the diagonal and the obtuse marginal artery; aorta saphenous vein graft and the distal right coronary artery. Social history Known CAD, hypertension, diabetes, or hyperlipidemia. Remote smoker, quit 50 years ago. - Diagnosis (1) Chest pain of uncertain etiology (2) CAD (coronary artery disease) (3) Hypertension (4) Parkinson disease (5) CKD (chronic kidney disease) (6) UTI (urinary tract infection) (7) A-fib Review of Systems All other systems reviewed negative except as stated in HPI Skin/Breast: Reports lesions Comments: Reports longstanding history of multiple lesions all over body, reports chronic problem and has been evaluated by dermatology in the past. [facility] - History History Provided By: Patient - Medical History Medical History: Medical History (Last Updated 06/18/18 @ 17:18 by MELISSA Benedict) Bone sarcoma (Acute) Anemia Chronic kidney disease, stage 3 Coronary artery disease Degenerative joint disease O2 dependent Diabetes mellitus History of CHF (congestive heart failure) History of COPD History of CVA (cerebrovascular accident) History of atrial fibrillation Hypertension Parkinson disease - Surgical History Surgical History: Surgical History (Last Updated 06/18/18 @ 17:16 by MELISSA Benedict) History of heart artery stent History of cholecystectomy History of coronary artery bypass graft History of open heart surgery S/P appendectomy - Family History Family History: Family History (Last Updated 06/18/18 @ 17:19 by MELISSA Benedict) Father Myocardial infarction Mother Diabetes - Social History I have reviewed the patient's Social History: Yes - Tobacco History Tobacco Use In Past 30 Days: No Smoking Status: Former smoker (Quit 50 years ago.) - Alcohol History How Often Do You Have a Drink Containing Alcohol: Never - Substance Use History Substance History: No History of Abuse - Travel History History of Recent Travel: No Recent Travel in the [place] Within the Last 8 Weeks: No Recent Travel Out of the Country Within the Last 8 Weeks: No - Immunization History Tetanus Immunization: >5 Years Medications and Allergies Active Medications: Active Medications Acetaminophen (Tylenol) 500 mg PO Q4H PRN PRN Reason: HEADACHE Nitroglycerin (Nitrostat Sl) 0.4 mg SL Q5M PRN PRN Reason: CHEST PAIN Ondansetron HCl (Zofran Inj) 4 mg IV.PUSH Q6H PRN PRN Reason: NAUSEA Sodium Chloride (Ns Flush) 2 ml IV.FLUSH UNSCH PRN PRN Reason: FLUSH AFTER USING IV ACCESS Sodium Chloride (Ns Flush) 2 ml IV.FLUSH BID NATALY Allergies Allergy/AdvReac Type Severity Reaction Status Date / Time diatrizoate meglumine Allergy Severe Anaphylaxis Verified 06/18/18 12:32 erythromycin base Allergy Severe RASH Verified 06/18/18 12:32 gadobenic acid Allergy Severe Anaphylaxis Verified 06/18/18 12:32 gadodiamide Allergy Severe Anaphylaxis Verified 06/18/18 12:32 gadoteridol Allergy Severe Anaphylaxis Verified 06/18/18 12:32 iodixanol Allergy Severe Anaphylaxis Verified 06/18/18 12:32 iohexol Allergy Severe Anaphylaxis Verified 06/18/18 12:32 ferrous fumarate Allergy Intermediate RASH Verified 06/18/18 12:32 ferrous sulfate Allergy Intermediate RASH Verified 06/18/18 12:32 ferumoxytol Allergy Intermediate RASH Verified 06/18/18 12:32 iron Allergy Intermediate RASH Verified 06/18/18 12:33 multivitamin infusion, adult Allergy Intermediate RASH Verified 06/18/18 12:33 no.4 with vitamin K multivitamin with iron,other Allergy Intermediate RASH Verified 06/18/18 12:33 minerals Home Medications Medication Instructions Recorded Confirmed Type alprazolam 0.25 mg PO BID 06/18/18 06/18/18 History carbidopa-levodopa 1 tab PO TID 06/18/18 06/18/18 History clopidogrel 75 mg PO DAILY 06/18/18 06/18/18 History duloxetine 30 mg PO DAILY 06/18/18 06/18/18 History duloxetine 30 mg PO DAILY 06/18/18 06/18/18 History fluticasone-vilanterol [Breo 1 inh INHALATION DAILY 06/18/18 06/18/18 History Ellipta] furosemide 40 mg PO BID 06/18/18 06/18/18 History gabapentin 300 mg PO TID 06/18/18 06/18/18 History glimepiride 2 mg PO QAM 06/18/18 06/18/18 History hydrocodone-acetaminophen 1 tab PO Q4H PRN 06/18/18 06/18/18 History isosorbide mononitrate 120 mg PO QAM 06/18/18 06/18/18 History levothyroxine 50 mcg PO DAILY 06/18/18 06/18/18 History losartan 50 mg PO DAILY 06/18/18 06/18/18 History metoprolol tartrate 25 mg PO BID 06/18/18 06/18/18 History morphine 15 mg PO HS 06/18/18 06/18/18 History nystatin 1 applic TOPICAL BID 06/18/18 06/18/18 History pantoprazole 40 mg PO DAILY 06/18/18 06/18/18 History potassium chloride 20 meq PO DAILY 06/18/18 06/18/18 History ranolazine [Ranexa] 500 mg PO BID 06/18/18 06/18/18 History sitagliptin [Januvia] 100 mg PO DAILY 06/18/18 06/18/18 History Exam Vital signs: Vital Signs 06/18/18 12:28 06/18/18 12:47 06/18/18 15:50 Temperature 98.1 F Pulse Rate 75 61 57 L Respiratory Rate 18 18 Blood Pressure 147/83 H 164/92 H Pulse Oximetry 98 95 99 Intake & Output 06/17/18 06/18/18 06/18/18 18:59 06:59 18:59 Weight 122.47 kg Narrative: GENERAL: Alert WN, WD, NAD, pleasant, obese, elderly this will-year- old female appears chronically ill HEAD: NC, AT EYES: Sclera clear, conjunctiva without injection, pupils equal and round ENT: Mucous membranes pink and moist, no nasal discharge or bleeding NECK: Supple, no masses, trachea midline CV: Irregularly irregular, distant heart tones, without murmur, rub, or gallop. RESP: Diminished lungs throughout bilateral, crackles right base, no wheeze or rhonchi, symmetrical chest rise, nonlabored, able to speak in full sentences, nasal canula in use ABD: Soft, NT, ND, no masses, positive bowel tones EXT: Pulses +1x4, no dependent edema, involuntary bilateral upper extremities faint tremor MS: Normal tone x4 extremities, right foot weaker than left, slight right foot drop, full range of motion NEURO: Motor strength weaker right lower extremities PSYCH: A+O x3, pleasant affect, appropriate speech, mood, insight and judgment, at times poor historian SKIN: Normal turgor, normal texture, brisk cap refill, decreased hair distribution, multiple small lesions in different stages of healing all extremities, truck, and head. Multiple scarred areas as well. Right lower extremity bandage in place, reportedly from open lesion. Results 06/18/18 12:40 06/18/18 12:40 Cardiac Enzymes 06/18/18 06/18/18 Range/Units 12:40 12:40 AST 18 (15-37) U/L Troponin I Less than 0.02 L (0.02-0.05) ng/mL B-Natriuretic Peptide 96 (0-100) pg/mL Coagulation 06/18/18 06/18/18 Range/Units 12:40 12:40 PT 11.9 H (9.8-11.6) sec APTT 26.8 (23.4-31.7) sec B-Natriuretic Peptide 96 (0-100) pg/mL CBC 06/18/18 Range/Units 12:40 WBC 6.0 (4.0-11.0) th/mm3 RBC 4.11 (4.00-5.30) mil/mm3 Hgb 12.7 (11.6-15.3) gm/dL Hct 37.2 (35.0-46.0) % Plt Count 126 L (150-450) th/mm3 Neut # (Auto) 4.0 (1.8-7.7) th/mm3 Lymph # (Auto) 1.2 (1.0-4.8) th/mm3 [place] # (Auto) 0.6 (0.0-0.9) th/mm3 Eos # (Auto) 0.1 (0.0-0.4) th/mm3 Baso # (Auto) 0.0 (0.0-0.2) th/mm3 Comprehensive Metabolic Panel 06/18/18 Range/Units 12:40 Sodium 139 (136-145) meq/L Potassium 4.5 (3.5-5.1) meq/L Chloride 104 (98-107) meq/L Carbon Dioxide 28.7 (21.0-32.0) meq/L BUN 20 H (7-18) mg/dL Creatinine 1.46 H (0.50-1.00) mg/dL Calcium 8.3 L (8.5-10.1) mg/dL AST 18 (15-37) U/L ALT 15 (10-53) U/L Alkaline Phosphatase 65 (45-117) U/L Total Protein 7.6 (6.4-8.2) g/dL Albumin 3.7 (3.4-5.0) g/dL Intake and Output 06/18/18 06/18/18 06/18/18 06:59 14:59 22:59 Other: Weight 122.47 kg Patient Weight 06/19/18 06:59 Weight 122.47 kg - Imaging and Cardiology Imaging: Impressions Chest X-Ray 06/18/18 12:35 CONCLUSION: 1. Cardiomegaly. 2. No pulmonary edema or focal infiltrate. EKG interpretations - Dysrhythmias Supraventricular dysrhythmia: atrial fibrillation (Right axis deviation, right bundle branch block) Caprini VTE Risk Assessment Caprini VTE Risk Assessment: Moderate/High Risk (score >= 2) Caprini Risk Assessment Model: Point Value = 1 Point Value = 2 Point Value = 3 Point Value = 5 Age 41-60 Minor surgery BMI > 25 kg/m2 Swollen legs Varicose veins or History of unexplained or recurrent spontaneous Oral contraceptives or hormone replacement Sepsis (< 1 month) Serious lung disease, including pneumonia (< 1 month) Abnormal pulmonary function Acute myocardial infarction Congestive heart failure (< 1 month) History of inflammatory bowel disease Medical patient at bed rest Age 61-74 Arthroscopic surgery Major open surgery (> 45 min) Laparoscopic surgery (> 45 min) Malignancy Confined to bed (> 72 hours) Immobilizing plaster cast Central venous access Age >= 75 History of VTE Family history of VTE Factor V Leiden Prothrombin [id number] Lupus anticoagulant Anticardiolipin antibodies Elevated serum homocysteine Heparin-induced thrombocytopenia Other congenital or acquired thrombophilia Stroke (< 1 month) Elective arthroplasty Hip, pelvis, or leg fracture Acute spinal cord injury (< 1 month) Prophylaxis Regimen: Total Risk Factor Score Risk Level Prophylaxis Regimen 0-1 Low Early ambulation 2 Moderate Order ONE of the following: *Sequential Compression Device (SCD) *Heparin 5000 units SQ BID 3-4 Higher Order ONE of the following medications: *Heparin 5000 units SQ TID *Enoxaparin/Lovenox 40 mg SQ daily (WT < 150 kg, CrCl > 30 mL/min) *Enoxaparin/Lovenox 30 mg SQ daily (WT < 150 kg, CrCl > 10-29 mL/min) *Enoxaparin/Lovenox 30 mg SQ BID (WT < 150 kg, CrCl > 30 mL/min) AND/OR *Sequential Compression Device (SCD) 5 or more Highest Order ONE of the following medications: *Heparin 5000 units SQ TID (Preferred with Epidurals) *Enoxaparin/Lovenox 40 mg SQ daily (WT < 150 kg, CrCl > 30 mL/min) *Enoxaparin/Lovenox 30 mg SQ daily (WT < 150 kg, CrCl > 10-29 mL/min) *Enoxaparin/Lovenox 30 mg SQ BID (WT < 150 kg, CrCl > 30 mL/min) AND *Sequential Compression Device (SCD) Assessment and Plan - Assessment (1) Chest pain of uncertain etiology Code(s): R07.89 - Other chest pain Status: Acute Plan: Admitted to chest pain center. Monitor on telemetry overnight. Rule out ACS with 3 sets of EKGS and cardiac enzymes. Will be seen and evaluated by Dr. Adalberto Wilkerson in a.m.. Further disposition to follow. Patient and daughter agreeable to plan of care. (2) CAD (coronary artery disease) Code(s): I25.10 - Atherosclerotic heart disease of [place] coronary artery without angina pectoris Status: Chronic Plan: Continue Imdur, unclear if also taking Ranexa. (3) Hypertension Code(s): I10 - Essential (primary) hypertension Status: Chronic Plan: To monitor. Continue home medication once updated in home medication EMR. (4) Parkinson disease Code(s): G20 - Parkinson's disease Status: Chronic Plan: Continue home medication (5) CKD (chronic kidney disease) Code(s): N18.9 - Chronic kidney disease, unspecified Status: Chronic Plan: Follow-up with nephrology and primary care provider as previously instructed. (6) UTI (urinary tract infection) Code(s): N39.0 - Urinary tract infection, site not specified Status: Acute Plan: Continue Levaquin ordered 06/15/18. (7) A-fib Code(s): I48.91 - Unspecified atrial fibrillation Status: Acute (2) CAD (coronary artery disease) Qualifiers: Associated angina: angina presence unspecified (3) Hypertension Qualifiers: Hypertension type: unspecified Qualified Code(s): I10 - Essential (primary) hypertension (6) UTI (urinary tract infection) Qualifiers: Urinary tract infection type: site unspecified
[2018-06-18 17:27] LABS: Creatine Kinase 37 U/L (26-192)
[2018-06-18] MEDS ORDERED: Dextrose 50% in Water 50 ML Vial IV.PUSH PRN (17:40)
[2018-06-18] MEDS ORDERED: ISOSORBIDE MONONITRATE 120 MG PO SCH (17:45)
[2018-06-18] MEDS: Gabapentin 300 MG Capsule PO SCH (18:36)
[2018-06-18 20:03] LABS: Creatine Kinase 39 U/L (26-192)
[2018-06-18] MEDS: Insulin NovoLOG Aspart Correctional Sugar Inj SQ SCH (20:59)
[2018-06-18] MEDS: Metoprolol Tartrate 25 MG Tablet PO SCH (21:00)
[2018-06-19] MEDS ORDERED: Levothyroxine 50 MCG Tablet PO SCH (06:00)
[2018-06-19 07:53] VITALS: RESP 18; TEMP 97.4; O2SAT 97
[2018-06-19] MEDS: Gabapentin 300 MG Capsule PO SCH ×2 (08:04→15:17)
[2018-06-19] MEDS: Metoprolol Tartrate 25 MG Tablet PO SCH (08:04)
[2018-06-19] MEDS ORDERED: Isosorbide Mononitrate 60 MG ER 24HR Tablet (Imdur) PO SCH (09:00)
[2018-06-19] MEDS ORDERED: Furosemide 40 MG Tablet PO SCH (09:00)
[2018-06-19] MEDS ORDERED: Potassium Chloride 20 MEQ Pwd Pkt PO SCH (09:00)
[2018-06-19] MEDS ORDERED: Potassium Chloride 25 MEQ Effervescent Tablet PO SCH (09:00)
[2018-06-19] MEDS: Insulin NovoLOG Aspart Correctional Sugar Inj SQ SCH ×2 (09:45→15:17)
--- NOTE | 2018-06-19 10:51 | P.PNCA ---
Subjective Interval history: No further chest pain. Offers no complaints. Medications and Allergies Active Medications: Active Medications Acetaminophen (Tylenol) 500 mg PO Q4H PRN PRN Reason: HEADACHE Hydrocodone Bitart/Acetaminophen ([place]illager 10/325) 1 tab PO Q4H PRN PRN Reason: Acute Pain 1-10 Carbidopa/Levodopa (Sinemet 25/100 Mg) 1 tab PO TID [facility] Last Admin: 06/19/18 08:05 Dose: 1 tab Clopidogrel Bisulfate (Plavix) 75 mg PO DAILY [facility] Last Admin: 06/19/18 08:05 Dose: 75 mg Dextrose (D50w Vial) 50 ml IV.PUSH UNSCH PRN PRN Reason: PER HYPOGLYCEMIA PROTOCOL Duloxetine HCl (Cymbalta) 30 mg PO DAILY [facility] Last Admin: 06/19/18 08:05 Dose: 30 mg Fluticasone/Vilanterol (Breo Ellipta 200/25 Mcg Inh) 1 puff INH DAILY [facility] Last Admin: 06/19/18 08:04 Dose: 1 puff Furosemide (Lasix) 40 mg PO BID@0900,1800 [facility] Last Admin: 06/19/18 08:04 Dose: 40 mg Gabapentin (Neurontin) 300 mg PO TID [facility] Last Admin: 06/19/18 08:04 Dose: 300 mg Glucagon (Glucagon Inj) 1 mg OTHER PRN PRN PRN Reason: for Hypoglycemia Protocol Insulin Aspart (Novolog Insulin Correctional Sugar Inj) 0 unit SQ ACHS [facility]; Protocol Last Admin: 06/19/18 09:45 Dose: Not Given Isosorbide Mononitrate (Imdur) 120 mg PO DAILY [facility] Last Admin: 06/19/18 08:04 Dose: 120 mg Levothyroxine Sodium (Synthroid) 50 mcg PO 0600 [facility] Last Admin: 06/19/18 05:44 Dose: 50 mcg Losartan Potassium (Cozaar) 50 mg PO DAILY [facility] Last Admin: 06/19/18 08:05 Dose: 50 mg Metoprolol Tartrate (Lopressor) 25 mg PO BID [facility] Last Admin: 06/19/18 08:04 Dose: 25 mg Nitroglycerin (Nitrostat Sl) 0.4 mg SL Q5M PRN PRN Reason: CHEST PAIN Ondansetron HCl (Zofran Inj) 4 mg IV.PUSH Q6H PRN PRN Reason: NAUSEA Pantoprazole Sodium (Protonix) 40 mg PO DAILY [facility] Last Admin: 06/19/18 08:04 Dose: 40 mg Potassium Bicarb/Potassium Chloride (K-Lyte Cl Eff) 20 meq PO DAILY [facility] Last Admin: 06/19/18 08:04 Dose: 20 meq Sodium Chloride (Ns Flush) 2 ml IV.FLUSH UNSCH PRN PRN Reason: FLUSH AFTER USING IV ACCESS Sodium Chloride (Ns Flush) 2 ml IV.FLUSH BID [facility] Last Admin: 06/19/18 08:05 Dose: 2 ml Allergies Allergy/AdvReac Type Severity Reaction Status Date / Time diatrizoate meglumine Allergy Severe Anaphylaxis Verified 06/18/18 12:32 erythromycin base Allergy Severe RASH Verified 06/18/18 12:32 gadobenic acid Allergy Severe Anaphylaxis Verified 06/18/18 12:32 gadodiamide Allergy Severe Anaphylaxis Verified 06/18/18 12:32 gadoteridol Allergy Severe Anaphylaxis Verified 06/18/18 12:32 iodixanol Allergy Severe Anaphylaxis Verified 06/18/18 12:32 iohexol Allergy Severe Anaphylaxis Verified 06/18/18 12:32 ferrous fumarate Allergy Intermediate RASH Verified 06/18/18 12:32 ferrous sulfate Allergy Intermediate RASH Verified 06/18/18 12:32 ferumoxytol Allergy Intermediate RASH Verified 06/18/18 12:32 iron Allergy Intermediate RASH Verified 06/18/18 12:33 multivitamin infusion, adult Allergy Intermediate RASH Verified 06/18/18 12:33 no.4 with vitamin K multivitamin with iron,other Allergy Intermediate RASH Verified 06/18/18 12:33 minerals Home Medications Medication Instructions Recorded Confirmed Type alprazolam 0.25 mg PO BID 06/18/18 06/18/18 History carbidopa-levodopa 1 tab PO TID 06/18/18 06/18/18 History clopidogrel 75 mg PO DAILY 06/18/18 06/18/18 History duloxetine 30 mg PO DAILY 06/18/18 06/18/18 History duloxetine 30 mg PO DAILY 06/18/18 06/18/18 History fluticasone-vilanterol [Breo 1 inh INHALATION DAILY 06/18/18 06/18/18 History Ellipta] furosemide 40 mg PO BID 06/18/18 06/18/18 History gabapentin 300 mg PO TID 06/18/18 06/18/18 History glimepiride 2 mg PO QAM 06/18/18 06/18/18 History hydrocodone-acetaminophen 1 tab PO Q4H PRN 06/18/18 06/18/18 History isosorbide mononitrate 120 mg PO QAM 06/18/18 06/18/18 History levothyroxine 50 mcg PO DAILY 06/18/18 06/18/18 History losartan 50 mg PO DAILY 06/18/18 06/18/18 History metoprolol tartrate 25 mg PO BID 06/18/18 06/18/18 History morphine 15 mg PO HS 06/18/18 06/18/18 History nystatin 1 applic TOPICAL BID 06/18/18 06/18/18 History pantoprazole 40 mg PO DAILY 06/18/18 06/18/18 History potassium chloride 20 meq PO DAILY 06/18/18 06/18/18 History ranolazine [Ranexa] 500 mg PO BID 06/18/18 06/18/18 History sitagliptin [Januvia] 100 mg PO DAILY 06/18/18 06/18/18 History Physical Exam Vital signs: Vital Signs 06/18/18 12:28 06/18/18 12:47 06/18/18 15:50 Temperature 98.1 F Pulse Rate 75 61 57 L Respiratory Rate 18 18 Blood Pressure 147/83 H 164/92 H Pulse Oximetry 98 95 99 06/18/18 17:23 06/18/18 17:51 06/18/18 20:00 Temperature 97.5 F L 99.0 F Pulse Rate 195 H 75 64 Respiratory Rate 18 22 Blood Pressure 144/75 H 151/73 H Pulse Oximetry 94 L 99 06/18/18 22:45 06/18/18 23:31 06/18/18 23:50 Temperature 98.8 F Pulse Rate 74 Respiratory Rate 20 Blood Pressure 218/102 H 158/78 H Pulse Oximetry 99 96 06/19/18 03:51 06/19/18 07:52 Temperature 98.4 F 97.4 F L Pulse Rate 65 67 Respiratory Rate 20 18 Blood Pressure 161/67 H 143/68 H Pulse Oximetry 98 97 Intake & Output 06/18/18 06/19/18 06/19/18 18:59 06:59 18:59 Weight 122.47 kg 122.47 kg Other: # Voids 1 Weight On Admission 122.47 kg Narrative: Morbidly obese elderly female easily awakens from sleep. Results 06/18/18 12:40 06/18/18 12:40 Cardiac Enzymes 06/18/18 06/18/18 06/18/18 Range/Units 12:40 12:40 16:26 AST 18 (15-37) U/L Troponin I Less than 0.02 L Less than 0.02 L (0.02-0.05) ng/mL B-Natriuretic Peptide 96 (0-100) pg/mL 06/18/18 Range/Units 19:30 AST (15-37) U/L Troponin I Less than 0.02 L (0.02-0.05) ng/mL B-Natriuretic Peptide (0-100) pg/mL Coagulation 06/18/18 06/18/18 Range/Units 12:40 12:40 PT 11.9 H (9.8-11.6) sec APTT 26.8 (23.4-31.7) sec B-Natriuretic Peptide 96 (0-100) pg/mL CBC 06/18/18 Range/Units 12:40 WBC 6.0 (4.0-11.0) th/mm3 RBC 4.11 (4.00-5.30) mil/mm3 Hgb 12.7 (11.6-15.3) gm/dL Hct 37.2 (35.0-46.0) % Plt Count 126 L (150-450) th/mm3 Neut # (Auto) 4.0 (1.8-7.7) th/mm3 Lymph # (Auto) 1.2 (1.0-4.8) th/mm3 [place] # (Auto) 0.6 (0.0-0.9) th/mm3 Eos # (Auto) 0.1 (0.0-0.4) th/mm3 Baso # (Auto) 0.0 (0.0-0.2) th/mm3 Comprehensive Metabolic Panel 06/18/18 Range/Units 12:40 Sodium 139 (136-145) meq/L Potassium 4.5 (3.5-5.1) meq/L Chloride 104 (98-107) meq/L Carbon Dioxide 28.7 (21.0-32.0) meq/L BUN 20 H (7-18) mg/dL Creatinine 1.46 H (0.50-1.00) mg/dL Calcium 8.3 L (8.5-10.1) mg/dL AST 18 (15-37) U/L ALT 15 (10-53) U/L Alkaline Phosphatase 65 (45-117) U/L Total Protein 7.6 (6.4-8.2) g/dL Albumin 3.7 (3.4-5.0) g/dL Intake and Output 06/18/18 06/19/18 06/19/18 22:59 06:59 14:59 Other: # Voids 1 Weight 122.47 kg Weight On Admission 122.47 kg - Imaging and Cardiology Imaging: Impressions Chest X-Ray 06/18/18 12:35 CONCLUSION: 1. Cardiomegaly. 2. No pulmonary edema or focal infiltrate. Assessment and Plan - Assessment (1) Chest pain of uncertain etiology Code(s): R07.89 - Other chest pain Status: Acute Plan: ACS ruled out with 3 sets of EKGs and cardiac enzymes. Monitor on telemetry overnight. Seen and evaluated with Dr. Adalberto Wilkerson. Proceed with Sinaiscan this morning. If unremarkable, plans are to discharge home with follow-up with PCP. (2) CAD (coronary artery disease) Code(s): I25.10 - Atherosclerotic heart disease of [place] coronary artery without angina pectoris Status: Chronic Plan: Continue Imdur, unclear if also taking Ranexa. (3) Hypertension Code(s): I10 - Essential (primary) hypertension Status: Chronic Plan: To monitor. Continue home medication once updated in home medication EMR. (4) Parkinson disease Code(s): G20 - Parkinson's disease Status: Chronic Plan: Continue home medication (5) CKD (chronic kidney disease) Code(s): N18.9 - Chronic kidney disease, unspecified Status: Chronic Plan: Follow-up with nephrology and primary care provider as previously instructed. (6) UTI (urinary tract infection) Code(s): N39.0 - Urinary tract infection, site not specified Status: Acute Plan: Continue Levaquin ordered 06/15/18. (7) A-fib Code(s): I48.91 - Unspecified atrial fibrillation Status: Acute (2) CAD (coronary artery disease) Qualifiers: Associated angina: angina presence unspecified (3) Hypertension Qualifiers: Hypertension type: unspecified Qualified Code(s): I10 - Essential (primary) hypertension (6) UTI (urinary tract infection) Qualifiers: Urinary tract infection type: site unspecified
[2018-06-19 12:04] VITALS: BP 151/69; PULSE 66
[2018-06-19] MEDS ORDERED: Regadenoson Inj 0.4 MG/5 ML Syringe IV.PUSH ONE (13:07)
--- NOTE | 2018-06-19 14:42 | NM ---
EXAM DATE: 06/19/2018 2:35 PM EST AGE/SEX: 83 years / Female INDICATIONS:Angina. Myocardial infarction Left chest pain with dyspnea and nausea. CLINICAL DATA: This is the patient's initial encounter. Patient reports that signs and symptoms have been present for 1 day and indicates a pain score of 5/10. MEDICAL/SURGICAL HISTORY: Congestive heart failure. Diabetes mellitus type II. Hypertension. Stroke. Parkinson's disease. COPD. Coronary artery stent. Appendectomy. Cholecystectomy. COMPARISON: No prior exams available for comparison. DOSE: 11.0 mCi Tc 99m Myoview at rest 35.0 mCi [id number] at stress 0.4 mg Lexiscan STRESS SYMPTOMS: None. EJECTION FRACTION: 59 % TECHNIQUE: The patient underwent pharmacologic stress with infusion of prescribed dose. Continuous ECG tracing was monitored during stress. Gated SPECT imaging was performed after stress and conventi onal SPECT imaging was performed at rest. The examination was performed on a SPECT/CT scanner, both attenuation and non-corrected datasets were reviewed. FINDINGS: Distribution: The maximum perfused segment at stress is in the anterolateral wall. Perfusion Study: The pattern of perfusion at stress is within normal limits. Gated Study: There are intact wall motion and wall thickening without hypokinetic or dyskinetic segm ents. The ejection fraction is calculated at 59%. RISK CATEGORY: Low (<1% Annual Motality Rate) CONCLUSION: 1. No fixed or reversible perfusion defect is identified. 2. Normal left ventricle wall motion and ejection fraction. Electronically signed by: Mundo Abel MD Board Certified Radiologist 06/19/2018 2:41 PM EST
[2018-06-19] MEDS ORDERED: levoFLOXacin 500 MG Tablet PO ONE (16:00)
--- NOTE | 2018-06-19 16:43 | TR ---
Date Performed: 06/19/2018 Time Performed: 13:22:29 DOCTOR: Adalberto Wilkerson DRUG LIST: CLINICAL HISTORY: REASON FOR TEST: REASON FOR ENDING: OBSERVATION: CONCLUSION: COMMENTS: Lexiscan stress test was performed under standard four minute protocol. Radionuclide was injected one minute prior to ending the test. No electrocardiographic abormalities were present t o suggest ischemia. Nuclear imaging and interpretation are pending.
--- NOTE | 2018-06-19 17:02 | ECG ---
Date Performed: 06/18/2018 Time Performed: 18:42:11 PTAGE: 83 years EKG: ATRIAL FIBRILLATION RIGHT BUNDLE BRANCH BLOCK LEFT ANTERIOR FASCICULAR BLOCK ABNORMAL ECG PREVIOUS TRACING : 06/18/2018 12.38 Since previous tracing, no significant change noted DOCTOR: Adalberto Wilkerson Interpretating Date/Time 06/19/2018 17:00:38
--- NOTE | 2018-06-19 17:05 | ECG ---
Date Performed: 06/18/2018 Time Performed: 12:38:19 PTAGE: 83 years EKG: INDETERMINATE AXIS RIGHT BUNDLE BRANCH BLOCK ABNORMAL ECG INTERPRETATION BASED ON A DEFAULT AGE OF 40 YEARS PREVIOUS TRACING : 06/15/2018 14.23 Since previous tracing, no significant change noted DOCTOR: Adalberto Wilkerson Interpretating Date/Time 06/19/2018 17:04:42
== END 2018-06-19 17:57 | disposition home or self-care (01) ==
LOC: NEDA 12:23 → NEPC 12:23 → NEPGCP 17:08
PROVIDERS: ADMIT Internal Medicine Cardiovascular Disease; ATTEND Internal Medicine Cardiovascular Disease